=== PATIENT | male | born 1970 | race Caucasian/White ===

== ENCOUNTER → 2016-04-07 | Outpatient (CLI) | payer BC | END | disposition home or self-care (01) | LOC: RADECHMAIN 12:44 | PROVIDERS: ATTEND Family Medicine | DX: R00.1 Bradycardia, unspecified (principal); R00.0 Tachycardia, unspecified | CPT/HCPCS: 93225; 93226 ==

== ENCOUNTER → 2017-02-11 | Outpatient (CLI) | payer BC ==
[2017-02-11 10:35] VITALS: BP 143/92; PULSE 78; RESP 15; TEMP 98.6; BMI 47.0
[2017-02-11 17:38] LABS: HCT 49.3 % (39.0-53.0); HGB 15.9 gm/dL (13.0-17.5); MCH 31.3 pg (25.0-35.0); MCHC 32.3 g/dL (31.0-37.0); MCV 96.7 fL (80.0-100.0); Mean Platelet Volume 8.4; Platelet Count 266 k/uL (150-450); RDW 14.4 % (11.5-15.5); WBC 8.4 k/uL (3.8-10.6)
[2017-02-11 18:08] LABS: ALT 47 U/L (21-72); AST 33 U/L (17-59); Albumin 4.4 g/dL (3.5-5.0); Alkaline Phosphatase 72 U/L (38-126); Anion Gap 10 mmol/L; Blood Urea Nitrogen 13 mg/dL (9-20); Calcium 9.8 mg/dL (8.4-10.2); Carbon Dioxide 25 mmol/L (22-30); Chloride 104 mmol/L (98-107); Cholesterol 203 mg/dL (<200); Glucose 107 mg/dL (74-99); HDL Cholesterol 48 mg/dL (40-60); LDL Cholesterol,Calculated 122 mg/dL (0-99); Potassium 3.5 mmol/L (3.5-5.1); Sodium 139 mmol/L (137-145); Total Bilirubin 0.6 mg/dL (0.2-1.3); Total Protein 7.5 g/dL (6.3-8.2); Triglycerides 164 mg/dL (<150)
[2017-02-12 01:02] LABS: Iron Saturation 13.37 (15.00-50.00)
[2017-02-12 03:36] LABS: Vitamin D 25 Hydroxy 9.4 ng/mL (30.0-100.0)
[2017-02-12 04:06] LABS: Hemoglobin A1C 5.6 % (4.0-6.0)
--- NOTE | 2017-03-24 06:32 | P.HPBAR ---
Bariatric H&P - History & Physicial H&P Date: 02/11/17 History & Physicial: Visit/CC: bariatiric consult (sleeve) Patient initial contact: Initial weight: 143.29 kg Initial weight in pounds: 315.90 Height: 5 ft 8.75 in Initial BMI: 47.0 Last weight: Current weight: 143.29 kg Current weight in pounds: 315.90 Current BMI: 47.0 [place] body weight (based on NIH guidelines): 71.894 kg Excess body weight loss: 0.0% The patient is a 46 year-old M who presents for Bariatric Assessment. DATE OF SERVICE: 02/11/2017 REASON FOR CONSULTATION: Initial bariatric evaluation. HISTORY OF PRESENT ILLNESS: HISTORY OF PRESENT ILLNESS: Joey Chaney is a 47-year-old male who comes in with long-standing morbid obesity. He reports multiple food ALLERGIES. He cannot tolerate chicken or tuna and has trouble with fruits as well as nuts and apples. He is able to tolerate beef. He has had lactose intolerance as a child. He also reports severe gastroesophageal reflux disease most of which related to food intake and has an intolerance to omeprazole. No reports of diarrhea or constipation. He has not seen mechanical engineering intern in the past. He reports obstructive sleep apnea as result of his obesity. No reports of lupus or multiple sclerosis in the family. No reports of stomach or esophageal cancer. He still has his gallbladder. No family personal history of DVTs or pulmonary embolisms. He reports diabetes including hypertension and heart disease and atrial fibrillation with obesity in his father. He reports osteoarthritis of the lower back, left hip including bilateral knees. He also has osteoarthritis of the right shoulder. He also reports troubles with his feet and ankles. He has obstructive sleep apnea. He also reports hypertension. He has a separate history of H. pylori at least twice. At his height of 5 foot 8.75 inches, his ideal body weight is 163 pounds. He comes in weighing 315 pounds. Body mass index is 47.0. He is 152 pounds overweight. He has tried calorie restriction including exercise with minimal improvement of weight loss. PAST MEDICAL HISTORY: 1. Morbid obesity. 2. Body mass index of 47.0 3. Osteoarthritis of the knees. 4. Osteoarthritis of the hips. 5. Osteoarthritis of the lower back. 6. Obstructive sleep apnea. 7. Hypertensive heart disease. 8. Osteoarthritis of the ankles. 9. Gastroesophageal reflux disease. 10. Osteoarthritis of the right shoulder. 11. H pylori gastritis. 12. Lipoma of the abdominal wall. PAST SURGICAL HISTORY: 1. Rhinoplasty. 2. Vasectomy. 3. Tonsillectomy. HOME MEDICATIONS: 1. Hydrochlorothiazide. ALLERGIES: 1. Omeprazole. 2. Multiple food ALLERGIES. SOCIAL HISTORY: No active tobacco use. FAMILY HISTORY: No family history of ulcerative colitis disease or Crohn's disease. Family history of morbid obesity. No lupus in the family. No reports of stomach or esophageal cancer. Family history of diabetes type 2. REVIEW OF ORGAN SYSTEMS: CONSTITUTIONAL: At his height of 5 foot 8.75 inches, his ideal body weight is 163 pounds. He comes in weighing 315 pounds. Body mass index is 47.0. He is 152 pounds overweight. HEENT: Denies any active troubles with vision or hearing. No troubles with swallowing. ENDOCRINE: No diabetes. No hypothyroidism. CARDIOVASCULAR: No reports of palpitations or heart attacks or chest pain. RESPIRATORY: Has daytime somnolence. No asthma. GI: Denies any bright red blood per rectum. No diarrhea or constipation. MUSCULOSKELETAL: Has lower back pain and joint pain. Has osteoarthritis of the knees. History of bilateral lower extremity edema. NEURO: No headaches. No seizure disorders. PSYCH: No depression or suicidal ideation. RHEUMATOLOGIC: No lupus. No rheumatoid arthritis. HEMATOLOGIC: Denies any abnormal bleeding or bruising. No personal history of DVTs. SKIN: No rash. No skin cancer. PHYSICAL EXAM: VITAL SIGNS: Height 5 foot 8.75 inches, weight 315 pounds. BMI 47.0 Vital Signs Temp 98.6 F 02/11/17 10:05 Pulse 78 02/11/17 10:05 Resp 15 02/11/17 10:05 BP 143/92 02/11/17 10:05 Pulse Ox GENERAL: Well-developed in no acute distress. HEENT: No scleral icterus. Extraocular movements grossly intact. Hears conversational speech. No nasal drainage. NECK: Supple without lymphadenopathy. CHEST: Nonlabored respirations with equal bilateral excursions. CARDIOVASCULAR: Regular rate and regular rhythm. Distal 2+ pulses. ABDOMEN: Obese, soft, nontender, nondistended. MUSCULOSKELETAL: No clubbing, cyanosis. Gross strength 5/5 distal lower extremities. 1+ pre-tibial pitting edema. NEURO: No focal or lateralizing signs. Cranial nerves 2 through 12 grossly within normal limits. PSYCH: Appropriate affect. Alert and oriented to person, place and time. SKIN: Good skin turgor. Well perfused. ASSESSMENT: 1. Morbid obesity. 2. Body mass index of 47.0 3. Osteoarthritis of the knees. 4. Osteoarthritis of the hips. 5. Osteoarthritis of the lower back. 6. Obstructive sleep apnea. 7. Hypertensive heart disease. 8. Osteoarthritis of the ankles. 9. Gastroesophageal reflux disease. 10. Osteoarthritis of the right shoulder. 11. H pylori gastritis. 12. Family history of morbid obesity. 13. Family history of diabetes type 2. 14. Family history of heart disease. 15. Family history of gallbladder disease. 16. Lipoma of the abdominal wall. PLAN: 1. Surgical options including a band, gastric bypass, sleeve gastrectomy were described in detail. Alternatives such as gastric balloon including duodenal switch were described. 2. The [place] bariatric surgical collaborative data and outcomes calculator were described with surgical options. 3. Recommend a bariatric metabolic panel to evaluate for micro- including macronutrient deficiencies. 4. For history of daytime somnolence, recommend evaluation and treatment for sleep apnea. 5. Dietary surveillance and counseling was reviewed, I have asked increased protein intake to at least 80 grams daily. 6. Will need cardiac risk assessment. 7. Recommend medical risk assessment. 8. Psych assessment per insurance guidelines. 9. Follow up upon completion of upper endoscopy. 10. Recommend 12-lead EKG with family history of hypertensive heart disease. 11. Recommend upper endoscopy. 12. Recommend evaluation with mechanical engineering intern for desensitization of multiple ALLERGIES. 13. Recommend ultrasound of the gallbladder for family history of gallbladder disease including symptoms. 14. On further discussion, patient reports intermittent abdominal pain. Pain also potentially localized along the left lower quadrant first diverticulitis cannot be excluded. Recommend CT of the abdomen and pelvis. 15. He is also seeking excision of abdominal wall lipoma. Thank you for this consultation. Laboratory Last Values WBC 8.4 k/uL (3.8-10.6) 02/11/17 16:59 RBC 5.10 m/uL (4.30-5.90) 02/11/17 16:59 Hgb 15.9 gm/dL (13.0-17.5) 02/11/17 16:59 Hct 49.3 % (39.0-53.0) 02/11/17 16:59 MCV 96.7 fL (80.0-100.0) 02/11/17 16:59 MCH 31.3 pg (25.0-35.0) 02/11/17 16:59 MCHC 32.3 g/dL (31.0-37.0) 02/11/17 16:59 RDW 14.4 % (11.5-15.5) 02/11/17 16:59 Plt Count 266 k/uL (150-450) 02/11/17 16:59 Sodium 139 mmol/L (137-145) 02/11/17 16:59 Potassium 3.5 mmol/L (3.5-5.1) 02/11/17 16:59 Chloride 104 mmol/L (98-107) 02/11/17 16:59 Carbon Dioxide 25 mmol/L (22-30) 02/11/17 16:59 Anion Gap 10 mmol/L 02/11/17 16:59 BUN 13 mg/dL (9-20) 02/11/17 16:59 Creatinine 0.86 mg/dL (0.66-1.25) 02/11/17 16:59 Est GFR (MDRD) Af Amer >60 (>60 ml/min/1.73 sqM) 02/11/17 16:59 Est GFR (MDRD) Non-Af >60 (>60 ml/min/1.73 sqM) 02/11/17 16:59 Glucose 107 mg/dL (74-99) H 02/11/17 16:[address] Glu mg/dL 114 02/11/17 16:59 Hemoglobin A1c 5.6 % (4.0-6.0) 02/11/17 16:59 Calcium 9.8 mg/dL (8.4-10.2) 02/11/17 16:59 Iron 44 ug/dL (65-175) L 02/11/17 16:59 TIBC 329 ug/dL (228-460) 02/11/17 16:59 Iron Saturation 13.37 (15.00-50.00) L 02/11/17 16:59 Ferritin 119.3 ng/mL (22.0-322.0) 02/11/17 16:59 Total Bilirubin 0.6 mg/dL (0.2-1.3) 02/11/17 16:59 AST 33 U/L (17-59) 02/11/17 16:59 ALT 47 U/L (21-72) 02/11/17 16:59 Alkaline Phosphatase 72 U/L (38-126) 02/11/17 16:59 Total Protein 7.5 g/dL (6.3-8.2) 02/11/17 16:59 Albumin 4.4 g/dL (3.5-5.0) 02/11/17 16:59 Triglycerides 164 mg/dL (<150) H 02/11/17 16:59 Cholesterol 203 mg/dL (<200) H 02/11/17 16:59 LDL Cholesterol, Calc 122 mg/dL (0-99) H 02/11/17 16:59 HDL Cholesterol 48 mg/dL (40-60) 02/11/17 16:59 Vitamin B1 50 ug/L (38-122) 02/11/17 16:59 Vitamin B12 501.0 pg/mL (200.0-944.0) 02/11/17 16:59 Vitamin D 25-Hydroxy 9.4 ng/mL (30.0-100.0) L 02/11/17 16:59 Folate 14.8 ng/mL 02/11/17 16:59 TSH 2.340 mIU/L (0.465-4.680) 02/11/17 16:59 EKG EKG PERFORMED 02/11/17 16:59 Iron is low. Triglycerides are elevated. Cholesterol elevated. Vitamin D low. Recommend iron including vitamin D supplement. Past Medical History Past Medical History: GERD/Reflux, Hypertension, Osteoarthritis (OA), Sleep Apnea/CPAP/BIPAP Additional Past Medical History / Comment(s): Hx of H-pylori dx x2, right shoulder pain, pain in lower left lumbar region with radiculopathy to left leg, bilateral knee pain, History of Any Multi-Drug Resistant Organisms: None Reported Past Surgical History: Hysterectomy, Tonsillectomy Additional Past Surgical History / Comment(s): rhinoplasty x2 for deviated septum and injury to nose, vasectomy, Additional Past Anesthesia/Blood Transfusion Reaction / Comm: Difficulty waking up Past Psychological History: No Psychological Hx Reported Smoking Status: Never smoker Past Alcohol Use History: Rare Past Drug Use History: None Reported - Past Family History Mother Family Medical History: No Reported History Father Family Medical History: Diabetes Mellitus, Hypertension Additional Family Medical History / Comment(s): Type 2 DM, Surgical - Exam Vital Signs Temp Pulse Resp BP 98.6 F 78 15 143/92 02/11/17 10:05 02/11/17 10:05 02/11/17 10:05 02/11/17 10:05 Results - Labs 02/11/17 16:59 02/11/17 16:59 Bariatric Checklist Checklist: Plan: Checklist: EGD: 1. Hiatal hernia: 2. H. Pylori: HgbA1c: Vitamin D: Smoking: Never smoker Primary care physician referral: mell diamond Psychiatry clearance: Cardiology clearance: Sleep study: Diet journal: VTE risk score: VTE risk level: Rehab needs at discharge:
== END | disposition home or self-care (01) ==
LOC: BARWHC3 09:27
PROVIDERS: ATTEND Surgery Plastic and Reconstructive Surgery
DX: Z48.815 Encounter for surgical aftercare following surgery on the digestive system (principal); E66.01 Morbid (severe) obesity due to excess calories; M17.0 Bilateral primary osteoarthritis of knee; M16.0 Bilateral primary osteoarthritis of hip; M47.816 Spondylosis without myelopathy or radiculopathy, lumbar region; G47.33 Obstructive sleep apnea (adult) (pediatric); I11.9 Hypertensive heart disease without heart failure; M19.071 Primary osteoarthritis, right ankle and foot; M19.072 Primary osteoarthritis, left ankle and foot; K21.9 Gastro-esophageal reflux disease without esophagitis; M19.011 Primary osteoarthritis, right shoulder; B96.81 Helicobacter pylori [H. pylori] as the cause of diseases classified elsewhere; D17.5 Benign lipomatous neoplasm of intra-abdominal organs; E44.0 Moderate protein-calorie malnutrition; E55.9 Vitamin D deficiency, unspecified; G47.30 Sleep apnea, unspecified; E88.81 Metabolic syndrome and other insulin resistance; M19.90 Unspecified osteoarthritis, unspecified site; Z68.42 Body mass index [BMI] 45.0-49.9, adult; Z90.89 Acquired absence of other organs; Z79.899 Other long term (current) drug therapy; Z91.010 Allergy to peanuts; Z91.012 Allergy to eggs; Z91.013 Allergy to seafood; Z91.011 Allergy to milk products
CPT/HCPCS: 80053; 80061; 82306; 82607; 82728; 82746; 83036; 83540; 83550; 84425; 84443; 85027; 93005; 99211

== ENCOUNTER → 2017-02-26 | Outpatient (CLI) | payer BC ==
--- NOTE | 2017-02-26 15:56 | US ---
EXAMINATION TYPE: US gallbladder DATE OF EXAM: 02/26/2017 COMPARISON: NONE CLINICAL HISTORY: K52.00 Diverticulitis R10.12 Left Lower Quad. Patient being evaluated prior to estrellita jessee sleeve bypass surgery; Ht 5'10, Wt 304lbs EXAM MEASUREMENTS: Liver Length: 13.4 cm Gallbladder Wall: 0.2 cm CBD: 0.4 cm Right Kidney: 10.8 x 6.9 x 6.0 cm Pancreas: mid and tail obscured by overlying bowel gas Liver: fatty as is hyperechoic to right renal cortex Gallbladder: wnl Evidence for sonographic Finley's sign: Yes CBD: wnl Right Kidney: wnl Visualized pancreas is slightly heterogeneous without worrisome mass or ductal dilatation. Visualized liver is markedly heterogeneously hyperechoic. No intrahepatic ductal dilatation is seen. Evaluation for focal masses is suboptimal due to the heterogeneity. IMPRESSION: Marked fatty infiltration of liver noted.
--- NOTE | 2017-02-26 18:02 | CT ---
EXAMINATION TYPE: CT abdomen pelvis w con DATE OF EXAM: 02/26/2017 COMPARISON: NONE HISTORY: LUQ pain. CT DLP: 3714.9 mGycm Automated exposure control for dose reduction was used. TECHNIQUE: Helical acquisition of images was performed from the lung bases through the pelvis. CONTRAST: Performed with Oral Contrast and with IV Contrast, patient injected with 100ml mL of Omnipaque 300. FINDINGS: Lung bases are clear. There is no pleural effusion. Heart size is fairly normal. Liver spleen pancreas gallbladder appear normal. Bile ducts are not dilated. There is probably a smal l hiatal hernia. There is no adrenal mass. Kidneys show satisfactory contrast opacification. There is no hydronephrosi s. There is no retroperitoneal adenopathy. There is no ascites. Bladder distends smoothly. There is n o sign of a pelvic mass. There are some diverticula of the left colon. There is no ascites. There is no sign of a pelvic mass. There are some phleboliths in the pelvis on the right side. The appendix appears normal. I see no intestinal wall thickening. There is no sign of bowel obstructi on. I see no bony destructive process. IMPRESSION: THERE IS MINIMAL COLONIC DIVERTICULOSIS WITHOUT SIGN OF DIVERTICULITIS. NO SIGN OF ACUTE ABDOMEN AND PELVIS. SMALL HIATAL HERNIA.
== END | disposition home or self-care (01) ==
LOC: RADCTMAIN 14:49
PROVIDERS: ATTEND Surgery Plastic and Reconstructive Surgery
DX: K57.30 Diverticulosis of large intestine without perforation or abscess without bleeding (principal); K44.9 Diaphragmatic hernia without obstruction or gangrene; K76.0 Fatty (change of) liver, not elsewhere classified
CPT/HCPCS: 76705; 74177; Q9967

== ENCOUNTER 2017-03-31 08:01 | Day surgery (SDC) | payer BC ==
[2017-03-26 11:19] VITALS: BMI 42.9
[~2017-03-31 08:01] MED LIST: LACTATED RINGERS 1,000 ML IV SCH; LIDOCAINE 1% 20 ML VIAL (10MG/ML) FOR IV START INTRADERMA PRN
[2017-03-31 08:29] VITALS: RESP 18; TEMP 98.1
--- NOTE | 2017-03-31 08:56 | P.GSHP ---
History of Present Illness H&P Date: 03/31/17 CHIEF COMPLAINT: GERD HISTORY OF PRESENT ILLNESS: The patient is a 47-year-old male who presents reports gastroesophageal reflux disease. Upper endoscopy was offered for further evaluation and management. PAST MEDICAL HISTORY: Please see list. PAST SURGICAL HISTORY: Please see list. MEDICATIONS: Please see list. ALLERGIES: Please see list. SOCIAL HISTORY: No illicit drug use FAMILY HISTORY: No reports of Crohn disease or ulcerative colitis. REVIEW OF ORGAN SYSTEMS: CONSTITUTIONAL: No reports of fevers or chills. GI: Denies any blood in stools or constipation. PHYSICAL EXAM: VITAL SIGNS: Stable GENERAL: Well-developed and pleasant in no acute distress. HEENT: No scleral icterus. Extraocular movements grossly intact. Moist buccal mucosa. NECK: Supple without lymphadenopathy. CHEST: Unlabored respirations. Equal bilateral excursions. CARDIOVASCULAR: Regular rate and rhythm. Distal 2+ pulses. ABDOMEN: Soft, nondistended. MUSCULOSKELETAL: No clubbing, cyanosis, or edema. ASSESSMENT: 1. Gastroesophageal reflux disease PLAN: 1. Recommend proceeding with an upper endoscopy Past Medical History Past Medical History: GERD/Reflux, Hypertension, Osteoarthritis (OA), Sleep Apnea/CPAP/BIPAP Additional Past Medical History / Comment(s): Hx of H-pylori dx x2, NO MACHINE FOR SLEEP APNEA, ABLE TO USE BREATHE RIGHT STRIPS History of Any Multi-Drug Resistant Organisms: None Reported Past Surgical History: Tonsillectomy Additional Past Surgical History / Comment(s): rhinoplasty x2 for deviated septum and injury to nose, vasectomy, Past Anesthesia/Blood Transfusion Reactions: Previous Problems w/ Anesthesia Additional Past Anesthesia/Blood Transfusion Reaction / Comment(s): Difficulty waking up Smoking Status: Never smoker - Past Family History Mother Family Medical History: No Reported History Father Family Medical History: Diabetes Mellitus, Hypertension Additional Family Medical History / Comment(s): Type 2 DM, Medications and Allergies Home Medications Medication Instructions Recorded Confirmed Type Calcium Carbonate [Tums] 1 tab PO DIRECTED PRN 03/26/17 03/26/17 History Verapamil HCl [Verapamil ER] 180 mg PO QAM 03/26/17 03/31/17 History Allergies Allergy/AdvReac Type Severity Reaction Status Date / Time corn Allergy Anaphylaxis Verified 03/31/17 08:29 lactose Allergy Diarrhea Verified 03/31/17 08:29 peas Allergy Anaphylaxis Verified 03/31/17 08:29 pollen extracts Allergy Rash/Hives Verified 03/31/17 08:29 Pork/Porcine Containing Allergy Nausea & Verified 03/31/17 08:29 Products Vomiting & Diarrhea Poultry Allergy Anaphylaxis Verified 03/31/17 08:29 tuna oil Allergy Anaphylaxis Verified 03/31/17 08:29 omeprazole AdvReac Severe "BONE PAIN" Verified 03/31/17 08:29 Surgical - Exam Vital Signs Temp Pulse Resp BP Pulse Ox 98.1 F 87 18 139/92 97 03/31/17 08:25 03/31/17 08:25 03/31/17 08:25 03/31/17 08:25 03/31/17 08:25
[2017-03-31] MEDS ORDERED: PROPOFOL 10 MG/ML 20 ML VIAL IV ONE (09:29)
[2017-03-31] MEDS ORDERED: LIDOCAINE 1% INJ 10MG/ML (20 ML MDV) ONE (09:29)
--- NOTE | 2017-03-31 09:40 | P.PCN ---
Date of Procedure: 03/31/17 Description of Procedure: PREOPERATIVE DIAGNOSIS: Gastroesophageal reflux disease. Morbid obesity. POSTOPERATIVE DIAGNOSIS: Morbid obesity. Gastritis. Gastroesophageal reflux disease. Diaphragmatic hiatal hernia without obstruction. OPERATION: Esophagogastroduodenoscopy with biopsies along antrum. SURGEON: Ximena Caro MD ANESTHESIA: MAC. INDICATIONS: The patient is a 47-year-old male who presents with a history of reflux disease. Benefits and risks of the procedure were described. Informed consent was obtained. DESCRIPTION: The patient was brought into the endoscopy suite and laid in the left lateral decubitus position. An Olympus gastroscope was passed along the posterior oropharynx down to the distal esophagus where the squamocolumnar junction was encountered at 36 cm from the incisors. The stomach was entered and no bile reflux was found. Additional findings are listed below. Biopsies with cold forceps were obtained of the antrum. The first through third portion of the duodenum was examined and unremarkable. Retroflexion of the scope confirmed Hill grade 4 lower esophageal valve. The squamocolumnar junction demostrated chronic LA grade C erosive esophagitis. The stomach was desufflated. The patient tolerated the procedure well. FINDINGS: Squamocolumnar junction 36 cm from the incisors. Diaphragmatic hiatus at 40 cm. Hiatal hernia 4 cm, sliding Hill grade 4 lower esophageal valve. LA grade C erosive esophagitis, starting at 34 cm from the incisors. No active duodenitis. Chronic gastritis. RECOMMENDATIONS: Continue medical therapy. Further recommendations pending results of pathology report. Upper endoscopy as needed. Will benefit from antireflux surgical procedure Plan - Discharge Summary New Discharge Prescriptions: No Action Verapamil HCl [Verapamil ER] 180 mg PO QAM Calcium Carbonate [Tums] 1 tab PO DIRECTED PRN PRN Reason: GERD Discharge Medication List Calcium Carbonate [Tums] 1 tab PO DIRECTED PRN 03/26/17 [History] Verapamil HCl [Verapamil ER] 180 mg PO QAM 03/26/17 [History]
[2017-03-31 10:03] VITALS: BP 155/96; PULSE 84
== END 2017-03-31 10:22 | disposition home or self-care (01) ==
LOC: ORWHC2ENDO 08:01
PROVIDERS: ATTEND Surgery Plastic and Reconstructive Surgery
DX: K20.0 Eosinophilic esophagitis (principal); L92.2 Granuloma faciale [eosinophilic granuloma of skin]; K44.9 Diaphragmatic hernia without obstruction or gangrene; K29.50 Unspecified chronic gastritis without bleeding; K21.9 Gastro-esophageal reflux disease without esophagitis; E66.01 Morbid (severe) obesity due to excess calories; Z68.41 Body mass index [BMI] 40.0-44.9, adult; I10 Essential (primary) hypertension; Z79.899 Other long term (current) drug therapy; Z88.8 Allergy status to other drugs, medicaments and biological substances
CPT/HCPCS: 88305; 43239; J2001; J2704; 88312

== ENCOUNTER → 2017-04-07 | Outpatient (CLI) | payer BC ==
[2017-04-07 16:39] VITALS: BP 146/85; PULSE 81; RESP 16; TEMP 97.7; BMI 46.0
--- NOTE | 2017-06-14 18:22 | P.PN ---
Subjective Progress Note Date: 04/07/17 DATE OF SERVICE: 04/07/2017 CHIEF COMPLAINT: Bariatric evaluation HISTORY OF PRESENT ILLNESS: HISTORY OF PRESENT ILLNESS: Joey Chaney is a 47-year-old male who comes in with long-standing morbid obesity. He initially presented [facility] January 2017. He reports intolerance to fatty greasy foods. He has completed an upper endoscopy demonstrating hiatal hernia for which he is symptomatic. His multiple food ALLERGIES. He is looking into the sleeve gastrectomy. As a result of his obesity, he has obstructive sleep apnea including hypertension as well as gastroesophageal reflux disease. At his height of 5 foot 8.75 inches, his ideal body weight is 163 pounds. He comes in weighing 309 pounds. He has lost 6 pounds in 2 months. Body mass index was 47.0 now down to 46.0. He is 146 pounds overweight. PAST MEDICAL HISTORY: 1. Morbid obesity. 2. Body mass index of 47.0 3. Osteoarthritis of the knees. 4. Osteoarthritis of the hips. 5. Osteoarthritis of the lower back. 6. Obstructive sleep apnea. 7. Hypertensive heart disease. 8. Osteoarthritis of the ankles. 9. Gastroesophageal reflux disease. 10. Osteoarthritis of the right shoulder. 11. H pylori gastritis. 12. Lipoma of the abdominal wall. PAST SURGICAL HISTORY: 1. Rhinoplasty. 2. Vasectomy. 3. Tonsillectomy. 4. Upper endoscopy HOME MEDICATIONS: 1. Verapamil 2. Zantac 3. Tums ALLERGIES: 1. Omeprazole. 2. Multiple food ALLERGIES. SOCIAL HISTORY: No active tobacco use. FAMILY HISTORY: No family history of ulcerative colitis disease or Crohn's disease. Family history of morbid obesity. No lupus in the family. No reports of stomach or esophageal cancer. Family history of diabetes type 2. REVIEW OF ORGAN SYSTEMS: CONSTITUTIONAL: At his height of 5 foot 8.75 inches, his ideal body weight is 163 pounds. He comes in weighing 309 pounds. He has lost 6 pounds in 2 months. Body mass index was 47.0 now down to 46.0. He is 146 pounds overweight. HEENT: Denies any active troubles with vision or hearing. No troubles with swallowing. ENDOCRINE: No diabetes. No hypothyroidism. CARDIOVASCULAR: No reports of palpitations or heart attacks or chest pain. RESPIRATORY: Has daytime somnolence. No asthma. Has obstructive sleep apnea. GI: Denies any bright red blood per rectum. No diarrhea or constipation. Has gastroesophageal reflux disease. MUSCULOSKELETAL: Has lower back pain and joint pain. Has osteoarthritis of the knees. NEURO: No headaches. No seizure disorders. PSYCH: No depression or suicidal ideation. RHEUMATOLOGIC: No lupus. No rheumatoid arthritis. HEMATOLOGIC: Denies any abnormal bleeding or bruising. No personal history of DVTs. SKIN: No rash. No skin cancer. PHYSICAL EXAM: VITAL SIGNS: Height 5 foot 8.75 inches, weight 309 pounds. BMI 46.0 Vital Signs Temp 97.7 F 04/07/17 18:00 Pulse 81 04/07/17 18:00 Resp 16 04/07/17 18:00 BP 146/85 04/07/17 18:00 Pulse Ox GENERAL: Well-developed in no acute distress. HEENT: No scleral icterus. Extraocular movements grossly intact. Hears conversational speech. No nasal drainage. NECK: Supple without lymphadenopathy. CHEST: Nonlabored respirations with equal bilateral excursions. CARDIOVASCULAR: Regular rate and regular rhythm. Distal 2+ pulses. ABDOMEN: Obese, soft, nontender, nondistended. MUSCULOSKELETAL: No clubbing, cyanosis. Gross strength 5/5 distal lower extremities. No pre-tibial pitting edema. NEURO: No focal or lateralizing signs. Cranial nerves 2 through 12 grossly within normal limits. PSYCH: Appropriate affect. Alert and oriented to person, place and time. SKIN: Good skin turgor. Well perfused. LABS: Iron is low. Triglycerides are elevated. Cholesterol elevated. Vitamin D low. EGD FINDINGS: Squamocolumnar junction 36 cm from the incisors. Diaphragmatic hiatus at 40 cm. Hiatal hernia 4 cm, sliding Hill grade 4 lower esophageal valve. LA grade C erosive esophagitis, starting at 34 cm from the incisors. No active duodenitis. Chronic gastritis. PATHOLOGY: Final Pathologic Diagnosis A. STOMACH, BIOPSY: MILD CHRONIC GASTRITIS. B. ESOPHAGUS, BIOPSY: ACUTE AND CHRONIC ESOPHAGITIS WITH RARE EOSINOPHILS, AND INFLAMED GRANULATION TISSUE AND ACUTE INFLAMMATORY CELL EXUDATE CONSISTENT WITH ULCERATION. STUDIES: Ultrasound of the right upper quadrant demonstrates hepatomegaly and fatty liver disease CT of the abdomen and pelvis demonstrates diverticulosis including hiatal hernia and fatty liver disease ASSESSMENT: 1. Morbid obesity. 2. Body mass index of 47.0 to 46.0 3. Osteoarthritis of the knees. 4. Osteoarthritis of the hips. 5. Osteoarthritis of the lower back. 6. Obstructive sleep apnea. 7. Hypertensive heart disease. 8. Osteoarthritis of the ankles. 9. Gastroesophageal reflux disease. 10. Osteoarthritis of the right shoulder. 11. H pylori gastritis. 12. Family history of morbid obesity. 13. Family history of diabetes type 2. 14. Family history of heart disease. 15. Family history of gallbladder disease. 16. Hiatal hernia 17. Diverticulosis 18. Fatty liver disease 19. Iron deficiency 20. Vitamin D deficiency 21. Hypertriglyceridemia PLAN: 1. All of the studies were reviewed for history of chronic abdominal pain consistent with hiatal hernia including fatty liver disease. 2. The severity of gastroesophageal reflux disease, benefits and risks of hiatal hernia repair were described. 3. Recommend manometry for robotic-assisted hiatal hernia repair Did 4. Symptoms are highly suspicious for cholecystitis, chronic. A potential cholecystectomy in the future was described. 5. Inpatient hospitalization overnight for robotic-assisted hiatal hernia repair with mesh. 6. DVT prophylaxis. 7. Antibiotic prophylaxis Objective - Vital Signs Vital signs: Vital Signs Temp 97.7 F 04/07/17 16:36 Pulse 81 04/07/17 16:36 Resp 16 04/07/17 16:36 BP 146/85 04/07/17 16:36 Pulse Ox Intake & Output 04/06/17 04/07/17 04/07/17 18:59 06:59 18:59 Weight 140.415 kg
== END | disposition home or self-care (01) ==
LOC: BARWHC3 15:27
PROVIDERS: ATTEND Surgery Plastic and Reconstructive Surgery
DX: E66.01 Morbid (severe) obesity due to excess calories (principal); M17.0 Bilateral primary osteoarthritis of knee; M16.0 Bilateral primary osteoarthritis of hip; M19.90 Unspecified osteoarthritis, unspecified site; G47.33 Obstructive sleep apnea (adult) (pediatric); I11.9 Hypertensive heart disease without heart failure; I50.9 Heart failure, unspecified; K21.9 Gastro-esophageal reflux disease without esophagitis; M19.011 Primary osteoarthritis, right shoulder; B96.81 Helicobacter pylori [H. pylori] as the cause of diseases classified elsewhere; Z82.49 Family history of ischemic heart disease and other diseases of the circulatory system; Z83.3 Family history of diabetes mellitus; Z83.79 Family history of other diseases of the digestive system; K44.9 Diaphragmatic hernia without obstruction or gangrene; K57.90 Diverticulosis of intestine, part unspecified, without perforation or abscess without bleeding; K76.0 Fatty (change of) liver, not elsewhere classified; D50.9 Iron deficiency anemia, unspecified; E55.9 Vitamin D deficiency, unspecified; E78.1 Pure hyperglyceridemia; Z68.42 Body mass index [BMI] 45.0-49.9, adult; Z88.8 Allergy status to other drugs, medicaments and biological substances; Z91.018 Allergy to other foods; Z79.899 Other long term (current) drug therapy
CPT/HCPCS: 99211

== ENCOUNTER → 2017-06-29 | Outpatient (CLI) | payer BC ==
--- NOTE | 2017-06-29 17:54 | CONS ---
CONSULTATION DATE OF SERVICE: 06/29/2017. REASON FOR CONSULTATION: Obstructive sleep apnea. HISTORY OF PRESENT ILLNESS: This is a 47-year-old obese male patient, diagnosed having obstructive sleep apnea more than 10 years ago. He was briefly placed on BiPAP and subsequently quit the treatment. Over the years he gained a significant amount of weight and currently is up to 316 and his current BMI is 47.3. He is interested in obtaining a gastric sleeve procedure. He was [facility] for reevaluation regarding obstructive sleep apnea. He is currently chronically fatigued and sleepy. His notes that he snores very loud and he quits breathing. His sleep is fragmented. He goes to bed around 9-10 p.m. wakes up 6:00 am in the morning. His non-refreshed. He drinks coffee. 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 Unable to lose weight successfully. He has a hiatal hernia. He has hypertension and occasional acid reflux. No sleep paralysis. No hallucinations. No cataplexy. No substance abuse. No head trauma. He is being investigated also for hypercoagulable state, knowing that his brother from a complication of a DVT and pulmonary embolism following cervical spine surgery. Note that two of his brothers and his father had obstructive sleep apnea in addition. PAST MEDICAL HISTORY: 1. Obstructive sleep apnea. 2. Hiatal hernia. 3. Obesity. 4. Hypertension. 5. Acid reflux. SURGICAL HISTORY: Rhinoplasty, vasectomy and tonsillectomy. DRUG ALLERGIES: Not known. The patient has allergic rhinitis and is allergic to dust. He also has allergies to pollen and tuna. OUTPATIENT MEDICATIONS: Lisinopril and Zantac. SOCIAL HISTORY: Nonsmoker. No history of IV drugs. Drinks 2 to 3 cups of coffee a day. FAMILY HISTORY: Brother x2 and father have obstructive sleep apnea. DVT and pulmonary embolism also runs in the family. REVIEW OF SYSTEMS: A 12-point review of systems was done. Positive for weight gain. Positive for increased lethargy, sleepiness, tiredness and fatigue. No sleep paralysis. No hallucinations. No cataplexy. No dreams or nightmares. No unusual behavior at nighttime during sleep. No history of any motor vehicle accidents because of falling sleepy. No anxiety. No depression. No grinding of the teeth. No sleepwalking or sleeptalking. No palpitations, no heartburn, no chest pain. No angina or shortness of breath. No sweating. No sleep talking. No restlessness in the lower extremities. No sexual dysfunction. PHYSICAL EXAMINATION: BP is 134/72, pulse 100, respirations 16, temperature 98.2, saturation 97% on room air. Weight is around 16, height is 5 feet 8 inches. GENERAL APPEARANCE: Calm and comfortable. HEAD: Atraumatic, normocephalic. NECK: Short, supple. Mallampati Class 1. There is no goiter or neck masses. LUNGS: Clear to auscultation. HEART: Sounds regular rhythm. Normal S1, S2. No S3. No murmurs. ABDOMEN: Soft, nontender. No organomegaly. EXTREMITIES: No edema. No cyanosis or clubbing. SKIN: Negative for any wounds or ulcerations. NEUROLOGIC: Positive, alert, oriented x3. There are no focal neurological deficits. PSYCHIATRIC: Negative for anxiety or depression. IMPRESSION: 1. Symptomatic obstructive sleep apnea. The patient is presenting for reevaluation as the patient has experienced worsening hypersomnia and sleepiness. 2. Morbid obesity. BMI of 47.3. 3. Previous history of obstructive sleep apnea diagnosed more than 10 years ago. Currently on no treatment. 4. Hiatal hernia. 5. Hypertension. 6. Acid reflux. PLAN: 1. Proceed with a screening polysomnogram to reevaluate the presence and severity of obstructive sleep apnea and treat accordingly. 2. The patient's bariatric surgeon is currently undergoing evaluation for bariatric surgery. 3. Optimize sleep hygiene measures. 4. Complete the workup for hypercoagulable state, especially with positive family history. 5. We will continue to follow and treat his sleep apnea based on the results of the sleep study. MMODL / IJN: [id number] /
== END | disposition home or self-care (01) ==
LOC: SLEEP 15:47
PROVIDERS: ATTEND Internal Medicine Critical Care Medicine
DX: G47.33 Obstructive sleep apnea (adult) (pediatric) (principal); E66.01 Morbid (severe) obesity due to excess calories; K44.9 Diaphragmatic hernia without obstruction or gangrene; I10 Essential (primary) hypertension; K21.9 Gastro-esophageal reflux disease without esophagitis; Z79.899 Other long term (current) drug therapy; Z91.048 Other nonmedicinal substance allergy status; Z91.09 Other allergy status, other than to drugs and biological substances; Z99.89 Dependence on other enabling machines and devices
CPT/HCPCS: 99211

== ENCOUNTER → 2017-09-20 | Outpatient (CLI) | payer BC ==
[2017-09-20 15:47] VITALS: BMI 47.5
== END | disposition home or self-care (01) ==
LOC: BARWHC3 08:47
PROVIDERS: ATTEND Surgery Plastic and Reconstructive Surgery
DX: E66.01 Morbid (severe) obesity due to excess calories (principal); Z68.42 Body mass index [BMI] 45.0-49.9, adult
CPT/HCPCS: 97804

== ENCOUNTER → 2017-10-20 | Outpatient (CLI) | payer BC ==
--- NOTE | 2017-10-20 17:45 | PN ---
PROGRESS NOTE This is a 47-year-old male patient diagnosed having severe symptomatic obstructive sleep apnea with an AHI of 87, currently coming in for a compliancy check regarding his new CRISTELA treatment. The patient underwent a CPAP titration. He was titrated to a CPAP pressure of 12 cm of water and titration was very successful. On today's evaluation, the patient is a totally different person. He feels great. No hypersomnia or sleepiness during the day. Sleep quality is improved and he is benefiting from the treatment. I checked his compliance data over the past 60 days. He has been compliant, using the CPAP every night without any interruption. His CPAP use for more than 4 hours is 92%. His AHI while on treatment is down to 4.6. Leak factor is 4.2 L/minute. He is averaging around 5 hours and 13 minutes of CPAP use per night. No major hypersomnia or sleepiness during the day. The patient feels great for the time being. No other complaints otherwise for now. He is utilizing an AirFit F20 full-face mask. REVIEW OF SYSTEMS: Twelve-point review of systems was done. Positive findings are all mentioned above in the history of present illness. PHYSICAL EXAMINATION: BP is 141/79, pulse 76, respirations 16, temperature 97.8, saturation 95% on room air. Weight is 321. GENERAL APPEARANCE: Calm, comfortable. Head is atraumatic, normocephalic. NECK: Supple. Short. Crowding of the posterior pharynx. There is no goiter or neck masses. LUNGS: Diminished breath sounds bilaterally; otherwise clear. HEART: Heart sounds are regular rate and rhythm. Normal S1, S2. No S3, S4. No murmurs. ABDOMEN: Soft, nontender. No organomegaly. EXTREMITIES: No edema. No cyanosis or clubbing. IMPRESSION: 1. Severe obstructive sleep apnea with an AHI of 87, currently undergoing successful CPAP therapy at a pressure of 12. 2. Morbid obesity. Still being followed up by the [facility] for bariatric surgery. 3. Hiatal hernia. 4. Chronic hypersomnia, recovered. 5. Hypertension. 6. Acid reflux. PLAN: 1. Encourage weight loss. 2. Sleep in a sidewise body position. 3. Implement good sleep hygiene principles. 4. Continue CPAP therapy at a pressure of 12. 5. Continue the same mask interface. 6. Treatment is successful. Follow up with Bariatric Surgery regarding weight loss. 7. See me back in a year's time, earlier if needed. MMODL / IJN: [id number] /
== END | disposition home or self-care (01) ==
LOC: SLEEP 15:55
PROVIDERS: ATTEND Internal Medicine Critical Care Medicine
DX: G47.33 Obstructive sleep apnea (adult) (pediatric) (principal); E66.01 Morbid (severe) obesity due to excess calories; K44.9 Diaphragmatic hernia without obstruction or gangrene; I10 Essential (primary) hypertension; K21.9 Gastro-esophageal reflux disease without esophagitis; Z99.89 Dependence on other enabling machines and devices; Z98.84 Bariatric surgery status

== ENCOUNTER → 2017-12-01 | Outpatient (CLI) | payer BC ==
[2017-12-01 15:04] VITALS: BP 124/73; PULSE 55; RESP 16; TEMP 98.2; BMI 43.1
--- NOTE | 2017-12-01 15:04 | P.PN ---
Subjective Progress Note Date: 12/01/17 HPI: He is following his diet. He has a symptomatic hiatal hernia. ABDOMEN: Soft nontender. PLAN: 1. Went over robotic hiatal hernia.
== END | disposition home or self-care (01) ==
LOC: BARWHC3 14:31
PROVIDERS: ATTEND Surgery Plastic and Reconstructive Surgery
DX: K44.9 Diaphragmatic hernia without obstruction or gangrene (principal)
CPT/HCPCS: 99211

== ENCOUNTER → 2017-12-13 | Outpatient (CLI) | payer BC ==
[2017-12-13 14:02] LABS: Basophils % (A) 1 %; Eosinophils # (A) 0.2 k/uL (0-0.7); Eosinophils % (A) 3 %; HCT 47.5 % (39.0-53.0); HGB 15.2 gm/dL (13.0-17.5); Lymphocytes % (A) 35 %; MCH 30.9 pg (25.0-35.0); MCHC 31.9 g/dL (31.0-37.0); MCV 97.1 fL (80.0-100.0); Mean Platelet Volume 8.8; Monocytes # (A) 0.3 k/uL (0-1.0); Monocytes % (A) 6 %; Neutrophils % (A) 53 %; Platelet Count 192 k/uL (150-450); RDW 13.3 % (11.5-15.5); WBC 5.8 k/uL (3.8-10.6)
[2017-12-13 14:10] LABS: ALT 37 U/L (21-72); AST 35 U/L (17-59); Albumin 4.5 g/dL (3.5-5.0); Alkaline Phosphatase 69 U/L (38-126); Anion Gap 11 mmol/L; Blood Urea Nitrogen 14 mg/dL (9-20); Calcium 9.8 mg/dL (8.4-10.2); Carbon Dioxide 22 mmol/L (22-30); Chloride 108 mmol/L (98-107); Glucose 81 mg/dL (74-99); Potassium 3.9 mmol/L (3.5-5.1); Sodium 141 mmol/L (137-145); Total Bilirubin 0.9 mg/dL (0.2-1.3); Total Protein 7.4 g/dL (6.3-8.2)
== END | disposition home or self-care (01) ==
LOC: LABPAT 12:39
PROVIDERS: ATTEND Surgery Plastic and Reconstructive Surgery
DX: Z01.812 Encounter for preprocedural laboratory examination (principal); K44.9 Diaphragmatic hernia without obstruction or gangrene
CPT/HCPCS: 36415; 80053; 85025; 93005

== ENCOUNTER 2017-12-20 07:40 | Inpatient (IN) | payer BC ==
--- NOTE | 2017-12-20 06:44 | P.GSHP ---
History of Present Illness H&P Date: 12/20/17 CHIEF COMPLAINT: Gastroesophageal reflux HISTORY OF PRESENT ILLNESS: Joey Chaney is a 47-year-old male who comes in with long-standing morbid obesity. He has completed an upper endoscopy demonstrating hiatal hernia for which he is symptomatic. He comes in for repair of his hiatal hernia. PAST MEDICAL HISTORY: 1. Morbid obesity. 2. Body mass index of 46.1, initial 3. Osteoarthritis of the knees. 4. Osteoarthritis of the hips. 5. Osteoarthritis of the lower back. 6. Obstructive sleep apnea. 7. Hypertensive heart disease. 8. Osteoarthritis of the ankles. 9. Gastroesophageal reflux disease. 10. Osteoarthritis of the right shoulder. 11. H pylori gastritis. 12. Lipoma of the abdominal wall. PAST SURGICAL HISTORY: 1. Rhinoplasty. 2. Vasectomy. 3. Tonsillectomy. 4. Upper endoscopy HOME MEDICATIONS: 1. Verapamil 2. Zantac 3. Tums ALLERGIES: 1. Omeprazole. 2. Multiple food ALLERGIES. SOCIAL HISTORY: No active tobacco use. FAMILY HISTORY: No family history of ulcerative colitis disease or Crohn's disease. Family history of morbid obesity. No lupus in the family. No reports of stomach or esophageal cancer. Family history of diabetes type 2. REVIEW OF ORGAN SYSTEMS: CONSTITUTIONAL: At his height of 5 foot 8.75 inches, his ideal body weight is 163 pounds. He was 309 pounds, 8 months ago. He has lost 27 pounds in 8 months. Body mass index was 46.1 now down to 42.0. He is 119 pounds overweight. HEENT: Denies any active troubles with vision or hearing. No troubles with swallowing. ENDOCRINE: No diabetes. No hypothyroidism. CARDIOVASCULAR: No reports of palpitations or heart attacks or chest pain. RESPIRATORY: Has daytime somnolence. No asthma. Has obstructive sleep apnea. GI: Denies any bright red blood per rectum. No diarrhea or constipation. Has gastroesophageal reflux disease. MUSCULOSKELETAL: Has lower back pain and joint pain. Has osteoarthritis of the knees. NEURO: No headaches. No seizure disorders. PSYCH: No depression or suicidal ideation. RHEUMATOLOGIC: No lupus. No rheumatoid arthritis. HEMATOLOGIC: Denies any abnormal bleeding or bruising. No personal history of DVTs. SKIN: No rash. No skin cancer. PHYSICAL EXAM: VITAL SIGNS: Height 5 foot 8.75 inches, weight 282 pounds. BMI 42 GENERAL: Well-developed in no acute distress. HEENT: No scleral icterus. Extraocular movements grossly intact. Hears conversational speech. No nasal drainage. NECK: Supple without lymphadenopathy. CHEST: Nonlabored respirations with equal bilateral excursions. CARDIOVASCULAR: Regular rate and regular rhythm. Distal 2+ pulses. ABDOMEN: Obese, soft, nontender, nondistended. MUSCULOSKELETAL: No clubbing, cyanosis. Gross strength 5/5 distal lower extremities. No pre-tibial pitting edema. NEURO: No focal or lateralizing signs. Cranial nerves 2 through 12 grossly within normal limits. PSYCH: Appropriate affect. Alert and oriented to person, place and time. SKIN: Good skin turgor. Well perfused. LABS: Iron is low. Triglycerides are elevated. Cholesterol elevated. Vitamin D low. EGD FINDINGS: Squamocolumnar junction 36 cm from the incisors. Diaphragmatic hiatus at 40 cm. Hiatal hernia 4 cm, sliding Hill grade 4 lower esophageal valve. LA grade C erosive esophagitis, starting at 34 cm from the incisors. No active duodenitis. Chronic gastritis. PATHOLOGY: Final Pathologic Diagnosis A. STOMACH, BIOPSY: MILD CHRONIC GASTRITIS. B. ESOPHAGUS, BIOPSY: ACUTE AND CHRONIC ESOPHAGITIS WITH RARE EOSINOPHILS, AND INFLAMED GRANULATION TISSUE AND ACUTE INFLAMMATORY CELL EXUDATE CONSISTENT WITH ULCERATION. STUDIES: Ultrasound of the right upper quadrant demonstrates hepatomegaly and fatty liver disease CT of the abdomen and pelvis demonstrates diverticulosis including hiatal hernia and fatty liver disease ASSESSMENT: 1. Morbid obesity. 2. Body mass index of 46.1 initial 3. Osteoarthritis of the knees. 4. Osteoarthritis of the hips. 5. Osteoarthritis of the lower back. 6. Obstructive sleep apnea. 7. Hypertensive heart disease. 8. Osteoarthritis of the ankles. 9. Gastroesophageal reflux disease. 10. Osteoarthritis of the right shoulder. 11. H pylori gastritis. 12. Family history of morbid obesity. 13. Family history of diabetes type 2. 14. Family history of heart disease. 15. Family history of gallbladder disease. 16. Hiatal hernia 17. Diverticulosis 18. Fatty liver disease 19. Iron deficiency 20. Vitamin D deficiency 21. Hypertriglyceridemia PLAN: 1. All of the studies were reviewed for history of chronic abdominal pain consistent with hiatal hernia including fatty liver disease. 2. The severity of gastroesophageal reflux disease, benefits and risks of hiatal hernia repair were described. 3. Inpatient hospitalization overnight for robotic-assisted hiatal hernia repair with mesh. 4. DVT prophylaxis. 5. Antibiotic prophylaxis Past Medical History Past Medical History: GERD/Reflux, Hypertension, Osteoarthritis (OA), Sleep Apnea/CPAP/BIPAP Additional Past Medical History / Comment(s): Hx of H-pylori dx x2, NO MACHINE FOR SLEEP APNEA, ABLE TO USE BREATHE RIGHT STRIPS History of Any Multi-Drug Resistant Organisms: None Reported Past Surgical History: Tonsillectomy Additional Past Surgical History / Comment(s): rhinoplasty x2 for deviated septum and injury to nose, vasectomy, Additional Past Anesthesia/Blood Transfusion Reaction / Comment(s): Difficulty waking up Smoking Status: Never smoker - Past Family History Mother Family Medical History: No Reported History Father Family Medical History: Diabetes Mellitus, Hypertension Additional Family Medical History / Comment(s): Type 2 DM, Brother(s) Family Medical History: Pulmonary Embolus Additional Family Medical History / Comment(s): caused Medications and Allergies Home Medications Medication Instructions Recorded Confirmed Type Ferrous Sulfate [Feosol] 325 mg PO BID 12/08/17 12/08/17 History Multivitamin [Men's Multi-Vitamin] 1 each PO DAILY 12/08/17 12/08/17 History Ranitidine HCl [Zantac] 75 mg PO DAILY 12/08/17 12/08/17 History Allergies Allergy/AdvReac Type Severity Reaction Status Date / Time corn Allergy Anaphylaxis Verified 12/08/17 15:02 lactose Allergy Diarrhea Verified 12/08/17 15:02 peas Allergy Anaphylaxis Verified 12/08/17 15:02 pollen extracts Allergy Rash/Hives Verified 12/08/17 15:02 Pork/Porcine Containing Allergy Nausea & Verified 12/08/17 15:02 Products Vomiting & Diarrhea Poultry Allergy Anaphylaxis Verified 12/08/17 15:02 tuna oil Allergy Anaphylaxis Verified 12/08/17 15:02 omeprazole AdvReac Severe "BONE PAIN" Verified 12/08/17 15:02
[~2017-12-20 07:40] MED LIST changes: +ACETAMINOPHEN IV (For NPO) 1,000 MG in EMPTY BAG 1 BAG IVPB ONE; +CHLORHEXIDINE GLUCONATE 15 ML CUP MUCOUS MEM ONE; +DEXAMETHASONE SOD PHOSPHATE 10 MG/ML 1 ML VIAL IV ONE; +ENOXAPARIN 40 MG/0.4 ML SYRINGE SQ STA; -LACTATED RINGERS 1,000 ML IV SCH; -LIDOCAINE 1% 20 ML VIAL (10MG/ML) FOR IV START INTRADERMA PRN; +MIDAZOLAM 2 MG/2 ML VIAL IV PRN; +ONDANSETRON 4 MG/2 ML VIAL IVP ONE; +SCOPOLAMINE 1.5MG/72HR PATCH TRANSDERM ONE
[2017-12-20] MEDS: LACTATED RINGERS 1,000 ML IV SCH (08:51)
[2017-12-20] MEDS ORDERED: ACETAMINOPHEN IV (For NPO) 1,000 MG/100 ML VIAL IVPB ONE (08:54)
[2017-12-20] MEDS ORDERED: ROCURONIUM BROMIDE 10 MG/ML 10 ML VIAL IV ONE (09:41)
[2017-12-20] MEDS ORDERED: LIDOCAINE 1% INJ 10MG/ML (20 ML MDV) ONE (09:41)
[2017-12-20] MEDS ORDERED: GLYCOPYRROLATE 0.2 MG/ML 2 ML VIAL ONE (09:41)
[2017-12-20] MEDS ORDERED: NEOSTIGMINE 1 MG/ML 10 ML VIAL ONE (09:41)
[2017-12-20] MEDS ORDERED: fentaNYL (PF) 50 MCG/ML 2 ML AMP ONE (09:41)
[2017-12-20] MEDS ORDERED: HYDROmorphone (PF) 1 MG/ML ONE (09:41)
[2017-12-20] MEDS ORDERED: PROPOFOL 10 MG/ML 20 ML VIAL IV ONE (09:41)
[2017-12-20] MEDS ORDERED: ePHEDrine SULFATE/0.9% NACL/PF 50 MG/5 ML SYRINGE IV ONE (09:41)
[2017-12-20] MEDS ORDERED: MIDAZOLAM 2 MG/2 ML VIAL ONE (09:41)
[2017-12-20] MEDS ORDERED: BUPIVACAIN-EPI 0.25%-1:200,000 30 ML VIAL SQ ONE (10:10)
[2017-12-20] MEDS ORDERED: LACTATED RINGERS 1,000 ML IV ONE (10:50)
[2017-12-20] MEDS ORDERED: NALOXONE 0.4 MG/ML 1 ML VIAL IV PRN (11:29)
[2017-12-20] MEDS: HYDROmorphone 0.5 MG/0.5 ML SYRINGE IVP PRN ×2 (11:46→12:24)
--- NOTE | 2017-12-20 11:51 | P.OP ---
Date of Procedure: 12/20/17 Description of Procedure: DESCRIPTION OF PROCEDURE(S): SURGEON: EDWARD JOHNSON MD PREOPERATIVE DIAGNOSES: 1. Gastroesophageal reflux disease. 2. Paraesophageal hiatal hernia, midline. 3. Morbid obesity due to excess calories, BMI 40.8 4. Multiple food ALLERGIES 5. Right upper quadrant abdominal pain 6. Fatty food intolerance 7. Fatty liver disease POSTOPERATIVE DIAGNOSES: 1. Gastroesophageal reflux disease. 2. Paraesophageal hiatal hernia, midline, incarcerated, 4 cm 3. Morbid obesity due to excess calories, BMI 40.8 4. Multiple food ALLERGIES 5. Right upper quadrant abdominal pain 6. Fatty food intolerance 7. Fatty liver disease OPERATION: 1. Robotic-assisted da Alireza Xi laparoscopic reduction and repair of incarcerated paraesophageal hiatal hernia, 4 x 4 cm, with [place] Biopatch A 8 x 8 cm. 2. Intraoperative esophagogastroduodenoscopy ANESTHESIA: General with local anesthetic. ESTIMATED BLOOD LOSS: 5 mL SPECIMENS REMOVED: None. COMPLICATIONS: None. FINDINGS: 1. Incarcerated upper pole of the stomach 2. 4 cm paraesophageal incarcerated diaphragmatic hiatal hernia 3. [place] Biopatch A onlay mesh placed. INDICATIONS: The patient is a 47-year-old male who presents with regurgitation, gastroesophageal reflux disease poorly controlled despite medications, and a symptomatic diaphragmatic hiatal hernia. Preoperative workup including upper endoscopy demonstrated a Hill grade 4 lower esophageal valve. He completed an esophageal manometry. Given the severity of his symptoms, he had elected for surgical intervention. Benefits and risks including bleeding, infection, recurrence, dysphagia, injury to the lung, need for further surgery was described at length. Informed consent was obtained. DESCRIPTION: The patient was brought into the operating room and placed in supine position. Preoperatively he had received Lovenox subcutaneously for DVT prophylaxis. After general induction, the abdomen was prepped and draped in standard sterile fashion. The patient had previously voided prior to coming to the operating room. Ioban draping was placed along the abdomen. A timeout protocol was confirmed with the surgical team, for which the patient's name, procedure to be performed including DVT prophylaxis with bilateral SCDs, and preoperative antibiotics were also confirmed. A robotic da Alireza Xi system was prepped and primed. At 15 cm from the xiphoid to just below the umbilicus, proposed port sites were marked with indelible marker along the left axillary line, left mid-clavicular line with each ports were marked 10 cm from each other. A 5 mm 0 degrees laparoscopic trocar entry was performed along the left upper quadrant. The abdomen was insufflated to 15 mmHg pressure he tolerated well. Diagnostic laparoscopy demonstrated no injury to bowel, viscera, or mesentery. The liver surface was remarkable for fatty liver disease. No injury had occurred to the small bowel or viscera. Next, one 8 mm robotic port was placed along the right upper abdomen. An 8-mm port was were placed along the left lateral abdominal wall. The camera 8-mm port was maintained along the epigastrium via the hernia defect. Another 12 mm port was placed along the left upper abdominal wall after exchanging the 5 mm port. Please note that the ports were placed at least 20 cm away from the target anatomy. Care was taken to check that each robotic arm were safely away from collision with the bed or the patient. At the epigastrium, a median sized Priya liver retractor was placed under direct visualization with the Iron Bog Worker placed under the right shoulder of the patient. All robotic arms were used. The patient was repositioned in reverse Trendelenburg position at 14-degrees after lowering the bed. The robot was docked above the left side of the patient. Using a grasper for arm 3, a grasper for arm 1, including vessel sealer for arm 2, the robotic system was docked and primed as described. Instruments were interchanged by the unit assistant. I had sat at the console. The gastrohepatic ligament was cleaved using a vessel sealer. Next, the phrenoesophageal ligament was mobilized and the distal esophagus was mobilized circumferentially with care of to the bilateral vagi nerves. The left and right crura was identified. An incarcerated midline hiatal hernia and sac was found incarcerated into the mediastinum. Circumferentially, the hernia sac was excised and brought into the peritoneal cavity. Care was taken to avoid any gastrotomy to the incarcerated upper pole of the stomach. The measured defect was consistent with 4 cm axial length and 4 cm in width. After dissection, the distal esophagus of 2 cm was brought into the abdominal cavity. Once the hiatus and crura was dissected, 2-0 VLOC suture was placed to reapproximate the diaphragmatic hiatus anteriorly. To buttress the repair, a [place] Biopatch A was prepared along the back table and cut in half of a arroyo-hole fashion as to reinforce the repair as an underlay. The mesh was placed along the crural repair and tagged using horizontal mattress sutures using 2-0 VLOC. I went to the head of the bed to perform intraoperative esophagogastroduodenoscopy. I went to the head of the bed to perform intraoperative esophagogastroduodenoscopy. An Olympus gastroscope was passed through posterior oropharynx. Erosive esophagitis LA grade C was confirmed. The stomach was entered. Retroflexion of the scope confirmed a Hill grade 2 lower esophageal valve. The stomach had been desufflated. No evidence of leaks were found either of the mucosal defects of the esophagus or stomach. This concluded the endoscopic portion of the case. The robot was undocked from the patient. I re-scrubbed into the case. All instruments and pneumoperitoneum were evacuated from the abdominal cavity. Incisions were reapproximated using 4-0 Monocryl in an interrupted subcuticular fashion. Liquid glue was applied to the skin. Local anesthetic was infiltrated in all wounds for postop analgesia. Multiple intra-abdominal films were obtained. At the end of the procedure, needle, sponge, and instrument count was verified correct by the surgical appliances salesperson. The patient had tolerated the procedure well and was taken to the postanesthesia unit in stable condition. Intraoperative films were reviewed with the patient's family who was pleased with the level of care. Console time 40 minutes
[2017-12-20] MEDS: HYDROmorphone 1 MG/ML 1 ML SYRINGE IVP PRN ×2 (13:39→21:15)
[2017-12-20] MEDS: SIMETHICONE 40 MG/0.6 ML DROPS 2,000 MG/30 ML BOTTLE PO SCH ×3 (14:02→23:50)
[2017-12-20] MEDS: HYOSCYAMINE ORAL DROPS 1.875 MG/15 ML BOTTLE PO SCH ×3 (14:02→23:50)
[2017-12-20] MEDS: ONDANSETRON 4 MG/2 ML VIAL IVP SCH ×2 (15:14→23:49)
[2017-12-20] MEDS: 0.9% NACL WITH KCL 20 MEQ/L 1,000 ML IV SCH ×2 (15:23→23:37)
[2017-12-20] MEDS: AMPICILLIN-SULBACTAM 3 GM in SODIUM CHLORIDE 0.9% 100 ML IVPB SCH ×2 (15:26→21:15)
--- NOTE | 2017-12-20 17:01 | FL ---
SINGLE CONTRAST UPPER GI EXAMINATION: CLINICAL HISTORY: 47-year-old male status post hiatal hernia repair for reflux. TECHNIQUE: Single contrast exam performed with 50 ml Isovue 370 contrast. Total fluoroscopy time: 1.04 minutes Total images: 13. FINDINGS: The patient swallowed oral contrast without difficulty or delay. Esophageal peristalsis and motility are within normal limits. There is satisfactory passage of contrast from the esophagus into the sto mach status post Maddy fundoplication. Some prominent retained fundal air is noted. There is no evid ence of contrast extravasation to suggest leak. No postsurgical free air. Five-minute post procedure radiograph shows satisfactory transit of contrast from the stomach into duodenum. IMPRESSION: No evidence of leak or significant obstruction status post Maddy fundoplication.
[2017-12-20 18:29] VITALS: BMI 40.8
[2017-12-21 01:58] VITALS: RESP 15; TEMP 97.9
[2017-12-21] MEDS: 0.9% NACL WITH KCL 20 MEQ/L 1,000 ML IV SCH (04:44)
[2017-12-21] MEDS: SIMETHICONE 40 MG/0.6 ML DROPS 2,000 MG/30 ML BOTTLE PO SCH ×2 (06:39→13:02)
[2017-12-21] MEDS: HYOSCYAMINE ORAL DROPS 1.875 MG/15 ML BOTTLE PO SCH ×2 (06:40→13:02)
[2017-12-21] MEDS: LACTATED RINGERS 1,000 ML IV SCH (07:28)
[2017-12-21 08:18] VITALS: BP 114/75; PULSE 50
[2017-12-21] MEDS ORDERED: PANTOPRAZOLE 40 MG/10 ML VIAL IV SCH (09:00)
[2017-12-21] MEDS ORDERED: ENOXAPARIN 40 MG/0.4 ML SYRINGE SQ SCH (09:00)
[2017-12-21 09:51] LABS: Anion Gap 7 mmol/L; Blood Urea Nitrogen 11 mg/dL (9-20); Calcium 9.8 mg/dL (8.4-10.2); Carbon Dioxide 26 mmol/L (22-30); Chloride 107 mmol/L (98-107); Magnesium 2.2 mg/dL (1.6-2.3); Phosphorus 3.6 mg/dL (2.5-4.5); Potassium 4.8 mmol/L (3.5-5.1); Sodium 140 mmol/L (137-145)
[2017-12-21] MEDS: ONDANSETRON 4 MG/2 ML VIAL IVP SCH (12:39)
--- NOTE | 2017-12-21 12:41 | P.DS ---
Providers Date of admission: 12/20/17 07:40 Expected date of discharge: 12/21/17 Attending physician: Ximena Caro Primary care physician: [facility] Course: 47-year-old male who has a long-standing history of morbid obesity. Underwent a recent upper endoscopic which showed hiatal hernia in which the patient has been symptomatic. Patient came in for repair of his hiatal hernia on December 20. No postop events noted on the day of discharge patient was up ambulatory on the surgical dressing sites dry abdomen soft nondistended on room air was felt to be appropriate to be discharged labs were noted and reviewed Impression discharge diagnosis Robotic-assisted da Alireza Xi laparoscopic reduction and repair of incarcerated paraesophageal hiatal hernia, 4 x 4 cm, with [place] Biopatch A 8 x 8 cm. . Intraoperative esophagogastroduodenoscopy done on December 20. Gastroesophageal reflux disease. 2. Paraesophageal hiatal hernia, midline, incarcerated, 4 cm 3. Morbid obesity due to excess calories, BMI 40.8 4. Multiple food ALLERGIES 5. Right upper quadrant abdominal pain 6. Fatty food intolerance 7. Fatty liver disease The above impression and plan of care have been discussed and directed by signing physician. Sandra Omer nurse practitioner acting as scribe for signing physician. Plan - Discharge Summary Discharge Rx Participant: Yes New Discharge Prescriptions: New Simethicone 40 mg/0.6 ml Drops [Mylicon Drops] 40 mg PO Q6HR 10 Days #24 ml Acetaminophen Tab [Tylenol Tab] 650 mg PO Q6H PRN #30 tablet PRN Reason: Mild Breakthrough Pain Continue Ranitidine HCl [Zantac] 75 mg PO DAILY Ferrous Sulfate [Iron (65 MG Elemental)] 325 mg PO BID Multivitamin [Men's Multi-Vitamin] 1 tab PO DAILY Discharge Medication List Ferrous Sulfate [Iron (65 MG Elemental)] 325 mg PO BID 12/08/17 [History] Multivitamin [Men's Multi-Vitamin] 1 tab PO DAILY 12/08/17 [History] Ranitidine HCl [Zantac] 75 mg PO DAILY 12/08/17 [History] Acetaminophen Tab [Tylenol Tab] 650 mg PO Q6H PRN #30 tablet 12/21/17 [Rx] Simethicone 40 mg/0.6 ml Drops [Mylicon Drops] 40 mg PO Q6HR 10 Days #24 ml 10/ 30/18 [Rx] Follow up Appointment(s)/Referral(s): Ximena Caro MD [STAFF PHYSICIAN] - 12/22/17 2:00 pm (bariatric center) Patient Instructions/Handouts: Laparoscopic Hiatal Hernia Repair (DC) Activity/Diet/Wound Care/Special Instructions: Follow-up in the bariatric clinic tomorrow with Dr. Romo Bariatric clear diet No tub bath for six weeks. Shower daily. No lifting over 10 pounds for the next 2 weeks. May use ice packs to surgical site. . do not remove the plastic surgical dressings Discharge Disposition: HOME SELF-CARE
== END 2017-12-21 13:41 | disposition home or self-care (01) | DRG 327 ==
LOC: 2ORMAIN 07:40 → 4SSUR 11:41
PROVIDERS: ADMIT Surgery Plastic and Reconstructive Surgery; ATTEND Surgery Plastic and Reconstructive Surgery
PROC: 8E0W0CZ Robotic Assisted Procedure of Trunk Region, Open Approach (ICD-10-PCS; principal; 2017-12-20 09:25)
PROC: 0DJ08ZZ Inspection of Upper Intestinal Tract, Via Natural or Artificial Opening Endoscopic (ICD-10-PCS; principal; 2017-12-20 09:25)
PROC: 0BUT0JZ Supplement Diaphragm with Synthetic Substitute, Open Approach (ICD-10-PCS; principal; 2017-12-20 09:25)
DX: K44.9 Diaphragmatic hernia without obstruction or gangrene (principal); K22.10 Ulcer of esophagus without bleeding; Z68.41 Body mass index [BMI] 40.0-44.9, adult; G47.33 Obstructive sleep apnea (adult) (pediatric); B96.81 Helicobacter pylori [H. pylori] as the cause of diseases classified elsewhere; E55.9 Vitamin D deficiency, unspecified; E61.1 Iron deficiency; E66.01 Morbid (severe) obesity due to excess calories; E78.1 Pure hyperglyceridemia; I11.9 Hypertensive heart disease without heart failure; K21.9 Gastro-esophageal reflux disease without esophagitis; K29.70 Gastritis, unspecified, without bleeding; K57.90 Diverticulosis of intestine, part unspecified, without perforation or abscess without bleeding; K76.0 Fatty (change of) liver, not elsewhere classified; M16.0 Bilateral primary osteoarthritis of hip; M17.0 Bilateral primary osteoarthritis of knee; M19.011 Primary osteoarthritis, right shoulder; M47.9 Spondylosis, unspecified; Z82.49 Family history of ischemic heart disease and other diseases of the circulatory system; Z83.3 Family history of diabetes mellitus; Z79.899 Other long term (current) drug therapy; Z88.8 Allergy status to other drugs, medicaments and biological substances; Z91.018 Allergy to other foods
CPT/HCPCS: 74240; 80051; 82310; 82565; 83735; 84100; 84520; 94760; 94762

== ENCOUNTER 2017-12-22 07:19 | Observation (INO) | payer BC ==
[2017-12-22] MEDS ORDERED: SODIUM CHLORIDE 0.9% 500 ML 500 ML IV STA (08:06)
[2017-12-22] MEDS ORDERED: ACETAMINOPHEN TAB 500 MG TAB PO STA (08:06)
[2017-12-22] MEDS ORDERED: SODIUM CHLORIDE 0.9% 1,000 ML IV STA ×3 (08:06→13:08)
[2017-12-22] MEDS ORDERED: MORPHINE SULFATE 4 MG/ML SYRINGE IV STA (08:06)
[2017-12-22 08:48] LABS: Basophils % (A) 0 %; Eosinophils # (A) 0.2 k/uL (0-0.7); Eosinophils % (A) 3 %; HCT 45.8 % (39.0-53.0); HGB 15.2 gm/dL (13.0-17.5); Lymphocytes # (A) 1.9 k/uL (1.0-4.8); Lymphocytes % (A) 27 %; MCH 31.7 pg (25.0-35.0); MCHC 33.2 g/dL (31.0-37.0); MCV 95.7 fL (80.0-100.0); Mean Platelet Volume 9.7; Monocytes # (A) 0.3 k/uL (0-1.0); Monocytes % (A) 4 %; Neutrophils # (A) 4.7 k/uL (1.3-7.7); Neutrophils % (A) 65 %; Platelet Count 181 k/uL (150-450); RBC 4.79 m/uL (4.30-5.90); RDW 13.3 % (11.5-15.5); WBC 7.3 k/uL (3.8-10.6)
[2017-12-22 09:03] LABS: Partial Thromboplastin Time 23.7 sec (22.0-30.0); Prothrombin Time 9.9 sec (9.0-12.0)
[2017-12-22 09:06] LABS: ALT 83 U/L (21-72); AST 76 U/L (17-59); Albumin 4.3 g/dL (3.5-5.0); Alkaline Phosphatase 69 U/L (38-126); Anion Gap 9 mmol/L; Blood Urea Nitrogen 11 mg/dL (9-20); Calcium 9.6 mg/dL (8.4-10.2); Carbon Dioxide 24 mmol/L (22-30); Chloride 107 mmol/L (98-107); Glucose 80 mg/dL (74-99); Magnesium 2.1 mg/dL (1.6-2.3); Phosphorus 2.6 mg/dL (2.5-4.5); Sodium 140 mmol/L (137-145); Total Protein 7.3 g/dL (6.3-8.2)
--- NOTE | 2017-12-22 09:08 | ED ---
Extremity Problem HPI - General Chief complaint: Extremity Problem,Nontraumatic Stated complaint: POST OP PAIN IN BOTH ARMS Time Seen by Provider: 12/22/17 07:26 Source: patient, RN notes reviewed, old records reviewed Mode of arrival: ambulatory Limitations: no limitations - History of Present Illness Initial comments: This is a 47-year-old male the ER for evaluation. Patient has complaints of bilateral upper extremity pain and swelling. Severe pain warmth and tenderness and swelling of upper extremities bilateral forearms. Patient did recently have gastric surgery was feeling better after the 1 lying in today to a (does not feel well as well as this morning woke up with severe arm pain. Denies other complaints no chest pain no headache or shortness breath no abdominal pain. No nausea vomiting no fevers MD Complaint: extremity pain (Bilateral upper extremity) -: hour(s) Location: left, right, upper extremity History of Same: No -: Yes myalgia Radiation: none Severity scale (1-10): 10 Quality: burning, aching, crushing Consistency: constant Improves with: nothing Worsens with: nothing Associated Symptoms: denies other symptoms - Related Data Home Medications Medication Instructions Recorded Confirmed Ferrous Sulfate [Iron (65 MG 325 mg PO BID 12/08/17 12/22/17 Elemental)] Multivitamin [Men's Multi-Vitamin] 1 tab PO DAILY 12/08/17 12/22/17 Ranitidine HCl [Zantac] 75 mg PO DAILY 12/08/17 12/22/17 Previous Rx's Medication Instructions Recorded Acetaminophen Tab [Tylenol Tab] 650 mg PO Q6H PRN #30 tablet 12/21/17 Simethicone 40 mg/0.6 ml Drops 40 mg PO Q6HR 10 Days #24 ml 12/21/17 [Mylicon Drops] Allergies Allergy/AdvReac Type Severity Reaction Status Date / Time corn Allergy Anaphylaxis Verified 12/22/17 08:00 lactose Allergy Diarrhea Verified 12/22/17 08:00 peas Allergy Anaphylaxis Verified 12/22/17 08:00 pollen extracts Allergy Rash/Hives Verified 12/22/17 08:00 Pork/Porcine Containing Allergy Nausea & Verified 12/22/17 08:00 Products Vomiting & Diarrhea Poultry Allergy Anaphylaxis Verified 12/22/17 08:00 tuna oil Allergy Anaphylaxis Verified 12/22/17 08:00 omeprazole AdvReac Severe "BONE PAIN" Verified 12/22/17 08:00 Review of Systems ROS Statement: Those systems with pertinent positive or pertinent negative responses have been documented in the HPI. ROS Other: All systems not noted in ROS Statement are negative. Past Medical History Past Medical History: GERD/Reflux, Hypertension, Osteoarthritis (OA), Sleep Apnea/CPAP/BIPAP Additional Past Medical History / Comment(s): Hx of H-pylori dx x2, CPAP machiene, hiatel hernia History of Any Multi-Drug Resistant Organisms: None Reported Past Surgical History: Tonsillectomy Additional Past Surgical History / Comment(s): rhinoplasty x2 for deviated septum and injury to nose, vasectomy, hiatel hernia surgery Additional Past Anesthesia/Blood Transfusion Reaction / Comment(s): Difficulty waking up Past Psychological History: No Psychological Hx Reported Smoking Status: Never smoker Past Alcohol Use History: Rare Past Drug Use History: None Reported - Past Family History Mother Family Medical History: No Reported History Father Family Medical History: Diabetes Mellitus, Hypertension Additional Family Medical History / Comment(s): Type 2 DM, Brother(s) Family Medical History: Pulmonary Embolus Additional Family Medical History / Comment(s): caused General Exam Limitations: no limitations General appearance: alert, in no apparent distress Head exam: Present: atraumatic, normocephalic, normal inspection Eye exam: Present: normal appearance, PERRL, EOMI. Absent: scleral icterus, conjunctival injection, periorbital swelling ENT exam: Present: normal exam, mucous membranes moist Neck exam: Present: normal inspection. Absent: tenderness, meningismus, lymphadenopathy Respiratory exam: Present: normal lung sounds bilaterally. Absent: respiratory distress, wheezes, rales, rhonchi, stridor Cardiovascular Exam: Present: regular rate, normal rhythm, normal heart sounds. Absent: systolic murmur, diastolic murmur, rubs, gallop, clicks GI/Abdominal exam: Present: soft, normal bowel sounds. Absent: distended, tenderness, guarding, rebound, rigid Extremities exam: Present: normal inspection, full ROM, normal capillary refill. Absent: tenderness, pedal edema, joint swelling, calf tenderness Back exam: Present: normal inspection Neurological exam: Present: alert, oriented X3, CN II-XII intact Psychiatric exam: Present: normal affect, normal mood Skin exam: Present: warm, dry, intact, normal color. Absent: rash Course Vital Signs 12/22/17 12/22/17 12/22/17 07:23 07:58 11:40 Temperature 98.2 F Pulse Rate 85 61 Respiratory 20 18 Rate Blood Pressure 125/82 139/75 O2 Sat by Pulse 99 99 Oximetry 12/22/17 13:25 Temperature 98.6 F Pulse Rate 59 L Respiratory 16 Rate Blood Pressure 131/74 O2 Sat by Pulse 98 Oximetry - Reevaluation(s) Reevaluation #1: 12/22/17 13:35 Medical record is reviewed 12/22/17 13:[address] Romo who will see patient in emergency room Medical Decision Making - Medical Decision Making 47 male the ER for evaluation patient does say for evaluation regards to bilateral upper Shorty pain secondary to postoperative course. Will admit for pain control - Lab Data Result diagrams: 12/22/17 08:26 12/22/17 08:26 Lab Results 12/22/17 12/22/17 12/22/17 Range/Units 08:26 08:26 08:26 WBC 7.3 (3.8-10.6) k/uL RBC 4.79 (4.30-5.90) m/uL Hgb 15.2 (13.0-17.5) gm/dL Hct 45.8 (39.0-53.0) % MCV 95.7 (80.0-100.0) fL MCH 31.7 (25.0-35.0) pg MCHC 33.2 (31.0-37.0) g/dL RDW 13.3 (11.5-15.5) % Plt Count 181 (150-450) k/uL Neutrophils % 65 % Lymphocytes % 27 % Monocytes % 4 % Eosinophils % 3 % Basophils % 0 % Neutrophils # 4.7 (1.3-7.7) k/uL Lymphocytes # 1.9 (1.0-4.8) k/uL Monocytes # 0.3 (0-1.0) k/uL Eosinophils # 0.2 (0-0.7) k/uL Basophils # 0.0 (0-0.2) k/uL PT (9.0-12.0) sec INR (<1.2) APTT (22.0-30.0) sec D-Dimer (<0.60) mg/L FEU Sodium 140 (137-145) mmol/L Potassium 4.0 (3.5-5.1) mmol/L Chloride 107 (98-107) mmol/L Carbon Dioxide 24 (22-30) mmol/L Anion Gap 9 mmol/L BUN 11 (9-20) mg/dL Creatinine 0.74 (0.66-1.25) mg/dL Est GFR (CKD-EPI)AfAm >90 (>60 ml/min/1.73 sqM) Est GFR (CKD-EPI)NonAf >90 (>60 ml/min/1.73 sqM) Glucose 80 (74-99) mg/dL Plasma Lactic Acid Khai (0.7-2.0) mmol/L Calcium 9.6 (8.4-10.2) mg/dL Phosphorus 2.6 (2.5-4.5) mg/dL Magnesium 2.1 (1.6-2.3) mg/dL Total Bilirubin 1.0 (0.2-1.3) mg/dL AST 76 H (17-59) U/L ALT 83 H (21-72) U/L Alkaline Phosphatase 69 (38-126) U/L Total Creatine Kinase 102 (55-170) U/L CK-MB (CK-2) 0.7 (0.0-2.4) ng/mL CK-MB (CK-2) Rel Index 0.7 Troponin I <0.012 (0.000-0.034) ng/mL Total Protein 7.3 (6.3-8.2) g/dL Albumin 4.3 (3.5-5.0) g/dL 12/22/17 12/22/17 Range/Units 08:26 08:26 WBC (3.8-10.6) k/uL RBC (4.30-5.90) m/uL Hgb (13.0-17.5) gm/dL Hct (39.0-53.0) % MCV (80.0-100.0) fL MCH (25.0-35.0) pg MCHC (31.0-37.0) g/dL RDW (11.5-15.5) % Plt Count (150-450) k/uL Neutrophils % % Lymphocytes % % Monocytes % % Eosinophils % % Basophils % % Neutrophils # (1.3-7.7) k/uL Lymphocytes # (1.0-4.8) k/uL Monocytes # (0-1.0) k/uL Eosinophils # (0-0.7) k/uL Basophils # (0-0.2) k/uL PT 9.9 (9.0-12.0) sec INR 1.0 (<1.2) APTT 23.7 (22.0-30.0) sec D-Dimer 0.82 H (<0.60) mg/L FEU Sodium (137-145) mmol/L Potassium (3.5-5.1) mmol/L Chloride (98-107) mmol/L Carbon Dioxide (22-30) mmol/L Anion Gap mmol/L BUN (9-20) mg/dL Creatinine (0.66-1.25) mg/dL Est GFR (CKD-EPI)AfAm (>60 ml/min/1.73 sqM) Est GFR (CKD-EPI)NonAf (>60 ml/min/1.73 sqM) Glucose (74-99) mg/dL Plasma Lactic Acid Khai 1.1 (0.7-2.0) mmol/L Calcium (8.4-10.2) mg/dL Phosphorus (2.5-4.5) mg/dL Magnesium (1.6-2.3) mg/dL Total Bilirubin (0.2-1.3) mg/dL AST (17-59) U/L ALT (21-72) U/L Alkaline Phosphatase (38-126) U/L Total Creatine Kinase (55-170) U/L CK-MB (CK-2) (0.0-2.4) ng/mL CK-MB (CK-2) Rel Index Troponin I (0.000-0.034) ng/mL Total Protein (6.3-8.2) g/dL Albumin (3.5-5.0) g/dL - EKG Data -: EKG Interpreted by Me (EKG shows normal sinus rhythm rate of 89, MI 152, QRS 78, QTc 447) EKG shows normal: sinus rhythm Rate: normal - Radiology Data Radiology results: report reviewed (Bilateral upper Shorty ultrasound negative for DVT), image reviewed Disposition Clinical Impression: Bilateral arm pain Disposition: ADMITTED IP TO THIS [facility] Condition: Good Is patient prescribed a controlled substance at d/c from ED?: No
[2017-12-22 09:09] LABS: Creatine Kinase 102 U/L (55-170)
[2017-12-22 09:23] LABS: Creatine Kinase MB 0.7 ng/mL (0.0-2.4); Troponin I <0.012 ng/mL (0.000-0.034)
[2017-12-22 09:50] LABS: D-Dimer 0.82 mg/L FEU (<0.60)
--- NOTE | 2017-12-22 09:58 | US ---
EXAMINATION TYPE: US venous doppler duplex UE DATE OF EXAM: 12/22/2017 COMPARISON: NONE CLINICAL HISTORY: Pain. SIDE PERFORMED: Bilateral Patient of large body habitus, technically difficult exam. Right Arm: Negative for DVT Left Arm: Negative for DVT Grayscale, color doppler, spectral doppler imaging performed of the deep veins of the upper extremiti es. There is normal flow, compressability and vascular waveforms. IMPRESSION: No evidence for DVT at this time.
[2017-12-22] MEDS ORDERED: MORPHINE SULFATE 4 MG/ML SYRINGE IVP STA (10:48)
[2017-12-22] MEDS ORDERED: HYDROmorphone 1 MG/ML 1 ML SYRINGE IVP PRN (13:11)
[2017-12-22] MEDS ORDERED: ONDANSETRON 4 MG/2 ML VIAL IVP PRN (13:11)
--- NOTE | 2017-12-22 13:25 | P.PN ---
Subjective Progress Note Date: 12/22/17 HPI: Patient presents with extremity pain, bilateral. Since observation, pain is improved. Anticipated discharge which anti-inflammatories Objective - Vital Signs Vital signs: Vital Signs Temp 98.2 F 12/22/17 07:23 Pulse 61 12/22/17 11:40 Resp 18 12/22/17 11:40 BP 139/75 12/22/17 11:40 Pulse Ox 99 12/22/17 11:40 Intake & Output 12/21/17 12/22/17 12/22/17 18:59 06:59 18:59 Weight 125.191 kg - Labs CBC & Chem 7: 12/22/17 08:26 12/22/17 08:26 Labs: Abnormal Lab Results - Last 24 Hours (Table) 12/22/17 12/22/17 Range/Units 08:26 08:26 D-Dimer 0.82 H (<0.60) mg/L FEU AST 76 H (17-59) U/L ALT 83 H (21-72) U/L
[2017-12-22] MEDS: KETOROLAC 30 MG/ML 1 ML VIAL IVP SCH ×2 (15:16→18:05)
[2017-12-22 15:40] VITALS: BP 133/77; PULSE 63; RESP 24; TEMP 98.3
[2017-12-22] MEDS ORDERED: HYDROcodone/APAP 7.5-325MG 1 EACH TAB PO SCH (18:30)
--- NOTE | 2017-12-22 21:31 | P.GSHP ---
History of Present Illness H&P Date: 12/22/17 REASON FOR HOSPITALIZATION: Bilateral forearm pain HISTORY OF PRESENT ILLNESS: The patient is a 47-year-old gentleman status post hiatal hernia repair 2 days ago. He was discharged home yesterday without sequelae. He reports waking up this morning with intense burning pain along the bilateral forearms and inability to move his arms from his elbow to his hands. Reports that his bilateral hands are cold. He has a family history of DVTs where his brother of pulmonary embolism. He presented to the emergency room secondary to his pain and concern for probable DVT. He reports his pain is throbbing into the bone and moderate to intense 10 out of 10. He denies any trouble with swallowing. He denies any moderate abdominal pain. Denies any discomfort from his recent surgery. PAST MEDICAL HISTORY: See list PAST SURGICAL HISTORY: See list HOME MEDICATIONS: See list ALLERGIES: See list SOCIAL HISTORY: No active tobacco use. FAMILY HISTORY: See list REVIEW OF ORGAN SYSTEMS: CONSTITUTIONAL: Highest weight of 322 pounds. Moderate loss of over 30+ pounds. No fevers or chills. HEENT: Denies any active troubles with vision or hearing. No troubles with swallowing. ENDOCRINE: No diabetes. No hypothyroidism. CARDIOVASCULAR: No reports of palpitations or heart attacks or chest pain. RESPIRATORY: Has daytime somnolence. No asthma. GI: Denies any bright red blood per rectum. No diarrhea or constipation. MUSCULOSKELETAL: Has lower back pain and joint pain. History of upper extremity edema. NEURO: No headaches. No seizure disorders. PSYCH: No depression or suicidal ideation. RHEUMATOLOGIC: No lupus. No rheumatoid arthritis. HEMATOLOGIC: Denies any abnormal bleeding or bruising. No personal history of DVTs. SKIN: No rash. No skin cancer. PHYSICAL EXAM: GENERAL: Well-developed in no acute distress. HEENT: No scleral icterus. Extraocular movements grossly intact. Hears conversational speech. No nasal drainage. NECK: Supple without lymphadenopathy. CHEST: Nonlabored respirations with equal bilateral excursions. CARDIOVASCULAR: Regular rate and regular rhythm. Distal 2+ pulses. ABDOMEN: Obese, soft, nontender, nondistended. MUSCULOSKELETAL: No clubbing, cyanosis. Moving bilateral upper arms intact. Temperature difference of cold bilateral hands however warm bilateral arms. Warm compress on hands. Bilateral arms elevated. NEURO: No focal or lateralizing signs. Cranial nerves 2 through 12 grossly within normal limits. PSYCH: Appropriate affect. Alert and oriented to person, place and time. SKIN: Good skin turgor. Well perfused. STUDIES: Ultrasound bilateral extremities demonstrating complete blood flow without DVT LABS: CPK troponins within normal limits. Electrolytes within normal limits. WBC within normal limits. ASSESSMENT: 1. Bilateral upper extremity pain of unclear etiology. 2. Personal history of multiple drug or food ALLERGIES. 3. Status post hiatal hernia repair 4. History of gastroesophageal reflux disease 5. Morbid obesity due to excess calories, BMI 40.8 6. Reflex sympathetic dystrophy pain variation of bilateral arms PLAN: 1. His pain is severe and as a result recommend observation. 2. IV fluid hydration with elevation of bilateral arms 3. Continue warm compress bilateral hand 4. Consultation to neurology for weakness new onset bilateral arms 5. Toradol for anti-inflammatory 6. Pain control with Dilaudid 7. Bariatric clear liquid diet 8. All studies negative for DVTs Past Medical History Past Medical History: GERD/Reflux, Hypertension, Osteoarthritis (OA), Sleep Apnea/CPAP/BIPAP Additional Past Medical History / Comment(s): Hiatal hernia with recent surgery , HTN but not since wt loss, arthritis bilateral knees, hips, ankles, low back and R shoulder, CRISTELA with Cpap, Hpylori x2, iron deficienct, vitamin D deficiency , sinus problems in the past, mutliple food allergies. History of Any Multi-Drug Resistant Organisms: None Reported Past Surgical History: Tonsillectomy Additional Past Surgical History / Comment(s): 12/20/17 Maddy Fudoplication, EGD, septoplasty/sinuplasty, deviated septum surgery, vasectomy, circumcism Additional Past Anesthesia/Blood Transfusion Reaction / Comment(s): Difficulty waking up Smoking Status: Never smoker - Past Family History Mother Family Medical History: No Reported History Father Family Medical History: Diabetes Mellitus, Hypertension Additional Family Medical History / Comment(s): Type 2 DM, Brother(s) Family Medical History: Pulmonary Embolus Additional Family Medical History / Comment(s): PE caused Medications and Allergies Home Medications Medication Instructions Recorded Confirmed Type Ferrous Sulfate [Iron (65 MG 325 mg PO BID 12/08/17 12/22/17 History Elemental)] Multivitamin [Men's Multi-Vitamin] 1 tab PO DAILY 12/08/17 12/22/17 History Ranitidine HCl [Zantac] 75 mg PO DAILY 12/08/17 12/22/17 History Acetaminophen Tab [Tylenol Tab] 650 mg PO Q6H PRN #30 tablet 12/21/17 12/22/17 Rx Simethicone 40 mg/0.6 ml Drops 40 mg PO Q6HR 10 Days #24 ml 12/21/17 12/22/17 Rx [Mylicon Drops] HYDROcodone/APAP 5-325MG [[place] 1 tab PO Q4HR PRN 3 Days #18 tab 12/22/17 Rx 5-325] Ibuprofen [Motrin] 600 mg PO Q8HR PRN #30 tab 12/22/17 Rx Allergies Allergy/AdvReac Type Severity Reaction Status Date / Time corn Allergy Anaphylaxis Verified 12/22/17 08:00 lactose Allergy Diarrhea Verified 12/22/17 08:00 peas Allergy Anaphylaxis Verified 12/22/17 08:00 pollen extracts Allergy Rash/Hives Verified 12/22/17 08:00 Pork/Porcine Containing Allergy Nausea & Verified 12/22/17 08:00 Products Vomiting & Diarrhea Poultry Allergy Anaphylaxis Verified 12/22/17 08:00 tuna oil Allergy Anaphylaxis Verified 12/22/17 08:00 omeprazole AdvReac Severe "BONE PAIN" Verified 12/22/17 08:00 Surgical - Exam Vital Signs Temp Pulse Resp Pulse Ox 98.2 F 85 20 99 12/22/17 07:23 12/22/17 07:23 12/22/17 07:23 12/22/17 07:23 Results - Labs 12/22/17 08:26 12/22/17 08:26 Abnormal Lab Results - Last 24 Hours (Table) 12/22/17 12/22/17 Range/Units 08:26 08:26 D-Dimer 0.82 H (<0.60) mg/L FEU AST 76 H (17-59) U/L ALT 83 H (21-72) U/L Diabetes panel 12/22/17 Range/Units 08:26 Sodium 140 (137-145) mmol/L Potassium 4.0 (3.5-5.1) mmol/L Chloride 107 (98-107) mmol/L Carbon Dioxide 24 (22-30) mmol/L BUN 11 (9-20) mg/dL Creatinine 0.74 (0.66-1.25) mg/dL Glucose 80 (74-99) mg/dL Calcium 9.6 (8.4-10.2) mg/dL AST 76 H (17-59) U/L ALT 83 H (21-72) U/L Alkaline Phosphatase 69 (38-126) U/L Total Protein 7.3 (6.3-8.2) g/dL Albumin 4.3 (3.5-5.0) g/dL Calcium panel 12/22/17 Range/Units 08:26 Calcium 9.6 (8.4-10.2) mg/dL Phosphorus 2.6 (2.5-4.5) mg/dL Albumin 4.3 (3.5-5.0) g/dL Pituitary panel 12/22/17 Range/Units 08:26 Sodium 140 (137-145) mmol/L Potassium 4.0 (3.5-5.1) mmol/L Chloride 107 (98-107) mmol/L Carbon Dioxide 24 (22-30) mmol/L BUN 11 (9-20) mg/dL Creatinine 0.74 (0.66-1.25) mg/dL Glucose 80 (74-99) mg/dL Calcium 9.6 (8.4-10.2) mg/dL Adrenal panel 12/22/17 Range/Units 08:26 Sodium 140 (137-145) mmol/L Potassium 4.0 (3.5-5.1) mmol/L Chloride 107 (98-107) mmol/L Carbon Dioxide 24 (22-30) mmol/L BUN 11 (9-20) mg/dL Creatinine 0.74 (0.66-1.25) mg/dL Glucose 80 (74-99) mg/dL Calcium 9.6 (8.4-10.2) mg/dL Total Bilirubin 1.0 (0.2-1.3) mg/dL AST 76 H (17-59) U/L ALT 83 H (21-72) U/L Alkaline Phosphatase 69 (38-126) U/L Total Protein 7.3 (6.3-8.2) g/dL Albumin 4.3 (3.5-5.0) g/dL - Imaging Comments: Bilateral Extremities reviewed Assessment and Plan (1) Reflex sympathetic dystrophy of both upper extremities Status: Acute Code(s): G90.513 - COMPLEX REGIONAL PAIN SYNDROME I OF UPPER LIMB, BILATERAL SNOMED Code(s): 053509736735182 (2) Morbid obesity due to excess calories Status: Acute Code(s): E66.01 - MORBID (SEVERE) OBESITY DUE TO EXCESS CALORIES SNOMED Code(s): 242085505 (3) Gastroesophageal reflux disease Status: Acute Code(s): K21.9 - GASTRO-ESOPHAGEAL REFLUX DISEASE WITHOUT ESOPHAGITIS SNOMED Code(s): 566354182 (4) Multiple environmental allergies Status: Acute Code(s): Z91.09 - OTH ALLERGY STATUS, OTH THAN TO DRUGS AND BIOLG SUBSTANCES SNOMED Code(s): 734776113 (5) Multiple drug allergies Status: Acute Code(s): Z88.9 - ALLERGY STATUS TO UNSP DRUG/MEDS/BIOL SUBST STATUS SNOMED Code(s): 500406741 (6) Multiple food allergies Status: Acute Code(s): Z91.018 - ALLERGY TO OTHER FOODS SNOMED Code(s): 513141002
--- NOTE | 2017-12-22 21:45 | P.DS ---
Providers Date of admission: 12/22/17 13:06 Expected date of discharge: 12/22/17 Attending physician: Ximena Caro Consults: 12/22/17 13:10 Consult Physician Urgent Consulting Provider: Tanay Watters Consult Reason/Comments: Bilateral arm weakness Do you want consulting provider notified?: Yes Primary care physician: Mekhi Tam - Discharge Diagnosis(es) (1) Multiple drug allergies Status: Acute (2) Multiple environmental allergies Status: Acute (3) Multiple food allergies Status: Acute (4) Reflex sympathetic dystrophy of both upper extremities Status: Acute Hospital Course: The patient is a 47-year-old gentleman who was brought in for observation secondary to severe bilateral upper arm pain and forearm pain with unclear etiology. He was treated with IV fluid hydration including IV Toradol and pain medication. Was tolerating diet. After adequate hydration, his bilateral upper arm pain had improved and resolved. All labs and studies were otherwise unremarkable for DVTs. Pertinent Studies: US bilateral upper extremity negative for DVTs Patient Condition at Discharge: Good Plan - Discharge Summary Discharge Rx Participant: No New Discharge Prescriptions: New HYDROcodone/APAP 5-325MG [[place] 5-325] 1 tab PO Q4HR PRN 3 Days #18 tab PRN Reason: Pain Ibuprofen [Motrin] 600 mg PO Q8HR PRN #30 tab PRN Reason: Pain No Action Ranitidine HCl [Zantac] 75 mg PO DAILY Ferrous Sulfate [Iron (65 MG Elemental)] 325 mg PO BID Multivitamin [Men's Multi-Vitamin] 1 tab PO DAILY Simethicone 40 mg/0.6 ml Drops [Mylicon Drops] 40 mg PO Q6HR 10 Days #24 ml Acetaminophen Tab [Tylenol Tab] 650 mg PO Q6H PRN #30 tablet PRN Reason: Mild Breakthrough Pain Discharge Medication List Ferrous Sulfate [Iron (65 MG Elemental)] 325 mg PO BID 12/08/17 [History] Multivitamin [Men's Multi-Vitamin] 1 tab PO DAILY 12/08/17 [History] Ranitidine HCl [Zantac] 75 mg PO DAILY 12/08/17 [History] Acetaminophen Tab [Tylenol Tab] 650 mg PO Q6H PRN #30 tablet 12/21/17 [Rx] Simethicone 40 mg/0.6 ml Drops [Mylicon Drops] 40 mg PO Q6HR 10 Days #24 ml [Rx] HYDROcodone/APAP 5-325MG [[place] 5-325] 1 tab PO Q4HR PRN 3 Days #18 tab [Rx] Ibuprofen [Motrin] 600 mg PO Q8HR PRN #30 tab 12/22/17 [Rx] Follow up Appointment(s)/Referral(s): Negro Tam MD [Primary Care Provider] - 1-2 days [facility] [NON-STAFF] - 12/27/17 Patient Instructions/Handouts: Gastroesophageal Reflux Disease (DC) Discharge Disposition: HOME SELF-CARE
== END 2017-12-22 19:47 | disposition home or self-care (01) ==
LOC: EC 07:19 → 4SSUR 13:06
PROVIDERS: ADMIT Surgery Plastic and Reconstructive Surgery; ATTEND Surgery Plastic and Reconstructive Surgery
DX: G90.513 Complex regional pain syndrome I of upper limb, bilateral (principal); E66.01 Morbid (severe) obesity due to excess calories; Z68.41 Body mass index [BMI] 40.0-44.9, adult; K21.0 Gastro-esophageal reflux disease with esophagitis; M17.0 Bilateral primary osteoarthritis of knee; M16.0 Bilateral primary osteoarthritis of hip; M19.072 Primary osteoarthritis, left ankle and foot; M19.071 Primary osteoarthritis, right ankle and foot; M47.9 Spondylosis, unspecified; M19.011 Primary osteoarthritis, right shoulder; E61.1 Iron deficiency; G47.33 Obstructive sleep apnea (adult) (pediatric); Z99.89 Dependence on other enabling machines and devices; Z88.9 Allergy status to unspecified drugs, medicaments and biological substances; Z79.899 Other long term (current) drug therapy; Z98.890 Other specified postprocedural states; Z86.19 Personal history of other infectious and parasitic diseases; Z83.3 Family history of diabetes mellitus; Z82.49 Family history of ischemic heart disease and other diseases of the circulatory system; Z83.2 Family history of diseases of the blood and blood-forming organs and certain disorders involving the immune mechanism; Z91.011 Allergy to milk products; Z88.8 Allergy status to other drugs, medicaments and biological substances; Z91.018 Allergy to other foods
CPT/HCPCS: 96376 ×2; 96375; 96361; 96374; 99285; 36415; 93005; 85379; 80053; 82550; 82553; 83605; 83735; 84100; 84484; 85025; 85610; 85730; 86140; 87040; 93970; G0378; J2270; J1885

== ENCOUNTER → 2017-12-29 | Outpatient (CLI) | payer BC ==
[2017-12-29 14:45] VITALS: BP 135/77; PULSE 84; RESP 16; TEMP 98.1; BMI 41.3
--- NOTE | 2017-12-29 15:13 | P.PN ---
Subjective Progress Note Date: 12/29/17 HPI: He denies any GERD following his hiatal hernia surgery. He had a rash from adhesive of surgical draping. He had arm pain from Protonix. He had to use benadryl. No infection at the left upper quadrant incision. He reports trouble from his gallbladder. ABDOMEN: Mild tenderness along the left upper quadrant to be expected. No seroma. ASSESSMENT: 1. Morbid obesity 2. S/p hiatal hernia. 3. Cholecystitis. PLAN: 1. He is eager to return to work. 2. Restriction of limited lifting of 4 pounds until January 17 3. Recommend cholecystectomy. Objective - Vital Signs Vital signs: Vital Signs Temp 98.1 F 12/29/17 14:41 Pulse 84 12/29/17 14:41 Resp 16 12/29/17 14:41 BP 135/77 12/29/17 14:41 Pulse Ox Intake & Output 12/28/17 12/29/17 12/29/17 18:59 06:59 18:59 Weight 126.099 kg
--- NOTE | 2017-12-29 15:15 | P.PN ---
Progress Note - Text Progress Note Date: 12/29/17 To whom it may concern: Joey Ward is under my surgical care. He may return to working with weight lifting restriction of 4 pounds until January 17. Regards, Ximena Caro MD, FACS, [facility]
--- NOTE | 2017-12-29 15:19 | P.PN ---
Progress Note - Text Progress Note Date: 12/29/17 To whom it may concern: Joey Ward is under my surgical care. He may return to working with weight lifting restriction of 4 pounds on Wednesday, January 03. He is on lifting restricitons until January 17. Regards, Ximena Caro MD, FACS, [facility]
== END | disposition home or self-care (01) ==
LOC: BARWHC3 14:27
PROVIDERS: ATTEND Surgery Plastic and Reconstructive Surgery
DX: Z48.815 Encounter for surgical aftercare following surgery on the digestive system (principal); E66.01 Morbid (severe) obesity due to excess calories; K81.9 Cholecystitis, unspecified; Z68.41 Body mass index [BMI] 40.0-44.9, adult; Z98.890 Other specified postprocedural states
CPT/HCPCS: 99211

== ENCOUNTER → 2018-02-02 | Outpatient (CLI) | payer BC ==
[2018-02-02 13:20] LABS: Basophils % (A) 0 %; Eosinophils # (A) 0.3 k/uL (0-0.7); Eosinophils % (A) 4 %; HCT 44.9 % (39.0-53.0); HGB 15.1 gm/dL (13.0-17.5); Lymphocytes % (A) 31 %; MCH 31.3 pg (25.0-35.0); MCHC 33.6 g/dL (31.0-37.0); MCV 93.1 fL (80.0-100.0); Mean Platelet Volume 7.8; Monocytes # (A) 0.4 k/uL (0-1.0); Monocytes % (A) 6 %; Neutrophils # (A) 3.7 k/uL (1.3-7.7); Neutrophils % (A) 57 %; Platelet Count 240 k/uL (150-450); RBC 4.82 m/uL (4.30-5.90); RDW 12.7 % (11.5-15.5); WBC 6.5 k/uL (3.8-10.6)
[2018-02-02 13:25] LABS: ALT 32 U/L (21-72); AST 27 U/L (17-59); Albumin 4.3 g/dL (3.5-5.0); Alkaline Phosphatase 74 U/L (38-126); Anion Gap 9 mmol/L; Blood Urea Nitrogen 16 mg/dL (9-20); Calcium 9.8 mg/dL (8.4-10.2); Carbon Dioxide 24 mmol/L (22-30); Chloride 106 mmol/L (98-107); Glucose 93 mg/dL (74-99); Sodium 139 mmol/L (137-145); Total Bilirubin 0.5 mg/dL (0.2-1.3); Total Protein 7.2 g/dL (6.3-8.2)
== END | disposition home or self-care (01) ==
LOC: LABPAT 12:31
PROVIDERS: ATTEND Surgery Plastic and Reconstructive Surgery
DX: Z01.812 Encounter for preprocedural laboratory examination (principal)
CPT/HCPCS: 36415; 80053; 85025

== ENCOUNTER 2018-02-07 06:04 | Day surgery (SDC) | payer BC ==
[2018-02-03 16:12] VITALS: BMI 40.3
--- NOTE | 2018-02-06 17:15 | P.GSHP ---
History of Present Illness H&P Date: 02/07/18 CHIEF COMPLAINT: Cholecystitis HISTORY OF PRESENT ILLNESS: The patient is a 47-year-old male who presents with history of epigastric including right upper quadrant abdominal pain. He underwent diagnostic studies for the gallbladder. Separately his clinical picture was consistent with cholecystitis. Now he presents for surgical intervention. PAST MEDICAL HISTORY: Please see list PAST SURGICAL HISTORY: Please see list MEDICATIONS: Please see list ALLERGIES: Denies. SOCIAL HISTORY: No illicit drug use or recent tobacco use FAMILY HISTORY: Pertinent for gallbladder disease REVIEW OF ORGAN SYSTEMS: CONSTITUTIONAL: No reports of fevers or chills. HEENT: Denies any troubles with the vision or hearing. ENDOCRINE: No reports of hypothyroidism. No diabetes. RESPIRATORY: No recent pneumonias. CARDIOVASCULAR: Denies chest pain or palpitations GI: No blood in stools or constipation. MUSCULOSKELETAL: Has occasional joint pain including back pain. NEURO: No seizure disorders or headaches. No recent stroke. PSYCH: No depression or suicidal ideation. HEMATOLOGIC: No personal or family history of DVTs or pulmonary emboli. PHYSICAL EXAM: VITAL SIGNS: Afebrile vital signs stable GENERAL: Well-developed pleasant male in no acute distress. HEENT: No scleral icterus. Extraocular movements grossly intact. Moist buccal mucosa. NECK: Supple without lymphadenopathy. CHEST: Unlabored respirations. Equal bilateral excursions. CARDIOVASCULAR: Regular rate regular rhythm rhythm. Distal 2+ pulses. ABDOMEN: Soft, nondistended. Tender along the epigastrium and right upper quadrant. MUSCULOSKELETAL: No clubbing, cyanosis, or edema. NEURO : No focal or lateralizing signs. Cranial nerves II-12 within normal limits. PSYCH: Alert and oriented to person, place and time. SKIN: Well perfused. Good skin turgor. ASSESSMENT: 1. Epigastric and right upper quadrant abdominal pain 2. Chronic cholecystitis PLAN: 1. Will need a robotic cholecystectomy possible open. Benefits and risks were described. 2. Heparin for DVT prophylaxis 5000 units. 3. Antibiotic prophylaxis. Past Medical History Past Medical History: GERD/Reflux, Hypertension, Musculoskeletal Disorder, Osteoarthritis (OA), Sleep Apnea/CPAP/BIPAP Additional Past Medical History / Comment(s): Hx of H-pylori dx x2, uses CPAP prn, chronic back pain, no longer needs BP medication since weight loss History of Any Multi-Drug Resistant Organisms: None Reported Past Surgical History: Tonsillectomy Additional Past Surgical History / Comment(s): rhinoplasty x2 for deviated septum and injury to nose, vasectomy, Maddy fundoplasty 2017 Past Anesthesia/Blood Transfusion Reactions: Previous Problems w/ Anesthesia Additional Past Anesthesia/Blood Transfusion Reaction / Comment(s): Difficulty waking up @times Smoking Status: Never smoker - Past Family History Mother Family Medical History: No Reported History Father Family Medical History: Diabetes Mellitus, Hypertension Additional Family Medical History / Comment(s): Type 2 DM, Brother(s) Family Medical History: Pulmonary Embolus Additional Family Medical History / Comment(s): developed after surgery, had stroke also & Medications and Allergies Home Medications Medication Instructions Recorded Confirmed Type No Known Home Medications 02/03/18 02/03/18 History Allergies Allergy/AdvReac Type Severity Reaction Status Date / Time corn Allergy Anaphylaxis Verified 02/03/18 16:09 lactose Allergy Diarrhea Verified 02/03/18 16:09 peas Allergy Anaphylaxis Verified 02/03/18 16:09 pollen extracts Allergy Rash/Hives Verified 02/03/18 16:09 Pork/Porcine Containing Allergy Nausea & Verified 02/03/18 16:09 Products Vomiting & Diarrhea Poultry Allergy Anaphylaxis Verified 02/03/18 16:09 tuna oil Allergy Anaphylaxis Verified 02/03/18 16:09 omeprazole AdvReac Severe "BONE PAIN" Verified 02/03/18 16:09 pantoprazole [From Protonix] AdvReac Severe forearms Verified 02/03/18 16:09 swollen & red,warm adhesive AdvReac Rash/Hives Verified 02/03/18 16:10
[~2018-02-07 06:04] MED LIST changes: -ACETAMINOPHEN IV (For NPO) 1,000 MG in EMPTY BAG 1 BAG IVPB ONE; -CHLORHEXIDINE GLUCONATE 15 ML CUP MUCOUS MEM ONE; +INDOCYANINE GREEN 25 MG VIAL IV STA; +LACTATED RINGERS 1,000 ML IV SCH; +ceFAZolin 3 GM in SODIUM CHLORIDE 0.9% 100 ML IVPB ONE
[2018-02-07] MEDS ORDERED: LIDOCAINE 1% 20 ML VIAL (10MG/ML) FOR IV START INTRADERMA ONE (06:56)
[2018-02-07] MEDS ORDERED: ACETAMINOPHEN IV (For NPO) 1,000 MG in EMPTY BAG 1 BAG IVPB ONE (07:00)
[2018-02-07] MEDS ORDERED: ePHEDrine SULFATE/0.9% NACL/PF 50 MG/5 ML SYRINGE IV ONE (07:28)
[2018-02-07] MEDS ORDERED: NEOSTIGMINE 1 MG/ML 10 ML VIAL ONE (07:28)
[2018-02-07] MEDS ORDERED: ROCURONIUM BROMIDE 10 MG/ML 10 ML VIAL IV ONE (07:28)
[2018-02-07] MEDS ORDERED: LIDOCAINE 1% INJ 10MG/ML (20 ML MDV) ONE (07:28)
[2018-02-07] MEDS ORDERED: fentaNYL (PF) 50 MCG/ML 2 ML AMP ONE (07:28)
[2018-02-07] MEDS ORDERED: PROPOFOL 10 MG/ML 20 ML VIAL IV ONE (07:28)
[2018-02-07] MEDS ORDERED: SUCCINYLCHOLINE CHLORIDE 100 MG/5 ML SYR IV ONE (07:28)
[2018-02-07] MEDS ORDERED: GLYCOPYRROLATE 0.2 MG/ML 2 ML VIAL ONE (07:28)
[2018-02-07] MEDS ORDERED: INDOCYANINE GREEN 25 MG VIAL IV ONE (07:30)
[2018-02-07] MEDS ORDERED: SODIUM CHLORIDE 0.9% 50 ML with ceFAZolin 3,000 MG IV ONE ×2 (07:50)
[2018-02-07] MEDS ORDERED: BUPIVACAIN-EPI 0.25%-1:200,000 30 ML VIAL SQ ONE (08:00)
[2018-02-07] MEDS ORDERED: LACTATED RINGERS 1,000 ML IV ONE (08:36)
[2018-02-07 09:07] VITALS: TEMP 96.8
--- NOTE | 2018-02-07 09:11 | P.OP ---
Date of Procedure: 02/07/18 Description of Procedure: SURGEON: EDWARD JOHNSON MD PREOPERATIVE DIAGNOSES: 1. Chronic cholecystitis 2. Gastroesophageal reflux disease. 3. Morbid obesity due to excess calories, BMI 40.8 4. Multiple food ALLERGIES 5. Right upper quadrant abdominal pain 6. Fatty food intolerance 7. Fatty liver disease POSTOPERATIVE DIAGNOSES: 1. Chronic cholecystitis 2. Gastroesophageal reflux disease. 3. Morbid obesity due to excess calories, BMI 40.8 4. Multiple food ALLERGIES 5. Right upper quadrant abdominal pain 6. Fatty food intolerance OPERATION: Robotic-assisted da Alireza Xi laparoscopic cholecystectomy, multiport with FIREFLY ESTIMATED BLOOD LOSS: 5 mL. SPECIMENS REMOVED: Gallbladder. COMPLICATIONS: None. OPERATIVE FINDINGS: 1. Chronic cholecystitis 2. Intrahepatic gallbladder adding complexity to case INDICATIONS: The patient is a 47-year-old male who presents with cholelcystitis. Surgical intervention with a laparoscopic cholecystectomy was described at length including injury to the biliary tree, bleeding, infection, need for further surgery. Informed consent was obtained. Robotic assisted laparoscopic approach was described. Benefits and risks of the procedure including but not limited to bleeding, infection, injury to the biliary tree was described. Informed consent was obtained. DESCRIPTION OF PROCEDURE: Patient was brought to the operating room, placed in supine position. After general induction, the abdomen had been prepped and draped in standard sterile fashion. The robotic da Alireza XI system was primed. After a timeout protocol was performed, the patient had been prepped and draped in standard sterile fashion. The patient was injected with indocyanine green. A 5 mm 0 degrees laparoscopic trocar entry was performed along the left upper quadrant. The abdomen insufflated to 15 mmHg pressure which was tolerated well. Diagnostic laparoscopy demonstrated no injury to bowel viscera or mesentery. The liver surface was unremarkable. Next, two 8 mm robotic ports were placed along the right upper abdomen. The camera 8-mm port was maintained along the epigastrium. Another 8 mm port was placed along the left upper abdominal wall after exchanging the 5 mm port. Please note that the ports were placed at least 10 to 15 cm away from the target anatomy of the gallbladder. The robot was docked along the left lateral abdomen. The patient was repositioned in reverse Trendelenburg position. Using a grasper for arm 3, a grasper for arm 4, including hook cautery for arm 1 , the robotic system was docked and primed as described. Instruments were interchanged by the volleyball assistant coach including hook cautery, Bovie cautery and clip appliers. I had sat at the console. Adhesions were identified along the gallbladder infundibulum addressed using Bovie cautery. The gallbladder fundus was retracted over the dome of the liver. Initial attention was brought to the infundibulum which was gently retracted in the inferior lateral approach. Using a grasper, the cystic duct including the cystic artery was carefully skeletonized. FIREFLY was used to identify the cystic artery and cystic structures. Large PLASTIC clips were used throughout the entire case. Using a clip engine boss 1 clip was placed proximally, and 1 clip was placed distally along the cystic duct and then cauterized with the cautery. Again care was taken to avoid any injury to the biliary tree as the common bile duct was clearly visualized during this portion of dissection. Next, the cystic artery was addressed using vessel sealer. Dome down technique starting from gallbladder fundus towards infundibulum was performed for intrahepatic gallbladder. Iatrogenic decompression did occur and controlled at the gallbladder fundus with minimal contamination. Electro-Bovie cautery was used to remove the gallbladder from the hepatic fossa. Hemostasis was checked and found to be adequate. The robot was undocked. I re-scrubbed into the case. Using a 10 mm Endo Catch bag via the left upper quadrant incision, the specimen was removed from the abdominal cavity. All pneumoperitoneum instruments were evacuated from the abdominal cavity. The incisions were reapproximated using 4-0 Monocryl in an interrupted subcuticular fashion. Fascial defects were less than 8 mm in size. Please note along the trocar sites, local anesthetic was placed as a field block prior to insertion of all instruments. Liquid glue was applied to the skin. At the end of the procedure needle, sponge, and instrument count had been verified correct by the surgical orderly. The patient was transferred to postanesthesia care unit in stable condition. Intraoperative films were shared with the patient's family who were very pleased with the level of care. Console time 34 minutes Plan - Discharge Summary New Discharge Prescriptions: New HYDROcodone/APAP 5-325MG [[place] 5-325] 1 tab PO Q4HR PRN 3 Days #18 tab PRN Reason: Pain Discharge Medication List HYDROcodone/APAP 5-325MG [[place] 5-325] 1 tab PO Q4HR PRN 3 Days #18 tab [Rx] Follow up Appointment(s)/Referral(s): [facility] [[facility]-STA[facility]] - 02/23/18 Patient Instructions/Handouts: Low Fat Diet (DC), Laparoscopic Cholecystectomy (DC) Activity/Diet/Wound Care/Special Instructions: No lifting over 4 pounds in 2 weeks. May shower. No bath tub soaks. Low-fat diet for 1 week. Discharge Disposition: HOME SELF-CARE
[2018-02-07] MEDS: HYDROmorphone 1 MG/ML 1 ML SYRINGE IVP PRN ×2 (09:25→09:28)
[2018-02-07] MEDS ORDERED: HYDROcodone/APAP 5-325MG 1 EACH TAB PO ONE (10:07)
[2018-02-07 11:21] VITALS: BP 104/67; PULSE 56; RESP 16
== END 2018-02-07 11:40 | disposition home or self-care (01) ==
LOC: OR 06:04 → EDSTATUS 07:30 → OR 11:40
PROVIDERS: ATTEND Surgery Plastic and Reconstructive Surgery
DX: K81.1 Chronic cholecystitis (principal); Q44.1 Other congenital malformations of gallbladder; K21.9 Gastro-esophageal reflux disease without esophagitis; E66.01 Morbid (severe) obesity due to excess calories; Z68.41 Body mass index [BMI] 40.0-44.9, adult; K90.49 Malabsorption due to intolerance, not elsewhere classified; K76.0 Fatty (change of) liver, not elsewhere classified; I10 Essential (primary) hypertension; M19.90 Unspecified osteoarthritis, unspecified site; M54.9 Dorsalgia, unspecified; G89.29 Other chronic pain; G47.33 Obstructive sleep apnea (adult) (pediatric); Z99.89 Dependence on other enabling machines and devices; Z88.8 Allergy status to other drugs, medicaments and biological substances; Z91.011 Allergy to milk products; Z91.018 Allergy to other foods
CPT/HCPCS: 88304; 47562; J2250; J1100; J2710; J2405; J2001; J1650; J3010; J1170; J0690; J0131; J0330; J2704; 86850; 86900; 86901

== ENCOUNTER → 2018-02-09 | Outpatient (CLI) | payer BC ==
--- NOTE | 2018-02-09 14:58 | P.PN ---
Subjective Progress Note Date: 02/09/18 HPI: He is doing well since surgery. No more GERD. He is doing well since his gallbladder surgery. He is looking into a sleeve gastrectomy. Follow-up in 3 to 6 months. ABDOMEN: Incisions. PLAN: 1. Follow up later.
[2018-02-09 15:12] VITALS: BP 133/86; PULSE 86; RESP 16; TEMP 98.3; BMI 40.7
== END | disposition home or self-care (01) ==
LOC: BARWHC3 14:51
PROVIDERS: ATTEND Surgery Plastic and Reconstructive Surgery
DX: Z48.815 Encounter for surgical aftercare following surgery on the digestive system (principal); Z98.890 Other specified postprocedural states
CPT/HCPCS: 99211

== ENCOUNTER → 2018-05-25 | Outpatient (CLI) | payer BC ==
--- NOTE | 2018-05-25 17:33 | P.PN ---
Subjective Progress Note Date: 05/25/18 DATE OF SERVICE: 05/25/2018 CHIEF COMPLAINT: Morbid obesity HISTORY OF PRESENT ILLNESS: Joey Chaney is a 48-year-old male with long- standing morbid obesity. He is feeling very well. He no longer has gastroesophageal reflux disease. He has no more fatty food intolerance. He comes in with increased weight gain. He is looking into a sleeve gastrectomy. At his height of 5 foot 8.75 inches, his ideal body weight is 163 pounds. He had weighed 319 pounds. Today, he comes in weighing 285 pounds from 273 pounds, 4 months ago. He has gained 12 pounds in 4 months. Body mass index was 47.6 down to 42.5. He is 122 pounds overweight. PAST MEDICAL HISTORY: 1. Morbid obesity. 2. Body mass index of 47.6, initial 3. Osteoarthritis of the knees. 4. Osteoarthritis of the hips. 5. Osteoarthritis of the lower back. 6. Obstructive sleep apnea. 7. Hypertensive heart disease. 8. Osteoarthritis of the ankles. 9. Gastroesophageal reflux disease. 10. Osteoarthritis of the right shoulder. 11. H pylori gastritis. 12. Lipoma of the abdominal wall. PAST SURGICAL HISTORY: 1. Rhinoplasty. 2. Vasectomy. 3. Tonsillectomy. 4. Upper endoscopy 5. Hiatal hernia repair 6. Cholecystectomy HOME MEDICATIONS: 1. Verapamil 2. Zantac 3. Tums ALLERGIES: 1. Omeprazole. 2. Multiple food ALLERGIES. SOCIAL HISTORY: No active tobacco use. FAMILY HISTORY: No family history of ulcerative colitis disease or Crohn's disease. Family history of morbid obesity. No lupus in the family. No reports of stomach or esophageal cancer. Family history of diabetes type 2. REVIEW OF ORGAN SYSTEMS: CONSTITUTIONAL: At his height of 5 foot 8.75 inches, his ideal body weight is 163 pounds. He comes in weighing 309 pounds. He has lost 6 pounds in 2 months. Body mass index was 47.0 now down to 46.0. He is 146 pounds overweight. HEENT: Denies any active troubles with vision or hearing. No troubles with swallowing. ENDOCRINE: No diabetes. No hypothyroidism. CARDIOVASCULAR: No reports of palpitations or heart attacks or chest pain. RESPIRATORY: Has daytime somnolence. No asthma. Has obstructive sleep apnea. GI: Denies any bright red blood per rectum. No diarrhea or constipation. Has gastroesophageal reflux disease. MUSCULOSKELETAL: Has lower back pain and joint pain. Has osteoarthritis of the knees. NEURO: No headaches. No seizure disorders. PSYCH: No depression or suicidal ideation. RHEUMATOLOGIC: No lupus. No rheumatoid arthritis. HEMATOLOGIC: Denies any abnormal bleeding or bruising. No personal history of DVTs. SKIN: No rash. No skin cancer. PHYSICAL EXAM: VITAL SIGNS: Height 5 foot 8.75 inches, weight 285 pounds. BMI 42.5 Vital Signs Temp 98.6 F 05/26/18 17:23 Pulse 73 05/26/18 17:23 Resp BP 127/94 05/26/18 17:23 Pulse Ox GENERAL: Well-developed in no acute distress. HEENT: No scleral icterus. Extraocular movements grossly intact. Hears conversational speech. No nasal drainage. NECK: Supple without lymphadenopathy. CHEST: Nonlabored respirations with equal bilateral excursions. CARDIOVASCULAR: Regular rate and regular rhythm. Distal 2+ pulses. ABDOMEN: Soft, nontender. MUSCULOSKELETAL: No clubbing, cyanosis. NEURO: No focal or lateralizing signs. Cranial nerves 2 through 12 grossly wi thin normal limits. PSYCH: Appropriate affect. Alert and oriented to person, place and time. SKIN: Good skin turgor. Well perfused. ASSESSMENT: 1. Morbid obesity. 2. Body mass index of 47.0 to 42.5 3. Osteoarthritis of the knees. 4. Osteoarthritis of the hips. 5. Osteoarthritis of the lower back. 6. Obstructive sleep apnea. 7. Hypertensive heart disease. 8. Osteoarthritis of the ankles. 9. Gastroesophageal reflux disease. PLAN: 1. Bariatric options between a sleeve, band and a Filomena-en-Y gastric bypass were reviewed in detail. The patient elected for a sleeve gastrectomy. Robotic assisted approach described. 2. The [place] [facility] Data was also reviewed with benefits and risks as described. 3. An 8 page second-generation bariatric consent form was reviewed in detail including potential of bleeding, infection, leaks, adequate weight loss, nutritional deficiencies which the patient demonstrated understanding of the risks. 4. A 2 week high-protein low caloric 800 kcal diet described to address hepatomegaly. 5. Preoperative labs including complete metabolic panel and CBC with type and screen recommended. 6. DVT prophylaxis per [place] [facility]. 7. Antibiotic prophylaxis. 8. Inpatient hospitalization anticipated for more than 2 nights. 9. All questions and concerns were addressed with the patient. 10. Will need Toradol for elbow pain with hydration.
[2018-06-02 15:22] VITALS: BP 127/94; PULSE 73; TEMP 98.6; BMI 42.5
== END | disposition home or self-care (01) ==
LOC: BARWHC3 15:53
PROVIDERS: ATTEND Surgery Plastic and Reconstructive Surgery
DX: E66.01 Morbid (severe) obesity due to excess calories (principal); M17.0 Bilateral primary osteoarthritis of knee; M16.0 Bilateral primary osteoarthritis of hip; M47.9 Spondylosis, unspecified; G47.33 Obstructive sleep apnea (adult) (pediatric); I11.9 Hypertensive heart disease without heart failure; K21.9 Gastro-esophageal reflux disease without esophagitis; M19.072 Primary osteoarthritis, left ankle and foot; M19.071 Primary osteoarthritis, right ankle and foot; M19.011 Primary osteoarthritis, right shoulder; K29.70 Gastritis, unspecified, without bleeding; Z68.42 Body mass index [BMI] 45.0-49.9, adult; Z90.49 Acquired absence of other specified parts of digestive tract; Z90.89 Acquired absence of other organs; Z98.890 Other specified postprocedural states; Z98.52 Vasectomy status; Z79.899 Other long term (current) drug therapy; Z91.018 Allergy to other foods; Z88.8 Allergy status to other drugs, medicaments and biological substances; Z83.49 Family history of other endocrine, nutritional and metabolic diseases; Z86.018 Personal history of other benign neoplasm; Z87.19 Personal history of other diseases of the digestive system; Z91.048 Other nonmedicinal substance allergy status
CPT/HCPCS: 99211

== ENCOUNTER 2018-05-29 11:35 | Emergency (ER) | payer BC ==
[2018-05-29 11:39] VITALS: RESP 18; TEMP 98.3
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
--- NOTE | 2018-05-29 12:13 | CT ---
EXAMINATION TYPE: CT brain wo con DATE OF EXAM: 05/29/2018 COMPARISON: NONE HISTORY: Head laceration, struck head on steel top of head to the Rt CT DLP: 1082.4 mGycm Automated exposure control for dose reduction was used. FINDINGS: Central structures are midline. There is no evidence of hydrocephalus. No acute focal lesion, mass ef fect or midline shift is seen. I do not see evidence of intracranial blood. There is an air-fluid level in the right maxillary sinus and there is mucoperiosteal thickening invol ving the posterior left-sided AC joints and sphenoid sinuses. The mastoid air cells are clear. The [place] calvarium is intact. IMPRESSION: 1. NO ACUTE INTRACRANIAL ABNORMALITY. 2. ACUTE ON CHRONIC RIGHT MAXILLARY SINUS MUCOSAL DISEASE.
[2018-05-29] MEDS ORDERED: MORPHINE SULFATE 4 MG/ML SYRINGE IM STA (12:16)
[2018-05-29] MEDS ORDERED: IBUPROFEN 800 MG TAB PO STA (12:24)
[2018-05-29 12:33] VITALS: BP 137/89; PULSE 82
== END 2018-05-29 12:36 | disposition home or self-care (01) ==
LOC: EC 11:35
DX: S06.0X1A Concussion with loss of consciousness of 30 minutes or less, initial encounter (principal); S01.01XA Laceration without foreign body of scalp, initial encounter; G47.33 Obstructive sleep apnea (adult) (pediatric); Z91.011 Allergy to milk products; Z91.018 Allergy to other foods; Z91.010 Allergy to peanuts; Z91.048 Other nonmedicinal substance allergy status; Z88.8 Allergy status to other drugs, medicaments and biological substances; Z91.013 Allergy to seafood; W22.8XXA Striking against or struck by other objects, initial encounter
CPT/HCPCS: 70450; 99284

== ENCOUNTER → 2018-06-08 | Outpatient (CLI) | payer BC ==
[2018-06-08 13:54] LABS: HCT 47.1 % (39.0-53.0); HGB 15.3 gm/dL (13.0-17.5); MCH 30.7 pg (25.0-35.0); MCHC 32.5 g/dL (31.0-37.0); MCV 94.4 fL (80.0-100.0); Mean Platelet Volume 7.2; Platelet Count 215 k/uL (150-450); RBC 4.98 m/uL (4.30-5.90); RDW 13.3 % (11.5-15.5); WBC 5.5 k/uL (3.8-10.6)
[2018-06-08 13:56] LABS: INR 0.9 (<1.2); Partial Thromboplastin Time 24.6 sec (22.0-30.0); Prothrombin Time 9.8 sec (9.0-12.0)
[2018-06-08 19:05] LABS: Iron Saturation 25.34 (15.00-50.00)
[2018-06-08 19:08] LABS: Albumin 4.4 g/dL (3.80-4.90); Anion Gap 8.7 mmol/L (4.00-12.00); Calcium 9.2 mg/dL (8.7-10.3); Carbon Dioxide 24.3 mmol/L (21.6-31.8); Globulin 2.2 g/dL (1.6-3.3); LDL Cholesterol,Calculated 80.6 mg/dL (0.0-131.0); Magnesium 2.1 mg/dL (1.5-2.4); Phosphorus 3.9 mg/dL (2.4-5.1); Potassium 3.9 mmol/L (3.5-5.5); Total Bilirubin 0.5 mg/dL (0.3-1.2); Total Protein 6.6 g/dL (6.2-8.2); VLDL Calculation 23.4 mg/dL (5.00-40.00)
[2018-06-08 19:12] LABS: Vitamin D 25 Hydroxy 23.9 ng/mL (30.0-100.0)
[2018-06-08 19:14] LABS: Folate, Serum 9.4 ng/mL
[2018-06-08 19:20] LABS: Parathyroid Hormone Intact 65.3 pg/mL (14.0-72.0)
[2018-06-08 22:34] LABS: Hemoglobin A1C 5.4 % (4.0-6.0)
[2018-06-09 11:02] LABS: Zinc, Serum 79 ug/dL (60-130)
[2018-06-10 06:42] LABS: Vitamin A 48 ug/dL (38-106)
[2018-06-10 06:51] LABS: Vit B1(Thiamine) 69 ug/L (38-122)
== END | disposition home or self-care (01) ==
LOC: LABWHC1 12:35
PROVIDERS: ATTEND Surgery Plastic and Reconstructive Surgery
DX: E66.01 Morbid (severe) obesity due to excess calories (principal); E21.1 Secondary hyperparathyroidism, not elsewhere classified; D50.9 Iron deficiency anemia, unspecified; K90.9 Intestinal malabsorption, unspecified; E55.9 Vitamin D deficiency, unspecified; K74.1 Hepatic sclerosis; N19 Unspecified kidney failure; K50.90 Crohn's disease, unspecified, without complications
CPT/HCPCS: 36415; 80053; 80061; 82306; 82525; 82607; 82728; 82746; 83036; 83540; 83550; 83735; 83970; 84100; 84134; 84255; 84425; 84443; 84590; 84630; 85027; 85610; 85730

== ENCOUNTER → 2018-07-27 | Outpatient (CLI) | payer BC ==
--- NOTE | 2018-07-31 18:41 | P.PN ---
Subjective Progress Note Date: 07/27/18 DATE OF SERVICE: 07/27/2018 CHIEF COMPLAINT: Morbid obesity HISTORY OF PRESENT ILLNESS: Joey Chaney is a 48-year-old male with long- standing morbid obesity. As a result of his obesity, he has developed obstructive sleep apnea, hypertensive heart disease, osteoarthritis of the knees and hips. He reports no further gastroesophageal reflux disease since his hiatal hernia repair and cholecystectomy. He has history of bone aches following surgical procedures. He has completed medical supervised weight loss. At his height of 5 foot 8.75 inches, his ideal body weight is 163 pounds. He had weighed 319 pounds. Today, he comes in weighing 279 pounds from 285 pounds, 2 months ago. He has lost 6 pounds in 2 months. Body mass index was 47.6 down to 41.6. He is 116 pounds overweight. PAST MEDICAL HISTORY: 1. Morbid obesity due to excess calories. 2. Body mass index of 47.6, initial 3. Osteoarthritis of the knees. 4. Osteoarthritis of the hips. 5. Osteoarthritis of the lower back. 6. Obstructive sleep apnea. 7. Hypertensive heart disease. 8. Osteoarthritis of the ankles. 9. Gastroesophageal reflux disease. 10. Osteoarthritis of the right shoulder. 11. H pylori gastritis. 12. Lipoma of the abdominal wall. PAST SURGICAL HISTORY: 1. Rhinoplasty. 2. Vasectomy. 3. Tonsillectomy. 4. Upper endoscopy 5. Hiatal hernia repair 6. Cholecystectomy HOME MEDICATIONS: 1. Verapamil ALLERGIES: 1. Omeprazole. 2. Multiple food ALLERGIES. SOCIAL HISTORY: No active tobacco use. FAMILY HISTORY: No family history of ulcerative colitis disease or Crohn's disease. Family history of morbid obesity. No lupus in the family. No reports of stomach or esophageal cancer. Family history of diabetes type 2. REVIEW OF ORGAN SYSTEMS: CONSTITUTIONAL: At his height of 5 foot 8.75 inches, his ideal body weight is 163 pounds. He had weighed 319 pounds. Body mass index was 47.0. HEENT: Denies any active troubles with vision or hearing. No troubles with swallowing. ENDOCRINE: No diabetes. No hypothyroidism. CARDIOVASCULAR: No reports of palpitations or heart attacks or chest pain. RESPIRATORY: Has daytime somnolence. No asthma. Has obstructive sleep apnea. GI: Denies any bright red blood per rectum. No diarrhea or constipation. Has gastroesophageal reflux disease now resolved. MUSCULOSKELETAL: Has lower back pain and joint pain. Has osteoarthritis of the knees. NEURO: No headaches. No seizure disorders. PSYCH: No depression or suicidal ideation. RHEUMATOLOGIC: No lupus. No rheumatoid arthritis. HEMATOLOGIC: Denies any abnormal bleeding or bruising. No personal history of DVTs. SKIN: No rash. No skin cancer. PHYSICAL EXAM: VITAL SIGNS: Height 5 foot 8.75 inches, weight 279 pounds. BMI 41.6 Vital Signs Temp 98.1 F 07/27/18 15:51 Pulse 86 07/27/18 15:51 Resp 16 07/27/18 15:51 BP 125/81 07/27/18 15:51 Pulse Ox GENERAL: Well-developed in no acute distress. HEENT: No scleral icterus. Extraocular movements grossly intact. Hears conversational speech. No nasal drainage. NECK: Supple without lymphadenopathy. CHEST: Nonlabored respirations with equal bilateral excursions. CARDIOVASCULAR: Regular rate and regular rhythm. Distal 2+ pulses. ABDOMEN: Soft, nontender. MUSCULOSKELETAL: No clubbing, cyanosis. NEURO: No focal or lateralizing signs. Cranial nerves 2 through 12 grossly within normal limits. PSYCH: Appropriate affect. Alert and oriented to person, place and time. SKIN: Good skin turgor. Well perfused. ASSESSMENT: 1. Morbid obesity. 2. Body mass index of 47.0 to 41.6 3. Osteoarthritis of the knees. 4. Osteoarthritis of the hips. 5. Osteoarthritis of the lower back. 6. Obstructive sleep apnea. 7. Hypertensive heart disease. 8. Osteoarthritis of the ankles. 9. Gastroesophageal reflux disease. 10. Post-operative bone pain. PLAN: 1. Bariatric options between a sleeve, band and a Filomena-en-Y gastric bypass were reviewed in detail. The patient elected for a sleeve gastrectomy. Robotic assisted approach described. Consent for sleeve gastrectomy described. 2. The [place] [facility] Data was also reviewed with benefits and risks as described. 3. An 8 page second-generation bariatric consent form was reviewed in detail including potential of bleeding, infection, leaks, adequate weight loss, nutritional deficiencies which the patient demonstrated understanding of the risks. 4. A 2 week high-protein low caloric 800 kcal diet described to address hepatomegaly. 5. Preoperative labs including complete metabolic panel and CBC with type and screen recommended. 6. DVT prophylaxis per [place] [facility] collaborative. 7. Antibiotic prophylaxis. 8. Inpatient hospitalization anticipated for 2 nights. 9. All questions and concerns were addressed with the patient. 10. Give zantac and ibuprofen and fluids to treat post-operative bone pain. 11. He is intermediate risk for complications with his hypertensive heart disease and obstructive sleep apnea. Objective - Vital Signs Vital signs: Vital Signs Temp 98.1 F 07/27/18 15:51 Pulse 86 07/27/18 15:51 Resp 16 07/27/18 15:51 BP 125/81 07/27/18 15:51 Pulse Ox
== END | disposition home or self-care (01) ==
CPT/HCPCS: 99211

== ENCOUNTER 2018-08-01 10:01 | Inpatient (IN) | payer BC ==
--- NOTE | 2018-07-27 16:41 | P.PN ---
Subjective Progress Note Date: 07/27/18 HPI: Consent for sleeve. He has history bone aches. Give zantac and ibuprofen and fluids and stay in hospital for 2 days.
--- NOTE | 2018-07-31 18:37 | P.GSHP ---
History of Present Illness H&P Date: 08/01/18 DATE OF SERVICE: 08/01/2018 CHIEF COMPLAINT: Morbid obesity HISTORY OF PRESENT ILLNESS: Joey Chaney is a 48-year-old male with long- standing morbid obesity. He is looking into a sleeve gastrectomy. He comes in with osteoarthritis of multipe weight bearing joints, hypertensive heart disease and obstructive sleep apnea as a result of his obesity. At his height of 5 foot 8.75 inches, his ideal body weight is 163 pounds. He had weighed 319 pounds. Today, he comes in weighing 277 pounds. Body mass index was 47.6 down to 42.5. He is 114 pounds overweight. PAST MEDICAL HISTORY: 1. Morbid obesity. 2. Body mass index of 47.6, initial 3. Osteoarthritis of the knees. 4. Osteoarthritis of the hips. 5. Osteoarthritis of the lower back. 6. Obstructive sleep apnea. 7. Hypertensive heart disease. 8. Osteoarthritis of the ankles. 9. Gastroesophageal reflux disease. 10. Osteoarthritis of the right shoulder. 11. H pylori gastritis. 12. Lipoma of the abdominal wall. PAST SURGICAL HISTORY: 1. Rhinoplasty. 2. Vasectomy. 3. Tonsillectomy. 4. Upper endoscopy 5. Hiatal hernia repair 6. Cholecystectomy HOME MEDICATIONS: 1. Verapamil 2. Zantac 3. Tums ALLERGIES: 1. Omeprazole. 2. Multiple food ALLERGIES. SOCIAL HISTORY: No active tobacco use. FAMILY HISTORY: No family history of ulcerative colitis disease or Crohn's disease. Family history of morbid obesity. No lupus in the family. No reports of stomach or esophageal cancer. Family history of diabetes type 2. Has family history of PE and DVTs. REVIEW OF ORGAN SYSTEMS: CONSTITUTIONAL: At his height of 5 foot 8.75 inches, his ideal body weight is 163 pounds. He comes was 319 pounds. Body mass index was 47.6. HEENT: Denies any active troubles with vision or hearing. No troubles with swallowing. ENDOCRINE: No diabetes. No hypothyroidism. CARDIOVASCULAR: No reports of palpitations or heart attacks or chest pain. RESPIRATORY: Has daytime somnolence. No asthma. Has obstructive sleep apnea. GI: Denies any bright red blood per rectum. No diarrhea or constipation. Has gastroesophageal reflux disease now resolved. MUSCULOSKELETAL: Has lower back pain and joint pain. Has osteoarthritis of the knees. NEURO: No headaches. No seizure disorders. PSYCH: No depression or suicidal ideation. RHEUMATOLOGIC: No lupus. No rheumatoid arthritis. HEMATOLOGIC: Denies any abnormal bleeding or bruising. No personal history of DVTs. Has family history of PE and DVTs. SKIN: No rash. No skin cancer. PHYSICAL EXAM: VITAL SIGNS: Height 5 foot 8.75 inches, weight 277 pounds. BMI 41.1 Vital Signs Temp 98.6 F 05/26/18 17:23 Pulse 73 05/26/18 17:23 Resp BP 127/94 05/26/18 17:23 Pulse Ox GENERAL: Well-developed in no acute distress. HEENT: No scleral icterus. Extraocular movements grossly intact. Hears conversational speech. No nasal drainage. NECK: Supple without lymphadenopathy. CHEST: Nonlabored respirations with equal bilateral excursions. CARDIOVASCULAR: Regular rate and regular rhythm. Distal 2+ pulses. ABDOMEN: Soft, nontender. MUSCULOSKELETAL: No clubbing, cyanosis. NEURO: No focal or lateralizing signs. Cranial nerves 2 through 12 grossly within normal limits. PSYCH: Appropriate affect. Alert and oriented to person, place and time. SKIN: Good skin turgor. Well perfused. ASSESSMENT: 1. Morbid obesity. 2. Body mass index of 47.6 to 41.1 3. Osteoarthritis of the knees. 4. Osteoarthritis of the hips. 5. Osteoarthritis of the lower back. 6. Obstructive sleep apnea. 7. Hypertensive heart disease. 8. Osteoarthritis of the ankles. 9. Gastroesophageal reflux disease. 10. Post-operative chronic bone pain PLAN: 1. Bariatric options between a sleeve, band and a Filomena-en-Y gastric bypass were reviewed in detail. The patient elected for a sleeve gastrectomy. Robotic assisted approach described. 2. The [place] [facility] Data was also reviewed with benefits and risks as described. 3. An 8 page second-generation bariatric consent form was reviewed in detail including potential of bleeding, infection, leaks, adequate weight loss, nutritional deficiencies which the patient demonstrated understanding of the risks. 4. A 2 week high-protein low caloric 800 kcal diet described to address hepatomegaly. 5. Preoperative labs including complete metabolic panel and CBC with type and screen recommended. 6. DVT prophylaxis per [place] [facility] collaborative. 7. Antibiotic prophylaxis. 8. Inpatient hospitalization anticipated for more than 2 nights. 9. All questions and concerns were addressed with the patient. 10. Will need Toradol for elbow pain with hydration. Past Medical History Past Medical History: GERD/Reflux, Hypertension, Osteoarthritis (OA), Sleep Apnea/CPAP/BIPAP Additional Past Medical History / Comment(s): Hiatal hernia with recent surgery, HTN but not since wt loss, arthritis bilateral knees, hips, ankles, low back and R shoulder, CRISTELA with Cpap-ok at this time not using, Hpylori x2, iron deficienct, vitamin D deficiency, sinus problems in the past, mutliple food allergies. History of Any Multi-Drug Resistant Organisms: None Reported Past Surgical History: Cholecystectomy, Hernia Repair, Tonsillectomy Additional Past Surgical History / Comment(s): 12/20/17 Maddy Fudoplication, EGD, septoplasty/sinuplasty, deviated septum surgery, vasectomy, circumcision, 12/20/17= Hiatal hernia repair , 02/07/18= cholecystectomy Past Anesthesia/Blood Transfusion Reactions: Previous Problems w/ Anesthesia Additional Past Anesthesia/Blood Transfusion Reaction / Comment(s): slow when waking up Smoking Status: Never smoker - Past Family History Mother Family Medical History: No Reported History Father Family Medical History: Diabetes Mellitus, Hypertension Additional Family Medical History / Comment(s): Type 2 DM, Brother(s) Family Medical History: Pulmonary Embolus Additional Family Medical History / Comment(s): PE caused Medications and Allergies Home Medications Medication Instructions Recorded Confirmed Type No Known Home Medications 05/26/18 07/28/18 History Allergies Allergy/AdvReac Type Severity Reaction Status Date / Time corn Allergy Anaphylaxis Verified 07/28/18 10:30 lactose Allergy Diarrhea Verified 07/28/18 10:30 peas Allergy Anaphylaxis Verified 07/28/18 10:30 pollen extracts Allergy Rash/Hives Verified 07/28/18 10:30 Poultry Allergy Anaphylaxis Verified 07/28/18 10:30 tuna oil Allergy Anaphylaxis Verified 07/28/18 10:30 omeprazole AdvReac Severe "BONE PAIN" Verified 07/28/18 10:30 pantoprazole [From Protonix] AdvReac Severe forearms Verified 07/28/18 10:30 swollen & red,warm adhesive AdvReac Rash/Hives Verified 07/28/18 10:30
[~2018-08-01 10:01] MED LIST changes: +CHLORHEXIDINE GLUCONATE 15 ML CUP MUCOUS MEM ONE; -DEXAMETHASONE SOD PHOSPHATE 10 MG/ML 1 ML VIAL IV ONE; +FAMOTIDINE 20 MG/2 ML VIAL IV ONE; -INDOCYANINE GREEN 25 MG VIAL IV STA; -LACTATED RINGERS 1,000 ML IV SCH; -MIDAZOLAM 2 MG/2 ML VIAL IV PRN; -ONDANSETRON 4 MG/2 ML VIAL IVP ONE; -SCOPOLAMINE 1.5MG/72HR PATCH TRANSDERM ONE
[2018-08-01] MEDS ORDERED: LIDOCAINE 1% 20 ML VIAL (10MG/ML) FOR IV START INTRADERMA ONE (10:28)
[2018-08-01] MEDS ORDERED: LACTATED RINGERS 1,000 ML IV ONE ×2 (10:36→13:40)
[2018-08-01] MEDS ORDERED: ONDANSETRON 4 MG/2 ML VIAL IVP ONE (11:34)
[2018-08-01] MEDS ORDERED: DEXAMETHASONE SOD PHOSPHATE 10 MG/ML 1 ML VIAL IV ONE (11:35)
[2018-08-01] MEDS ORDERED: GLYCOPYRROLATE 0.2 MG/ML 2 ML VIAL ONE (11:47)
[2018-08-01] MEDS ORDERED: MIDAZOLAM 2 MG/2 ML VIAL ONE (11:47)
[2018-08-01] MEDS ORDERED: ROCURONIUM BROMIDE 10 MG/ML 10 ML VIAL IV ONE (11:47)
[2018-08-01] MEDS ORDERED: PHENYLEPHRINE-0.9% NACL SYG 1 MG/10 ML SYRINGE ONE (11:47)
[2018-08-01] MEDS ORDERED: HYDROmorphone (PF) 1 MG/ML ONE (11:47)
[2018-08-01] MEDS ORDERED: LIDOCAINE 1% INJ 10MG/ML (20 ML MDV) ONE (11:47)
[2018-08-01] MEDS ORDERED: fentaNYL (PF) 50 MCG/ML 2 ML AMP ONE (11:47)
[2018-08-01] MEDS ORDERED: ePHEDrine SULFATE/0.9% NACL/PF 50 MG/5 ML SYRINGE IV ONE (11:47)
[2018-08-01] MEDS ORDERED: NEOSTIGMINE 1 MG/ML 10 ML VIAL ONE (11:47)
[2018-08-01] MEDS ORDERED: PROPOFOL 10 MG/ML 20 ML VIAL IV ONE (11:47)
[2018-08-01] MEDS ORDERED: SUCCINYLCHOLINE CHLORIDE 100 MG/5 ML SYR IV ONE (11:47)
[2018-08-01] MEDS ORDERED: BUPIVACAIN-EPI 0.25%-1:200,000 30 ML VIAL SQ ONE ×2 (12:21→12:25)
[2018-08-01] MEDS ORDERED: HYDROmorphone 1 MG/ML 1 ML SYRINGE IVP PRN (13:52)
[2018-08-01] MEDS ORDERED: HYDROcodone/APAP 15 ML SOLUTION PO PRN (13:52)
[2018-08-01] MEDS ORDERED: NALOXONE 0.4 MG/ML 1 ML VIAL IV PRN (13:52)
--- NOTE | 2018-08-01 13:52 | P.OP ---
Date of Procedure: 08/01/18 Description of Procedure: SURGEON: EDWARD JOHNSON MD PREOPERATIVE DIAGNOSES: 1. Morbid obesity. 2. Body mass index of 47.6 to 41.1 3. Osteoarthritis of the knees. 4. Osteoarthritis of the hips. 5. Osteoarthritis of the lower back. 6. Obstructive sleep apnea. 7. Hypertensive heart disease. 8. Osteoarthritis of the ankles. 9. Gastroesophageal reflux disease. 10. Post-operative chronic bone pain POSTOPERATIVE DIAGNOSES: 1. Morbid obesity. 2. Body mass index of 47.6 to 41.1 3. Osteoarthritis of the knees. 4. Osteoarthritis of the hips. 5. Osteoarthritis of the lower back. 6. Obstructive sleep apnea. 7. Hypertensive heart disease. 8. Osteoarthritis of the ankles. 9. Gastroesophageal reflux disease. 10. Post-operative chronic bone pain OPERATION: 1. Robotic assisted daVinci Xi laparoscopic sleeve gastrectomy with 40-Emirati bougie, multiport. 2. Intraoperative esophagogastroduodenoscopy. ANESTHESIA: Gen. local anesthetic ESTIMATED BLOOD LOSS: 5 mL SPECIMENS REMOVED: Sleeve gastrectomy COMPLICATIONS: None. INDICATIONS: Joey Chaney is a 48-year-old male with long-standing morbid obesity. He is looking into a sleeve gastrectomy. He comes in with osteoarthritis of multipe weight bearing joints, hypertensive heart disease and obstructive sleep apnea as a result of his obesity. At his height of 5 foot 8.75 inches, his ideal body weight is 163 pounds. He had weighed 319 pounds. Today, he comes in weighing 277 pounds. Body mass index was 47.6 down to 42.5. He is 114 pounds overweight. All surgical options for morbid obesity had been described using the [place] [facility]ariat[facility] collaborative comorbidity resolution including complication risk score. A second-generation bariatric consent form was described in detail including the possibility of protein malnutrition, leaks, gastric stricture, venous thrombosis, gastroesophageal reflux disease, need for further surgery for which he demonstrated understanding. Benefits and risks of the procedure were described at length. Informed consent was obtained. DESCRIPTION: The patient was brought into the operating room theater. Preoperatively he had received Lovenox subcutaneously for DVT prophylaxis. Additionally he had Peridex oral solution as an oral decontaminant. After general induction, the abdomen was prepped and draped in standard sterile fashion. An Ioban draping was placed along the abdomen. Garcia catheter was placed. A robotic da Alireza Xi system was prepped and primed. At 15 cm from the xiphoid, proposed port sites were marked with indelible marker along the anterior axillary line bilaterally, mid axillary line bilaterally with each ports were marked 10 to 15 cm from each other. The preschool teacher's assistant port was marked along the left lateral abdominal wall. The robotic stapler port was marked for the right midclavicular line. A 5 mm 0 degrees laparoscopic trocar entry was performed along the left upper quadrant. The abdomen was insufflated to 15 mmHg pressure he tolerated well. Diagnostic laparoscopy demonstrated no injury to bowel, viscera, or mesentery. The liver surface was unremarkable without evidence of hepatomegaly or fatty liver disease. No injury had occurred to the small bowel or viscera. Along the hiatus no recurrent hiatal hernia was found. A 8 mm port was placed along the right upper abdominal wall after exchanging the 5 mm port. A separate 8 mm port was placed along the left lateral abdominal wall. Please note that the ports were placed at least 20 cm away from the target anatomy. Care was taken to check each robotic arms were safely away from collision with the bed or the patient. At the epigastrium, a medium sized Priya liver retractor was placed under direct visualization with the Iron Guzzler Builder placed under the right shoulder of the patient. Next, 12-mm robot stapler port was placed along the right upper quadrant. The camera 8-mm port was maintained along the epigastrium. The patient was repositioned in reverse Trendelenburg position at 16-degrees after lowering the bed. The robot was docked along the left side of the patient. Using a grasper for arm 4, a veseel sealer for arm 3, including grasper for arm 1, the robotic system was docked and primed as described. Instruments were interchanged by the preschool teacher's assistant for stapler loads. The camera was placed at 30-degrees down. I had sat at the console. The pylorus was identified and 6 cm proximally along the greater curvature of the stomach, the short gastrics were mobilized upwards to the angle of His using a vessel sealer. Hemostasis was excellent during this portion of the procedure. Next, the upper pole of the stomach was adherent to the left radha, which was gently dissected free using atraumatic grasper. The nursing senior cognos developer placed a 40-Emirati blunted tip bougie into the stomach. Robotic stapler black loads 60 mm x 2 followed by green 60 mm x 3 were used to create the sleeve. Initial firing was across the antrum of the stomach towards the angle of His. The staple line was completely hemostatic and linear without corkscrewing. Hemostasis was excellent. The space from the angularis incisura of the sleeve was approximately 4 cm. I then went to the head of the bed to perform the intraoperative esophagogastroduodenoscopy leak test. The upper pole of the stomach was bathed using normal saline solution. The scope was withdrawn with careful inspection along the staple line for which no leaks were found along the entire length. Additionally, the sleeve was completely hemostatic without any encroachment along the angularis incisura. Its topology was a soft "J". No stricture was encountered upon placement of the scope. The GI tract was desufflated. The patient tolerated this portion of the procedure well. The scope was completely withdrawn. The robot was undocked. I then rescrubbed into case, whereby the irrigation fluid was aspirated from the abdominal cavity. Tisseel fibrin sealant was placed along the entire staple length. Once dried the Priya liver retractor was removed. Attention was now brought to removal of the specimen. The distal end of the sleeve gastrectomy specimen was brought out through the 12 mm port at the left upper quadrant. The specimen was gently removed en total, corresponding to 20.5 cm x 5.5 cm sleeve gastrectomy specimen. No contamination had occurred during this process. All instruments and pneumoperitoneum including irrigation fluid was removed from the abdominal cavity. The 12 mm port site was irrigated with warm normal saline solution and diluted hydron peroxide. The 12-mm port site was reapproximated using 0 Vicryl and Dino-Manuela of the left upper quadrant. The final incisions were closed using subcuticular interrupted suture of 4-0 Monocryl. Dermabond was applied to the skin once the skin had been cleansed. OptiFoam dressing was placed along the stomach extraction site. At the end of the procedure, needle, sponge, and instrument count was verified correct by the low voltage technician. The patient was taken to the postanesthesia care unit in stable condition. He had tolerated the procedure well. Intraoperative films and findings were reviewed with the patient's family. FINDINGS: 1. Negative intraoperative esophagogastrojejunoscopy leak test. 2. No large hiatus hernia. 3. Total of 5 staplers used including 2 - 60 mm black and 3 - 60 mm green obot derian used to create the gastric sleeve. 4. Sleeve gastrectomy 20.5 x 5.5 cm
[2018-08-01 14:35] VITALS: RESP 16
[2018-08-01] MEDS: ONDANSETRON 4 MG/2 ML VIAL IVP SCH ×2 (16:40→23:16)
[2018-08-01] MEDS: KETOROLAC 30 MG/ML 1 ML VIAL IVP SCH ×2 (16:49→23:15)
[2018-08-01] MEDS: SIMETHICONE 40 MG/0.6 ML DROPS 2,000 MG/30 ML BOTTLE PO SCH ×2 (16:50→23:15)
[2018-08-01] MEDS: ALBUTEROL NEBULIZED 2.5 MG/3 ML INHALATION SCH ×2 (17:03→20:57)
[2018-08-01] MEDS ORDERED: ceFAZolin 3 GM in SODIUM CHLORIDE 0.9% 100 ML IVPB SCH (20:00)
[2018-08-02] MEDS ORDERED: ENOXAPARIN 40 MG/0.4 ML SYRINGE SQ SCH (03:00)
[2018-08-02] MEDS: SIMETHICONE 40 MG/0.6 ML DROPS 2,000 MG/30 ML BOTTLE PO SCH ×2 (06:34→11:52)
[2018-08-02] MEDS: KETOROLAC 30 MG/ML 1 ML VIAL IVP SCH ×2 (06:35→11:52)
[2018-08-02] MEDS: ONDANSETRON 4 MG/2 ML VIAL IVP SCH (06:35)
[2018-08-02] MEDS: ALBUTEROL NEBULIZED 2.5 MG/3 ML INHALATION SCH ×2 (07:20→12:11)
[2018-08-02] MEDS ORDERED: 1: MVI, ADULT NO.4 WITH VIT K 10 ML, THIAMINE 100 MG, FOLIC ACID 1 MG, POTASSIUM CHLORID IV SCH ×6 (08:00)
[2018-08-02 08:26] VITALS: BP 127/81; PULSE 56; TEMP 97.7
--- NOTE | 2018-08-02 08:35 | P.PN ---
Subjective Progress Note Date: 08/02/18 CHIEF COMPLAINT: Status post sleeve gastrectomy HISTORY OF PRESENT ILLNESS: The patient is a 48-year-old male postop day 1 status post sleeve gastrectomy for morbid obesity, 08/01/2018. He is tolerating diet. Pain is well-controlled. He sitting up in a chair. No reports of postanesthesia bone pain. ROS: No reports of nausea and vomiting. No bowel movements. No fevers or chills. No new chest pain. No productive sputum PHYSICAL EXAM: VITAL SIGNS: Reviewed CONSTITUTIONAL: Well developed and in no acute distress. EYES: Conjuctivae without sclera icterus. Extraocular movements grossly intact. HEAD, EARS, NOSE, THROAT: Moist buccal mucosa. Head is atraumatic, normocephalic. Hears conversational speech. No nasal drainage. NECK: Supple. No thyroidomegaly. RESPIRATORY: Non-labored respirations and equal bilateral excursions. CARDIOVASCULAR: Palpable 2+ radial pulses. Regular rate. Regular rhythm. ABDOMEN: Incisions clean dry and intact. Soft. No peritonitis. Minimal tenderness left upper quadrant. MUSCULOSKELETAL: No gross deformity of the lower extremities noted. No clubbing. No cyanosis. SKIN: Good skin turgor. Well perfused. NEUROLOGIC: Cranial nerves I through XII grossly intact. No focal or lateralizing signs. PSYCH: Appropriate affect. Alert and oriented to person, place and time. CLINCAL LABS: Pending ASSESSMENT: 1. Morbid obesity due to excess calories, BMI 41.1 2. History of multiple food and drug ALLERGIES 3. History of post anesthesia bone pain PLAN: 1. May be discharged home today after completion of upper GI 2. Postoperative pain management includes Ibuprofen and hydration to decrease risk of postanesthesia bone pain 3. Will need abdominal binder for abdominal wall support 4. Medications adjusted to Zantac for GI prophylaxis Objective - Vital Signs Vital signs: Vital Signs Temp 97.7 F 08/02/18 07:45 Pulse 56 L 08/02/18 07:45 Resp 16 08/02/18 07:45 BP 127/81 08/02/18 07:45 Pulse Ox 98 08/02/18 07:45 Intake & Output 08/01/18 08/02/18 08/02/18 18:59 06:59 18:59 Intake Total 1550 Output Total 305 Balance 1245 Intake: IV 1550 Output: Urine 300 Estimated Blood Loss 5 Other: Voiding Method Urinal Toilet Urinal # Voids 2
--- NOTE | 2018-08-02 09:53 | FL ---
EXAMINATION TYPE: FL UGI DATE OF EXAM: 08/02/2018 CLINICAL HISTORY: Gastric sleeve postoperative exam TECHNIQUE: Limited esophagram is performed utilizing 25 mL of Isovue-370. A total of 1 minute and 4 seconds of fluoroscopic time was utilized during procedure. 16 fluoroscopic images were saved. COMPARISON: None. FINDINGS: The patient swallowed contrast without difficulty or delay. Esophageal peristalsis and mo tility are within normal limits. There is moderate delay flow of contrast along the diaphragmatic hi atus into proximal stomach and subsequent flow into gastric sleeve. There is no evidence of contrast extravasation to suggest leak. IMPRESSION: No evidence of leak obstruction status post recent gastric sleeve surgery. Moderate obstr uction at the gastroesophageal junction, likely from postoperative edema.
[2018-08-02 10:40] LABS: Basophils % (A) 0 %; Eosinophils # (A) 0.1 k/uL (0-0.7); Eosinophils % (A) 1 %; HCT 48.1 % (39.0-53.0); HGB 15.7 gm/dL (13.0-17.5); Lymphocytes # (A) 1.5 k/uL (1.0-4.8); Lymphocytes % (A) 13 %; MCH 30.9 pg (25.0-35.0); MCHC 32.7 g/dL (31.0-37.0); MCV 94.2 fL (80.0-100.0); Mean Platelet Volume 8.8; Monocytes # (A) 0.6 k/uL (0-1.0); Monocytes % (A) 5 %; Neutrophils # (A) 9.4 k/uL (1.3-7.7); Neutrophils % (A) 80 %; Platelet Count 229 k/uL (150-450); RDW 14.8 % (11.5-15.5); WBC 11.6 k/uL (3.8-10.6)
[2018-08-02 11:18] VITALS: BMI 41.0
[2018-08-02] MEDS ORDERED: GLYCOPYRROLATE 0.2 MG/ML 2 ML VIAL ONE (11:47)
[2018-08-02] MEDS ORDERED: fentaNYL (PF) 50 MCG/ML 2 ML AMP ONE (11:47)
[2018-08-02] MEDS ORDERED: ePHEDrine SULFATE/0.9% NACL/PF 50 MG/5 ML SYRINGE IV ONE (11:47)
[2018-08-02] MEDS ORDERED: PROPOFOL 10 MG/ML 20 ML VIAL IV ONE (11:47)
[2018-08-02] MEDS ORDERED: MIDAZOLAM 2 MG/2 ML VIAL ONE (11:47)
[2018-08-02] MEDS ORDERED: LIDOCAINE 1% INJ 10MG/ML (20 ML MDV) ONE (11:47)
[2018-08-02] MEDS ORDERED: NEOSTIGMINE 1 MG/ML 10 ML VIAL ONE (11:47)
[2018-08-02] MEDS ORDERED: HYDROmorphone (PF) 1 MG/ML ONE (11:47)
[2018-08-02] MEDS ORDERED: SUCCINYLCHOLINE CHLORIDE 100 MG/5 ML SYR IV ONE (11:47)
[2018-08-02] MEDS ORDERED: ROCURONIUM BROMIDE 10 MG/ML 10 ML VIAL IV ONE (11:47)
[2018-08-02] MEDS ORDERED: PHENYLEPHRINE-0.9% NACL SYG 1 MG/10 ML SYRINGE ONE (11:47)
[2018-08-02 12:01] LABS: African American GFR (CKD) >90 (>60 ml/min/1.73 sqM); Anion Gap 11 mmol/L; Blood Urea Nitrogen 13 mg/dL (9-20); Calcium 9.7 mg/dL (8.4-10.2); Carbon Dioxide 23 mmol/L (22-30); Chloride 105 mmol/L (98-107); Magnesium 2.2 mg/dL (1.6-2.3); Phosphorus 3.5 mg/dL (2.5-4.5); Potassium 4.3 mmol/L (3.5-5.1); Sodium 139 mmol/L (137-145)
--- NOTE | 2018-08-02 23:20 | P.DS ---
Providers Date of admission: 08/01/18 10:01 Expected date of discharge: 08/02/18 Attending physician: Ximena Caro Primary care physician: Mekhi Tam Plan - Discharge Summary Discharge Rx Participant: Yes New Discharge Prescriptions: New Bisacodyl [Dulcolax] 5 mg PO DAILY PRN #10 tablet. PRN Reason: Constipation Simethicone 40 mg/0.6 ml Drops [Mylicon Drops] 40 mg PO PCHS PRN #30 ml PRN Reason: Gas Ondansetron Odt [Zofran Odt] 4 mg PO Q8HR PRN #9 tab PRN Reason: Nausea Ibuprofen [Motrin] 600 mg PO Q8HR PRN #15 tab PRN Reason: Pain Ranitidine HCl [Zantac] 150 mg PO BID #60 tab HYDROcodone/APAP [[employer] Elixir 7.5-325Mg/15Ml] 15 ml PO Q6H PRN #180 solution PRN Reason: Pain Discharge Medication List Bisacodyl [Dulcolax] 5 mg PO DAILY PRN #10 tablet. 08/01/18 [Rx] HYDROcodone/APAP [[employer] Elixir 7.5-325Mg/15Ml] 15 ml PO Q6H PRN #180 solution 08/01/18 [Rx] Ibuprofen [Motrin] 600 mg PO Q8HR PRN #15 tab 08/01/18 [Rx] Ondansetron Odt [Zofran Odt] 4 mg PO Q8HR PRN #9 tab 08/01/18 [Rx] Ranitidine HCl [Zantac] 150 mg PO BID #60 tab 08/01/18 [Rx] Simethicone 40 mg/0.6 ml Drops [Mylicon Drops] 40 mg PO PCHS PRN #30 ml 08/01/18 [Rx] Follow up Appointment(s)/Referral(s): [facility],. [NON-STAFF] - 08/05/18 10:00 am Patient Instructions/Handouts: Nutrition after Bariatric Surgery (DC), Laparoscopic Sleeve Gastrectomy (DC) Activity/Diet/Wound Care/Special Instructions: NO lifting over 4 pounds in 4 weeks, August 29. May shower. No bathtub soaks until August 15. Dressings to be removed by your doctor in the office. Drink 64 oz of fluid daily. Start protein shakes on . Notify bariatric center for temp over 101.0, increased pain, drainage from incisions. No straws or carbonated beverages. Liquid diet only. Sugar content should be less than 6 g to avoid dumping syndrome. Take MOM for constipation. CRUSH, OPEN, OR CUT TABLETS LARGER THAN A SIZE OF A TIC TAC Discharge Disposition: HOME SELF-CARE
== END 2018-08-02 13:03 | disposition home or self-care (01) | DRG 621 ==
LOC: 2ORMAIN 10:01 → 4SSUR 16:17
PROVIDERS: ADMIT Surgery Plastic and Reconstructive Surgery; ATTEND Surgery Plastic and Reconstructive Surgery
PROC: 8E0W4CZ Robotic Assisted Procedure of Trunk Region, Percutaneous Endoscopic Approach (ICD-10-PCS; 2018-08-01)
PROC: 0DJ08ZZ Inspection of Upper Intestinal Tract, Via Natural or Artificial Opening Endoscopic (ICD-10-PCS; 2018-08-01)
PROC: 0DB64Z3 Excision of Stomach, Percutaneous Endoscopic Approach, Vertical (ICD-10-PCS; principal; 2018-08-01 11:30)
DX: E66.01 Morbid (severe) obesity due to excess calories (principal); G47.33 Obstructive sleep apnea (adult) (pediatric); I11.9 Hypertensive heart disease without heart failure; K21.9 Gastro-esophageal reflux disease without esophagitis; M16.0 Bilateral primary osteoarthritis of hip; M17.0 Bilateral primary osteoarthritis of knee; M19.011 Primary osteoarthritis, right shoulder; M47.9 Spondylosis, unspecified; M19.072 Primary osteoarthritis, left ankle and foot; M19.071 Primary osteoarthritis, right ankle and foot; Z68.41 Body mass index [BMI] 40.0-44.9, adult; Z82.49 Family history of ischemic heart disease and other diseases of the circulatory system; Z83.3 Family history of diabetes mellitus; M89.8X9 Other specified disorders of bone, unspecified site
CPT/HCPCS: 74240; 80051; 82310; 82565; 83735; 84100; 84520; 85025; 86850; 86900; 86901; 88307; 94760

== ENCOUNTER → 2018-08-05 | Outpatient (CLI) | payer BC ==
[2018-08-05 10:38] VITALS: BP 128/80; PULSE 90; TEMP 98.1; BMI 40.4
--- NOTE | 2018-08-05 10:57 | P.PN ---
Subjective Progress Note Date: 08/05/18 DATE OF SERVICE: 08/05/2018 CHIEF COMPLAINT: Status post sleeve gastrectomy HISTORY OF PRESENT ILLNESS: Joey Chaney is a 48-year-old male status post sleeve gastrectomy, 08/01/2018. He is POD 4. He is doing well. No reports of gastroesophageal reflux disease following his sleeve gastrectomy. He had transient pain pre-existing bone pain of the forearm that resolved with ibuprofen and ice. He is tolerating liquids. At his height of 5 foot 8.75 inches, his ideal body weight is 163 pounds. He had weighed 319 pounds. Today, he comes in weighing 269 pounds from 279 pounds, 9 days ago. He has lost 10 pounds in 9 days. Body mass index was 47.6 now down to 40.2. He is 106 pounds overweight. Lifetime weight loss of 50 pounds. Percent excess weight loss of 32% lifetime. PHYSICAL EXAM: VITAL SIGNS: Height 5 foot 8.75 inches, weight 269 pounds. BMI 40.2 Vital Signs Temp 98.1 F 08/05/18 10:33 Pulse 90 08/05/18 10:33 Resp BP 128/80 08/05/18 10:33 Pulse Ox GENERAL: Well-developed in no acute distress. HEENT: No scleral icterus. Extraocular movements grossly intact. Hears conversational speech. No nasal drainage. NECK: Supple without lymphadenopathy. CHEST: Nonlabored respirations with equal bilateral excursions. CARDIOVASCULAR: Regular rate and regular rhythm. Distal 2+ pulses. ABDOMEN: Soft, nontender. No infection. Incisions are clean, dry, and intact. Dressing removed. MUSCULOSKELETAL: No clubbing, cyanosis. NEURO: No focal or lateralizing signs. Cranial nerves 2 through 12 grossly within normal limits. PSYCH: Appropriate affect. Alert and oriented to person, place and time. SKIN: Good skin turgor. Well perfused. ASSESSMENT: 1. Morbid obesity. 2. Body mass index of 47.0 to 41.6 3. Osteoarthritis of the knees. 4. Osteoarthritis of the hips. 5. Osteoarthritis of the lower back. 6. Obstructive sleep apnea. 7. Hypertensive heart disease. 8. Osteoarthritis of the ankles. 9. Gastroesophageal reflux disease. 10. Post-operative bone pain. 11. Status post sleeve gastrectomy PLAN: 1. Will follow up next week. 2. Start stage II diet with protein shakes. 3. Walking encouraged Objective - Vital Signs Vital signs: Vital Signs Temp 98.1 F 08/05/18 10:33 Pulse 90 08/05/18 10:33 Resp BP 128/80 08/05/18 10:33 Pulse Ox Intake & Output 08/04/18 08/05/18 08/05/18 18:59 06:59 18:59 Weight 122.47 kg
== END | disposition home or self-care (01) ==
LOC: BARWHC3 09:55
PROVIDERS: ATTEND Surgery Plastic and Reconstructive Surgery
DX: Z48.815 Encounter for surgical aftercare following surgery on the digestive system (principal); E66.01 Morbid (severe) obesity due to excess calories; M17.0 Bilateral primary osteoarthritis of knee; M16.0 Bilateral primary osteoarthritis of hip; M19.90 Unspecified osteoarthritis, unspecified site; G47.33 Obstructive sleep apnea (adult) (pediatric); I11.9 Hypertensive heart disease without heart failure; K21.9 Gastro-esophageal reflux disease without esophagitis; G89.18 Other acute postprocedural pain; Z98.84 Bariatric surgery status; Z68.41 Body mass index [BMI] 40.0-44.9, adult
CPT/HCPCS: 99211

== ENCOUNTER → 2018-08-10 | Outpatient (CLI) | payer BC ==
[2018-08-10 12:26] VITALS: BP 120/78; PULSE 87; TEMP 97.5; BMI 39.6
--- NOTE | 2018-08-10 12:48 | P.PN ---
Subjective Progress Note Date: 08/10/18 No vomiting. He reports fatigue. No GERD. No fevers or chills. He is 2 weeks out. He is averaging over 75 grams. Objective - Vital Signs Vital signs: Vital Signs Temp 97.5 F L 08/10/18 12:15 Pulse 87 08/10/18 12:15 Resp BP 120/78 08/10/18 12:15 Pulse Ox Intake & Output 08/09/18 08/10/18 08/10/18 18:59 06:59 18:59 Weight 121.109 kg
== END | disposition home or self-care (01) ==
LOC: BARWHC3 12:06
PROVIDERS: ATTEND Surgery Plastic and Reconstructive Surgery
DX: E66.01 Morbid (severe) obesity due to excess calories (principal); Z68.39 Body mass index [BMI] 39.0-39.9, adult
CPT/HCPCS: 97803; 99211

== ENCOUNTER → 2018-08-31 | Outpatient (CLI) | payer BC ==
[2018-08-31 13:21] VITALS: BP 109/65; PULSE 63; RESP 16; TEMP 98.3; BMI 38.2
--- NOTE | 2018-08-31 14:09 | P.PN ---
Subjective Progress Note Date: 08/31/18 HPI: He is doing very well. He has right inguinal hernia. He reports a hydrocele of the right groin. ABDOMEN: No hernia. PLAN: 1. Labs today 2. Hernia repair of right groin deferred. 3. Follow up in Sept Objective - Vital Signs Vital signs: Vital Signs Temp 98.3 F 08/31/18 13:19 Pulse 63 08/31/18 13:19 Resp 16 08/31/18 13:19 BP 109/65 08/31/18 13:19 Pulse Ox Intake & Output 08/30/18 08/31/18 08/31/18 18:59 06:59 18:59 Weight 116.573 kg
== END ==
LOC: BARWHC3 13:02
PROVIDERS: ATTEND Surgery Plastic and Reconstructive Surgery
DX: N43.3 Hydrocele, unspecified (principal)
CPT/HCPCS: 99211

== ENCOUNTER → 2018-10-28 | Outpatient (CLI) | payer BC ==
[2018-10-28 07:58] LABS: INR 0.9 (<1.2); Partial Thromboplastin Time 27.3 sec (22.0-30.0); Prothrombin Time 10.2 sec (9.0-12.0)
[2018-10-28 10:35] LABS: HCT 42.8 % (39.0-53.0); HGB 14.3 gm/dL (13.0-17.5); MCHC 33.4 g/dL (31.0-37.0); MCV 95.7 fL (80.0-100.0); Mean Platelet Volume 10.4; Platelet Count 166 k/uL (150-450); RBC 4.47 m/uL (4.30-5.90); RDW 14.4 % (11.5-15.5)
[2018-10-28 11:52] LABS: Chol/HDL Ratio 3.53; LDL Cholesterol,Calculated 95.8 mg/dL (0.0-131.0); VLDL Calculation 13.2 mg/dL (5.00-40.00)
[2018-10-28 11:53] LABS: African American GFR (CKD) 120.7 (60.0-200.0); Albumin 4.3 g/dL (3.80-4.90); Albumin/Globulin Ratio 2.15 (1.60-3.17); Anion Gap 7.3 mmol/L (4.00-12.00); BUN/Creat Ratio 16.25 Ratio (12.00-20.00); Calcium 9.7 mg/dL (8.7-10.3); Carbon Dioxide 27.7 mmol/L (21.6-31.8); Iron Saturation 29.9 (15.00-50.00); Magnesium 2.1 mg/dL (1.5-2.4); Total Protein 6.3 g/dL (6.2-8.2)
[2018-10-28 12:03] LABS: Vitamin D 25 Hydroxy 28.5 ng/mL (30.0-100.0)
[2018-10-28 12:40] LABS: Folate, Serum 14.6 ng/mL
[2018-10-28 14:26] LABS: Hemoglobin A1C 4.9 % (4.0-6.0)
[2018-10-31 15:06] LABS: Zinc, Serum 78 ug/dL (60-130)
[2018-11-01 06:33] LABS: Vitamin A 36 ug/dL (38-106)
== END | disposition home or self-care (01) ==
LOC: LABWHC1 07:26
PROVIDERS: ATTEND Surgery Plastic and Reconstructive Surgery
DX: E66.01 Morbid (severe) obesity due to excess calories (principal); E21.1 Secondary hyperparathyroidism, not elsewhere classified; E89.1 Postprocedural hypoinsulinemia; D50.9 Iron deficiency anemia, unspecified; E44.0 Moderate protein-calorie malnutrition; E55.9 Vitamin D deficiency, unspecified; K74.1 Hepatic sclerosis; N19 Unspecified kidney failure; K50.90 Crohn's disease, unspecified, without complications
CPT/HCPCS: 36415; 80053; 80061; 82306; 82525; 82607; 82728; 82746; 83036; 83540; 83550; 83735; 83970; 84100; 84134; 84255; 84425; 84443; 84590; 84630; 85027; 85610; 85730

== ENCOUNTER → 2018-11-09 | Outpatient (CLI) | payer BC ==
[2018-11-09 13:33] VITALS: BP 141/80; PULSE 61; RESP 16; TEMP 98; BMI 34.8
--- NOTE | 2018-11-09 14:01 | P.PN ---
Subjective Progress Note Date: 11/09/18 DATE OF SERVICE: 11/09/2018 CHIEF COMPLAINT: Status post sleeve gastrectomy HISTORY OF PRESENT ILLNESS: Joey Chaney is a 48-year-old male status post sleeve gastrectomy, 08/01/2018. He is 3 months out. No reports of gastroesophageal reflux disease. He is able to eat beef which he could not tole rate prior to his bariatric procedure. His food allergies has improved. At his height of 5 foot 8.75 inches, his ideal body weight is 163 pounds. He had weighed 319 pounds. Today, he comes in weighing 234 pounds from 256 pounds, 3 months out. He has lost 23 pounds in 2 months since his last visit. Body mass index was 47.6 now down to 34.8. Lifetime weight loss of 85 pounds. Percent excess weight loss of 55 % lifetime. PHYSICAL EXAM: VITAL SIGNS: Height 5 foot 8.75 inches, weight 234 pounds. BMI 34.8 Vital Signs Temp 98 F 11/09/18 13:30 Pulse 61 11/09/18 13:30 Resp 16 11/09/18 13:30 BP 141/80 11/09/18 13:30 Pulse Ox GENERAL: Well-developed in no acute distress. HEENT: No scleral icterus. Extraocular movements grossly intact. Hears conversational speech. No nasal drainage. NECK: Supple without lymphadenopathy. CHEST: Nonlabored respirations with equal bilateral excursions. CARDIOVASCULAR: Regular rate and regular rhythm. Distal 2+ pulses. ABDOMEN: No infection. Soft, non-tender. No incisional hernia. MUSCULOSKELETAL: No clubbing, cyanosis. NEURO: No focal or lateralizing signs. Cranial nerves 2 through 12 grossly within normal limits. PSYCH: Appropriate affect. Alert and oriented to person, place and time. SKIN: Good skin turgor. Well perfused. ASSESSMENT: 1. Morbid obesity. 2. Body mass index of 47.0 to 34.8 3. Osteoarthritis of the knees. 4. Osteoarthritis of the hips. 5. Osteoarthritis of the lower back. 6. Obstructive sleep apnea. 7. Hypertensive heart disease. 8. Osteoarthritis of the ankles. 9. Gastroesophageal reflux disease. 10. Post-operative bone pain. 11. Status post sleeve gastrectomy PLAN: 1. Recommend bariatric labs 2. Overall, he is doing well. 3. Follow up in 3 months, January 2019 Objective - Vital Signs Vital signs: Vital Signs Temp 98 F 11/09/18 13:30 Pulse 61 11/09/18 13:30 Resp 16 11/09/18 13:30 BP 141/80 11/09/18 13:30 Pulse Ox Intake & Output 11/08/18 11/09/18 11/09/18 18:59 06:59 18:59 Weight 106.141 kg
== END ==
LOC: BARWHC3 12:58
PROVIDERS: ATTEND Surgery Plastic and Reconstructive Surgery
DX: Z48.815 Encounter for surgical aftercare following surgery on the digestive system (principal); E66.01 Morbid (severe) obesity due to excess calories; M17.0 Bilateral primary osteoarthritis of knee; M16.0 Bilateral primary osteoarthritis of hip; G47.33 Obstructive sleep apnea (adult) (pediatric); I11.9 Hypertensive heart disease without heart failure; M19.079 Primary osteoarthritis, unspecified ankle and foot; K21.9 Gastro-esophageal reflux disease without esophagitis; G89.18 Other acute postprocedural pain; Z98.84 Bariatric surgery status; Z68.34 Body mass index [BMI] 34.0-34.9, adult
CPT/HCPCS: 99211

== ENCOUNTER → 2019-02-06 | Outpatient (CLI) | payer BC ==
[2019-02-06 09:21] LABS: HCT 42.3 % (39.0-53.0); HGB 14.3 gm/dL (13.0-17.5); MCH 32.4 pg (25.0-35.0); MCHC 33.8 g/dL (31.0-37.0); MCV 95.7 fL (80.0-100.0); Mean Platelet Volume 9.4; Platelet Count 178 k/uL (150-450); RBC 4.42 m/uL (4.30-5.90); RDW 12.5 % (11.5-15.5); WBC 4.5 k/uL (3.8-10.6)
[2019-02-06 09:26] LABS: INR 0.9 (<1.2); Partial Thromboplastin Time 26.3 sec (22.0-30.0)
[2019-02-06 17:21] LABS: % Iron Saturation 36.36 (15.00-50.00); African American GFR (CKD) 120.7 (60.0-200.0); Albumin 4.3 g/dL (3.80-4.90); Albumin/Globulin Ratio 2.39 (1.60-3.17); Anion Gap 6.2 mmol/L (4.00-12.00); Calcium 9.5 mg/dL (8.7-10.3); Carbon Dioxide 29.8 mmol/L (21.6-31.8); Chol/HDL Ratio 2.79; Globulin 1.8 g/dL (1.6-3.3); LDL Cholesterol,Calculated 82.8 mg/dL (0.0-131.0); Magnesium 2.2 mg/dL (1.5-2.4); Non-African American GFR(CKD) 104.2 (60.0-200.0); Phosphorus 3.4 mg/dL (2.4-5.1); Total Bilirubin 0.7 mg/dL (0.3-1.2); Total Protein 6.1 g/dL (6.2-8.2); VLDL Calculation 12.2 mg/dL (5.00-40.00)
[2019-02-06 17:36] LABS: Ferritin 192.6 ng/mL (22.0-322.0)
[2019-02-06 17:37] LABS: Folate, Serum 8.1 ng/mL
[2019-02-06 20:28] LABS: Hemoglobin A1C 4.9 % (4.0-6.0)
[2019-02-07 11:20] LABS: Zinc, Serum 56 ug/dL (60-130)
[2019-02-08 06:53] LABS: Vitamin A 46 ug/dL (38-106)
== END | disposition home or self-care (01) ==
LOC: LABWHC1 08:44
PROVIDERS: ATTEND Surgery Plastic and Reconstructive Surgery
DX: E66.01 Morbid (severe) obesity due to excess calories (principal); E21.1 Secondary hyperparathyroidism, not elsewhere classified; E89.1 Postprocedural hypoinsulinemia; D50.9 Iron deficiency anemia, unspecified; K90.9 Intestinal malabsorption, unspecified; E55.9 Vitamin D deficiency, unspecified; K76.9 Liver disease, unspecified; N19 Unspecified kidney failure; K50.90 Crohn's disease, unspecified, without complications
CPT/HCPCS: 36415; 80053; 80061; 82306; 82525; 82607; 82728; 82746; 83036; 83540; 83550; 83735; 83970; 84100; 84134; 84255; 84425; 84443; 84590; 84630; 85027; 85610; 85730

== ENCOUNTER → 2019-02-08 | Outpatient (CLI) | payer BC ==
[2019-02-08 14:18] VITALS: BP 116/69; PULSE 69; RESP 16; TEMP 98.1; BMI 32.1
--- NOTE | 2019-02-08 14:27 | P.PN ---
Subjective Progress Note Date: 02/08/19 DATE OF SERVICE: 02/08/2019 CHIEF COMPLAINT: Status post sleeve gastrectomy HISTORY OF PRESENT ILLNESS: Joey Chaney is a 48-year-old male status post sleeve gastrectomy, 08/01/2018. He is 6 months out. He has lost 100 pounds in 1 year. His personal goal is to get to 175 pounds. He comes in 216 pounds. He is 40 pounds away from his goal. He denies gastroesophageal reflux disease. He is doing very well. He is getting 90 to 100 grams protein daily. At his height of 5 foot 8.75 inches, his ideal body weight is 163 pounds. He had weighed 319 pounds. Today, he comes in weighing 216 pounds from 234 pounds, 3 months out. He has lost 18 pounds in 3 months. Body mass index was 47.6 now down to 32.1. Lifetime weight loss of 103 pounds. Percent excess weight loss of 66 % lifetime. PHYSICAL EXAM: VITAL SIGNS: Height 5 foot 8.75 inches, weight 216 pounds. BMI 32.1 Vital Signs Temp 98.1 F 02/08/19 14:13 Pulse 69 02/08/19 14:13 Resp 16 02/08/19 14:13 BP 116/69 02/08/19 14:13 Pulse Ox GENERAL: Well-developed in no acute distress. HEENT: No scleral icterus. Extraocular movements grossly intact. Hears conversational speech. No nasal drainage. NECK: Supple without lymphadenopathy. CHEST: Nonlabored respirations with equal bilateral excursions. CARDIOVASCULAR: Regular rate and regular rhythm. Distal 2+ pulses. ABDOMEN: No infection. Soft, non-tender. MUSCULOSKELETAL: No clubbing, cyanosis. NEURO: No focal or lateralizing signs. Cranial nerves 2 through 12 grossly within normal limits. PSYCH: Appropriate affect. Alert and oriented to person, place and time. SKIN: Good skin turgor. Well perfused. LABS: Zinc is low. Copper is low. ASSESSMENT: 1. Morbid obesity due to excess calories 2. Body mass index of 47.0 to 32.1 3. Osteoarthritis of the knees. 4. Osteoarthritis of the hips. 5. Osteoarthritis of the lower back. 6. Obstructive sleep apnea. 7. Hypertensive heart disease. 8. Osteoarthritis of the ankles. 9. Status post sleeve gastrectomy PLAN: 1. Bariatric labs reviewed 2. Follow up in 3 months Objective - Vital Signs Vital signs: Vital Signs Temp 98.1 F 02/08/19 14:13 Pulse 69 02/08/19 14:13 Resp 16 02/08/19 14:13 BP 116/69 02/08/19 14:13 Pulse Ox Intake & Output 02/07/19 02/08/19 02/08/19 18:59 06:59 18:59 Weight 97.976 kg
== END | disposition home or self-care (01) ==
LOC: BARWHC3 13:30
PROVIDERS: ATTEND Surgery Plastic and Reconstructive Surgery
DX: Z48.815 Encounter for surgical aftercare following surgery on the digestive system (principal); E66.01 Morbid (severe) obesity due to excess calories; Z68.32 Body mass index [BMI] 32.0-32.9, adult; M17.9 Osteoarthritis of knee, unspecified; M16.9 Osteoarthritis of hip, unspecified; G47.33 Obstructive sleep apnea (adult) (pediatric); I11.9 Hypertensive heart disease without heart failure; M19.079 Primary osteoarthritis, unspecified ankle and foot
CPT/HCPCS: 99211

== ENCOUNTER → 2019-04-20 | Day surgery (SDC) | payer BC ==
[2019-04-17 17:17] VITALS: BMI 30.7
[~2019-04-20] MED LIST changes: -CHLORHEXIDINE GLUCONATE 15 ML CUP MUCOUS MEM ONE; -ENOXAPARIN 40 MG/0.4 ML SYRINGE SQ STA; -FAMOTIDINE 20 MG/2 ML VIAL IV ONE; +LACTATED RINGERS 1,000 ML IV SCH; +LIDOCAINE 1% 20 ML VIAL (10MG/ML) FOR IV START INTRADERMA ONE; +LIDOCAINE 1% INJ 10MG/ML (20 ML MDV) ONE; +PROPOFOL 10 MG/ML 20 ML VIAL IV ONE; -ceFAZolin 3 GM in SODIUM CHLORIDE 0.9% 100 ML IVPB ONE
[2019-04-20 07:11] VITALS: RESP 16; TEMP 97.6
--- NOTE | 2019-04-20 07:39 | P.GSHP ---
History of Present Illness H&P Date: 04/20/19 CHIEF COMPLAINT: Colon screen HISTORY OF PRESENT ILLNESS: The patient is a 49-year-old male who presents for colon screen. Lower endoscopy was offered for further evaluation and management. PAST MEDICAL HISTORY: Please see list. PAST SURGICAL HISTORY: Please see list. MEDICATIONS: Please see list. ALLERGIES: Please see list. SOCIAL HISTORY: No illicit drug use FAMILY HISTORY: No reports of Crohn disease or ulcerative colitis. REVIEW OF ORGAN SYSTEMS: CONSTITUTIONAL: No reports of fevers or chills. PHYSICAL EXAM: VITAL SIGNS: Stable GENERAL: Well-developed pleasant in no acute distress. HEENT: No scleral icterus. Extraocular movements grossly intact. Moist buccal mucosa. NECK: Supple without lymphadenopathy. CHEST: Unlabored respirations. Equal bilateral excursions. CARDIOVASCULAR: Regular rate and rhythm. Distal 2+ pulses. ABDOMEN: Soft, nontender, nondistended. MUSCULOSKELETAL: No clubbing, cyanosis, or edema. ASSESSMENT: 1. Colon screen. PLAN: 1. Recommend proceeding with a lower endoscopy Past Medical History Past Medical History: GERD/Reflux, Hypertension, Osteoarthritis (OA), Sleep Apnea/CPAP/BIPAP Additional Past Medical History / Comment(s): Hiatal hernia w/ surgery, hx HTN & CRISTELA off Rx w/ wgt loss, arthritis bilateral knees, hips, ankles, low back and R shoulder, CRISTELA with Cpap, Hpylori x2, iron deficiency, vitamin D deficiency, sinus problems in the past, mutliple food allergies. History of Any Multi-Drug Resistant Organisms: None Reported Past Surgical History: Bariatric Surgery, Cholecystectomy, Hernia Repair, Ton sillectomy Additional Past Surgical History / Comment(s): 12/20/17 Maddy Fudoplication, EGD, septoplasty/sinuplasty, deviated septum surgery, vasectomy, circumcision, 12/20/17 Hiatal hernia repair, 02/07/18 cholecystectomy, sleeve gastrectomy 08-01-18 ([facility]) Past Anesthesia/Blood Transfusion Reactions: Previous Problems w/ Anesthesia, Motion Sickness Additional Past Anesthesia/Blood Transfusion Reaction / Comment(s): Difficulty/slow waking up Smoking Status: Never smoker - Past Family History Mother Family Medical History: No Reported History Father Family Medical History: Diabetes Mellitus, Hypertension Additional Family Medical History / Comment(s): Type 2 DM, Brother(s) Family Medical History: Pulmonary Embolus Additional Family Medical History / Comment(s): PE caused Medications and Allergies Home Medications Medication Instructions Recorded Confirmed Type Copper-Zinc 1 tab PO DAILY 04/17/19 04/20/19 History Cyanocobalamin (Vitamin B-12) 5,000 mcg PO DAILY 04/17/19 04/20/19 History [Vitamin B-12] Multivitamins, Thera [Multivitamin 1 tab PO DAILY 04/17/19 04/20/19 History (formulary)] Allergies Allergy/AdvReac Type Severity Reaction Status Date / Time corn Allergy Anaphylaxis Verified 04/20/19 07:13 lactose Allergy Diarrhea Verified 04/20/19 07:13 peas Allergy Anaphylaxis Verified 04/20/19 07:13 pollen extracts Allergy Rash/Hives Verified 04/20/19 07:13 Poultry Allergy Anaphylaxis Verified 04/20/19 07:13 tuna oil Allergy Anaphylaxis Verified 04/20/19 07:13 omeprazole AdvReac Severe "BONE PAIN" Verified 04/20/19 07:13 pantoprazole [From Protonix] AdvReac Severe forearms Verified 04/20/19 07:13 swollen & red,warm adhesive AdvReac Rash/Hives Verified 04/20/19 07:13 tuna Allergy Anaphylaxis Uncoded 04/20/19 07:13 Surgical - Exam Vital Signs Temp Pulse Resp BP Pulse Ox 97.6 F 60 16 105/59 100 04/20/19 07:04 04/20/19 07:04 04/20/19 07:04 04/20/19 07:04 04/20/19 07:04
--- NOTE | 2019-04-20 08:01 | P.PCN ---
Date of Procedure: 04/20/19 Description of Procedure: PREOPERATIVE DIAGNOSIS: Colonoscopy screening, initial POSTOPERATIVE DIAGNOSIS: Colonoscopy screening, initial Tubular adenoma ascending colon Tubular adenoma sigmoid colon OPERATION: Colonoscopy to the ileocecal valve and appendiceal orifice. Colonoscopy with multiple hot snare polypectomies SURGEON: Ximena Caro MD. ANESTHESIA: MAC. INDICATIONS: The patient is an 49-year-old male who presents for his first colonoscopy screening. Benefits and risks were described and informed consent was obtained. DESCRIPTION OF PROCEDURE: The patient had undergone Suprep. He had been brought into the operating room and laid in the left lateral decubitus position. After adequate intravenous sedation, the rectum was examined with 2% lidocaine jelly. The prostate fossa was unremarkable. No external hemorrhoids were encountered. The rectal tone was within normal limits. No lesions were palpated in the rectal vault. An Olympus colonoscope was advanced until the ileocecal valve and appendiceal orifice were clearly viewed. The prep was fair. No sigmoid diverticulosis was encountered. Multiple colonic polyps were found and snare polypectomy. No evidence of focal colitis was found. Retroflexion of the scope demonstrated no internal hemorrhoids. The colon was desufflated. The patient had tolerated the procedure well. Withdrawal time was over 6 minutes. FINDINGS: Aronchick preparation quality scale 1 (1-5) No internal hemorrhoids No external hemorrhoids No arteriovenous malformations. No sigmoid diverticulosis Removal of 2 polyps from the proximal, mid transverse colon and descending colon: - Snare polypectomy ascending colon, 5 mm tubulovillous adenoma polyp. - Snare polypectomy 30 cm from the anal verge, 8 mm flat villous adenoma polyp. No focal colitis. RECOMMENDATIONS: Repeat colonoscopy in 3 years, 2022 Plan - Discharge Summary Discharge Rx Participant: No New Discharge Prescriptions: Continue Multivitamins, Thera [Multivitamin (formulary)] 1 tab PO DAILY Cyanocobalamin (Vitamin B-12) [Vitamin B-12] 5,000 mcg PO DAILY Copper-Zinc 1 tab PO DAILY Discharge Medication List Copper-Zinc 1 tab PO DAILY 04/17/19 [History] Cyanocobalamin (Vitamin B-12) [Vitamin B-12] 5,000 mcg PO DAILY 04/17/19 [History] Multivitamins, Thera [Multivitamin (formulary)] 1 tab PO DAILY 04/17/19 [History] Follow up Appointment(s)/Referral(s): Ximena Caro MD [STAFF PHYSICIAN] - As Needed Patient Instructions/Handouts: Colorectal Polyps (GEN) Activity/Diet/Wound Care/Special Instructions: Repeat colonoscopy 3 years, 2022 Discharge Disposition: HOME SELF-CARE
[2019-04-20 08:11] VITALS: BP 123/75; PULSE 64
== END | disposition home or self-care (01) ==
LOC: ORWHC2ENDO 06:46
PROVIDERS: ATTEND Surgery Plastic and Reconstructive Surgery
DX: Z12.11 Encounter for screening for malignant neoplasm of colon (principal); D12.5 Benign neoplasm of sigmoid colon; K63.5 Polyp of colon; I10 Essential (primary) hypertension; G47.33 Obstructive sleep apnea (adult) (pediatric); K21.9 Gastro-esophageal reflux disease without esophagitis; E55.9 Vitamin D deficiency, unspecified; M17.0 Bilateral primary osteoarthritis of knee; M16.0 Bilateral primary osteoarthritis of hip; M19.011 Primary osteoarthritis, right shoulder; M19.071 Primary osteoarthritis, right ankle and foot; M19.072 Primary osteoarthritis, left ankle and foot; Z79.899 Other long term (current) drug therapy; Z88.8 Allergy status to other drugs, medicaments and biological substances; Z91.09 Other allergy status, other than to drugs and biological substances; Z91.013 Allergy to seafood; Z91.011 Allergy to milk products; Z91.018 Allergy to other foods; Z91.048 Other nonmedicinal substance allergy status; Z87.19 Personal history of other diseases of the digestive system; Z90.49 Acquired absence of other specified parts of digestive tract; Z98.84 Bariatric surgery status; Z90.89 Acquired absence of other organs; Z98.52 Vasectomy status; Z83.3 Family history of diabetes mellitus; Z82.49 Family history of ischemic heart disease and other diseases of the circulatory system
CPT/HCPCS: 88305; 45385; J2001; J2704

== ENCOUNTER → 2019-07-24 | Outpatient (CLI) | payer BC ==
[2019-07-24 11:12] LABS: HGB 13.6 gm/dL (13.0-17.5); MCH 33.4 pg (25.0-35.0); MCHC 33.9 g/dL (31.0-37.0); MCV 98.6 fL (80.0-100.0); Mean Platelet Volume 9.3; Platelet Count 158 k/uL (150-450); RBC 4.06 m/uL (4.30-5.90); RDW 12.5 % (11.5-15.5); WBC 4.9 k/uL (3.8-10.6)
[2019-07-24 11:14] LABS: Partial Thromboplastin Time 25.4 sec (22.0-30.0); Prothrombin Time 10.1 sec (9.0-12.0)
[2019-07-24 17:28] LABS: % Iron Saturation 20.94 (15.00-50.00); African American GFR (CKD) 119.9 (60.0-200.0); Anion Gap 6.7 mmol/L (4.00-12.00); BUN/Creat Ratio 21.25 Ratio (12.00-20.00); Calcium 9.1 mg/dL (8.7-10.3); Carbon Dioxide 30.3 mmol/L (21.6-31.8); Chol/HDL Ratio 2.88; Non-African American GFR(CKD) 103.4 (60.0-200.0); Phosphorus 3.4 mg/dL (2.4-5.1); Potassium 4.2 mmol/L (3.5-5.5); Total Bilirubin 0.8 mg/dL (0.3-1.2)
[2019-07-24 17:44] LABS: Folate, Serum 10.4 ng/mL
[2019-07-24 18:20] LABS: Hemoglobin A1C 4.8 % (4.0-6.0)
[2019-07-26 07:30] LABS: Vitamin A 38 ug/dL (38-106)
[2019-07-26 08:46] LABS: Vit B1(Thiamine) 46 ug/L (38-122)
== END | disposition home or self-care (01) ==
LOC: LABWHC1 08:59
PROVIDERS: ATTEND Surgery Plastic and Reconstructive Surgery
DX: E21.1 Secondary hyperparathyroidism, not elsewhere classified (principal); E89.1 Postprocedural hypoinsulinemia; D50.9 Iron deficiency anemia, unspecified; K90.9 Intestinal malabsorption, unspecified; E55.9 Vitamin D deficiency, unspecified; K74.1 Hepatic sclerosis; N19 Unspecified kidney failure; K50.90 Crohn's disease, unspecified, without complications
CPT/HCPCS: 36415; 80053; 80061; 82306; 82525; 82607; 82728; 82746; 83036; 83540; 83550; 83735; 83970; 84100; 84134; 84255; 84425; 84443; 84590; 84630; 85027; 85610; 85730

== ENCOUNTER → 2019-08-02 | Outpatient (CLI) | payer BC ==
[2019-08-02 15:15] VITALS: BP 102/65; PULSE 49; RESP 16; TEMP 97.8; BMI 29.1
--- NOTE | 2019-09-01 21:10 | P.PN ---
Subjective Progress Note Date: 08/02/19 DATE OF SERVICE: 08/02/2019 CHIEF COMPLAINT: Status post sleeve gastrectomy HISTORY OF PRESENT ILLNESS: Joey Chaney is a 49-year-old male status post sleeve gastrectomy, 08/01/2018. He is 1 year out. He has lost 130 pounds. He can finally eat fatty foods including almonte. He denies any gastroesophageal reflux disease. He completed his bariatric labs. He completed his colonoscopy without sequela. At his height of 5 foot 8.75 inches, his ideal body weight is 163 pounds. He had weighed 319 pounds. Today, he comes in weighing 196 pounds from 216 pounds, 6 months ago. He has lost 20 pounds in 6 months. Body mass index was 47.6 now down to 29.2. Lifetime weight loss of 123 pounds. Percent excess weight loss of 79 % lifetime. PHYSICAL EXAM: VITAL SIGNS: Height 5 foot 8.75 inches, weight 196 pounds. BMI 29.2 Vital Signs Temp 97.8 F 08/02/19 15:12 Pulse 49 L 08/02/19 15:12 Resp 16 08/02/19 15:12 BP 102/65 08/02/19 15:12 Pulse Ox GENERAL: Well-developed in no acute distress. HEENT: No scleral icterus. Extraocular movements grossly intact. Hears conversational speech. No nasal drainage. NECK: Supple without lymphadenopathy. CHEST: Nonlabored respirations with equal bilateral excursions. CARDIOVASCULAR: Regular rate and regular rhythm. Distal 2+ pulses. ABDOMEN: No infection. Soft, non-tender. MUSCULOSKELETAL: No clubbing, cyanosis. NEURO: No focal or lateralizing signs. Cranial nerves 2 through 12 grossly within normal limits. PSYCH: Appropriate affect. Alert and oriented to person, place and time. SKIN: Good skin turgor. Well perfused. LABS: Iron is low. Total protein is low. Vitamin D is low. Copper is low. ASSESSMENT: 1. Morbid obesity due to excess calories 2. Body mass index of 47.0 to 29.2 3. Osteoarthritis of the knees. 4. Osteoarthritis of the hips. 5. Osteoarthritis of the lower back. 6. Obstructive sleep apnea. 7. Hypertensive heart disease. 8. Osteoarthritis of the ankles. 9. Status post sleeve gastrectomy PLAN: 1. Recommend increase iron, copper, vitamin D. 2. Recommend alternative multivitamin for coverage of nutritional needs. 3. Follow-up yearly. Objective - Vital Signs Vital signs: Vital Signs Temp 97.8 F 08/02/19 15:12 Pulse 49 L 08/02/19 15:12 Resp 16 08/02/19 15:12 BP 102/65 08/02/19 15:12 Pulse Ox
== END | disposition home or self-care (01) ==
LOC: BARWHC3 15:00
PROVIDERS: ATTEND Surgery Plastic and Reconstructive Surgery
DX: E66.01 Morbid (severe) obesity due to excess calories (principal); Z68.29 Body mass index [BMI] 29.0-29.9, adult; M17.10 Unilateral primary osteoarthritis, unspecified knee; M16.10 Unilateral primary osteoarthritis, unspecified hip; M19.079 Primary osteoarthritis, unspecified ankle and foot; M47.816 Spondylosis without myelopathy or radiculopathy, lumbar region; G47.33 Obstructive sleep apnea (adult) (pediatric); I11.9 Hypertensive heart disease without heart failure; Z98.84 Bariatric surgery status
CPT/HCPCS: 99211

== ENCOUNTER 2019-12-12 19:36 | Emergency (ER) | payer BC ==
--- NOTE | 2019-12-12 20:35 | ED ---
General Adult HPI - General Chief complaint: Extremity Injury, Lower Stated complaint: L Leg Pain/ Swelling Time Seen by Provider: 12/12/19 19:52 Source: patient, family, RN notes reviewed Mode of arrival: wheelchair Limitations: no limitations - History of Present Illness Initial comments: 49-year-old male presents to the emergency room for the chief complaint of leg pain. Patient reports that 4 days ago he fell about 3 feet off of a ladder injuring the left knee. States he had pain in the anterior and posterior knee. However yesterday started to have some pain in the calf. States that Is tender and swollen. Patient went to urgent care and they recommended an ultrasound to rule out a blood clot. Patient has no other complaints at this time including shortness of breath, chest pain, abdominal pain, nausea or vomiting, headache, or visual changes. - Related Data Home Medications Medication Instructions Recorded Confirmed Copper-Zinc 1 tab PO DAILY 04/17/19 04/20/19 Cyanocobalamin (Vitamin B-12) 5,000 mcg PO DAILY 04/17/19 04/20/19 [Vitamin B-12] Multivitamins, Thera [Multivitamin 1 tab PO DAILY 04/17/19 04/20/19 (formulary)] Allergies Allergy/AdvReac Type Severity Reaction Status Date / Time corn Allergy Anaphylaxis Verified 12/12/19 19:51 lactose Allergy Diarrhea Verified 12/12/19 19:51 peas Allergy Anaphylaxis Verified 12/12/19 19:51 pollen extracts Allergy Rash/Hives Verified 12/12/19 19:51 Poultry Allergy Anaphylaxis Verified 12/12/19 19:51 tuna oil Allergy Anaphylaxis Verified 12/12/19 19:51 omeprazole AdvReac Severe "BONE PAIN" Verified 12/12/19 19:51 pantoprazole [From Protonix] AdvReac Severe forearms Verified 12/12/19 19:51 swollen & red,warm adhesive AdvReac Rash/Hives Verified 12/12/19 19:51 tuna Allergy Anaphylaxis Uncoded 12/12/19 19:51 Review of Systems ROS Statement: Those systems with pertinent positive or pertinent negative responses have been documented in the HPI. ROS Other: All systems not noted in ROS Statement are negative. Past Medical History Past Medical History: GERD/Reflux, Hypertension, Osteoarthritis (OA), Sleep Apnea/CPAP/BIPAP Additional Past Medical History / Comment(s): Hiatal hernia w/ surgery, hx HTN & CRISTELA off Rx w/ wgt loss, arthritis bilateral knees, hips, ankles, low back and R shoulder, CRISTELA with Cpap, Hpylori x2, iron deficiency, vitamin D deficiency, sinus problems in the past, mutliple food allergies. History of Any Multi-Drug Resistant Organisms: None Reported Past Surgical History: Bariatric Surgery, Cholecystectomy, Hernia Repair, Tonsillectomy Additional Past Surgical History / Comment(s): 12/20/17 Maddy Fudoplication, EGD, septoplasty/sinuplasty, deviated septum surgery, vasectomy, circumcision, 12/20/17 Hiatal hernia repair, 02/07/18 cholecystectomy, sleeve gastrectomy 08-01-18 ([facility]) Past Anesthesia/Blood Transfusion Reactions: Previous Problems w/ Anesthesia, Motion Sickness Additional Past Anesthesia/Blood Transfusion Reaction / Comment(s): Difficulty/slow waking up Past Psychological History: No Psychological Hx Reported Smoking Status: Never smoker Past Alcohol Use History: None Reported Past Drug Use History: None Reported - Past Family History Mother Family Medical History: No Reported History Father Family Medical History: Diabetes Mellitus, Hypertension Additional Family Medical History / Comment(s): Type 2 DM, Brother(s) Family Medical History: Pulmonary Embolus Additional Family Medical History / Comment(s): PE caused General Exam Limitations: no limitations General appearance: alert, in no apparent distress Head exam: Present: atraumatic Eye exam: Present: normal appearance, PERRL, EOMI. Absent: scleral icterus, conjunctival injection, periorbital swelling ENT exam: Present: normal exam, mucous membranes moist Neck exam: Present: normal inspection, full ROM. Absent: tenderness, meningismus, lymphadenopathy Respiratory exam: Present: normal lung sounds bilaterally. Absent: respiratory distress, wheezes, rales, rhonchi, stridor Cardiovascular Exam: Present: regular rate, normal rhythm, normal heart sounds. Absent: systolic murmur, diastolic murmur, rubs, gallop, clicks GI/Abdominal exam: Present: soft, normal bowel sounds. Absent: distended, tenderness, guarding, rebound, rigid Extremities exam: Present: full ROM (Full range of motion of the left ankle and knee.), normal capillary refill (Capillary refill less than 2 seconds, DP pulse 2+ in the left lower extremity), calf tenderness (Patient does have tenderness noted to the calf as well as edema. No ecchymosis.), other (Sensation intact left lower extremity.) Course Vital Signs 12/12/19 19:49 Temperature 98.9 F Pulse Rate 59 L Respiratory 16 Rate Blood Pressure 112/73 O2 Sat by Pulse 100 Oximetry Medical Decision Making - Medical Decision Making Ultrasound is negative for DVT however there is an incidental lymph node measuring 4 cm likely reactive. At this time patient likely has dependent edema from knee injury. I recommend he follows up with orthopedics. Recommends he returns here if he has any worsening symptoms that she is agreeable to. I discussed this case with attending Dr. Brand who agrees with this assessment and treatment plan. Disposition Clinical Impression: Leg pain, Inguinal lymphadenopathy Disposition: HOME SELF-CARE Condition: Good Instructions (If sedation given, give patient instructions): Knee Pain (ED) Additional Instructions: Please take Motrin and Tylenol for pain. Please follow-up with primary care and orthopedics in 1-2 days. Return to the emergency room for any worsening symptoms. Is patient prescribed a controlled substance at d/c from ED?: No Referrals: Negro Tam MD [Primary Care Provider] - 1-2 days Laron Finley MD [STAFF PHYSICIAN] - 1-2 days Time of Disposition: 22:16
--- NOTE | 2019-12-12 20:41 | XR ---
EXAMINATION TYPE: XR knee complete LT DATE OF EXAM: 12/12/2019 CLINICAL HISTORY: Pain. TECHNIQUE: Three views of the left knee are obtained. COMPARISON: None. FINDINGS: There is no acute fracture/dislocation evident in left knee. The tri-compartment joint sp aces appear within normal limits. The overlying soft tissue appears unremarkable. IMPRESSION: There is no acute fracture or dislocation in the left knee.
--- NOTE | 2019-12-12 22:06 | US ---
EXAMINATION TYPE: US venous doppler duplex LE LT DATE OF EXAM: 12/12/2019 9:13 PM COMPARISON: NONE CLINICAL HISTORY: pain. Pain x 1 day. Injured leg on 12/09/2019. No hx of DVT. Patient does not take blood thinners. SIDE PERFORMED: Left TECHNIQUE: The lower extremity deep venous system is examined utilizing real time linear array sonog jerzy with graded compression, doppler sonography and color-flow sonography. VESSELS IMAGED: External Iliac Vein (EIV) Common Femoral Vein Deep Femoral Vein Greater Saphenous Vein * Femoral Vein Popliteal Vein Small Saphenous Vein * Proximal Calf Veins (* superficial vessels) Left Leg: Incidental left inguinal lymph node measurin.3 x 2.5 x 1.4 cm., Likely reactive No fabiola dence of DVT in veins imaged at this time from prox calf veins to EIV. IMPRESSION: No evidence of DVT in the left lower extremity.
[2019-12-12 22:33] VITALS: BP 97/66; PULSE 57; RESP 16; TEMP 98
== END 2019-12-12 22:26 | disposition home or self-care (01) ==
LOC: EC 19:36
DX: M79.605 Pain in left leg (principal); R59.0 Localized enlarged lymph nodes; I10 Essential (primary) hypertension; G47.33 Obstructive sleep apnea (adult) (pediatric); Z91.018 Allergy to other foods; Z91.048 Other nonmedicinal substance allergy status; Z91.013 Allergy to seafood; Z88.8 Allergy status to other drugs, medicaments and biological substances; Z98.84 Bariatric surgery status; Z90.49 Acquired absence of other specified parts of digestive tract; Z99.89 Dependence on other enabling machines and devices
CPT/HCPCS: 99284

== ENCOUNTER → 2020-01-23 | Outpatient (CLI) | payer BC | END | disposition home or self-care (01) | LOC: RADCTMAIN 17:37 | PROVIDERS: ATTEND Surgery Plastic and Reconstructive Surgery | DX: Z53.9 Procedure and treatment not carried out, unspecified reason (principal) ==

== ENCOUNTER → 2020-02-01 | Outpatient (CLI) | payer BC ==
--- NOTE | 2020-02-01 16:37 | CT ---
EXAMINATION TYPE: CT pelvis w con DATE OF EXAM: 02/01/2020 COMPARISON: CT abdomen and pelvis February 26, 2017 HISTORY: Follow up for non-hodgkin's lymphoma. CT DLP: 973 mGycm Automated exposure control for dose reduction was used. CONTRAST: Performed with oral and with IV Contrast, patient injected with 100ml mL of Isovue 300. FINDINGS: Oral contrast does not reach colonic level. No suspicious small or large bowel dilatation. Prostate gland remains within normal limits in size with adjacent scattered bilateral pelvic phleboli ths. Surgical clips in the bilateral upper scrotal region from vasectomy are redemonstrated. Visualized portion of the bladder is within normal limits. No concerning pelvic fluid collection. Oss eous structures are intact. A few prominent but subcentimeter lymph nodes in the groin region bilaterally are stable. No new groi n adenopathy or hernia. I see a few prominent subcentimeter lymph nodes along the iliac chain vessels bilaterally. No suspici ous greater than 1 cm pelvic adenopathy. IMPRESSION: No suspicious greater than 1 cm pelvic or groin adenopathy.
== END | disposition home or self-care (01) ==
LOC: RADCTMAIN 13:58
PROVIDERS: ATTEND Surgery Plastic and Reconstructive Surgery
DX: C85.90 Non-Hodgkin lymphoma, unspecified, unspecified site (principal)
CPT/HCPCS: 72193; Q9967

== ENCOUNTER → 2020-12-30 | Outpatient (CLI) | payer BC ==
[2020-12-30 08:35] LABS: INR 0.9 (<1.2); Partial Thromboplastin Time 25.5 sec (22.0-30.0); Prothrombin Time 10.2 sec (9.0-12.0)
[2020-12-30 10:59] LABS: HGB 14.6 g/dL (13.0-17.0); MCH 31.8 pg (27.0-32.0); MCHC 33.2 g/dL (32.0-37.0); MCV 95.9 fL (80.0-97.0); Platelet Count 178 X 10*3/uL (140-440); RBC 4.59 X 10*6/uL (4.40-5.60); RDW 12.3 % (11.5-14.5); WBC 3.73 X 10*3/uL (4.50-10.00)
[2020-12-30 11:51] LABS: % Iron Saturation 38.78 (15.00-50.00); Albumin 4.5 g/dL (3.8-4.9); Albumin/Globulin Ratio 2.14 (1.60-3.17); BUN/Creat Ratio 16.63 Ratio (12.00-20.00); Blood Urea Nitrogen 13.3 mg/dL (9.0-27.0); Calcium 9.5 mg/dL (8.7-10.3); Chol/HDL Ratio 2.41 Ratio; Globulin 2.1 g/dL (1.6-3.3); HDL Cholesterol 64.6 mg/dL (40.00-60.00); Magnesium 2.3 mg/dL (1.5-2.4); Non-African American GFR(CKD) 102.7 (60.0-200.0); Phosphorus 3.3 mg/dL (2.4-5.1); Potassium 4.1 mmol/L (3.5-5.5); Prealbumin 19.5 mg/dL (18.0-42.0); Total Bilirubin 0.7 mg/dL (0.30-1.20); Total Protein 6.6 g/dL (6.2-8.2)
[2020-12-30 12:07] LABS: Prostate Specific Antigen 1.2 ng/mL (0.00-3.50); T4, Free (Free Thyroxine) 1.13 ng/dL (0.800-1.800)
[2020-12-30 12:11] LABS: Triglycerides 45.8 mg/dL (0.00-149.00); VLDL Calculation 9.16 mg/dL (5.00-40.00)
[2020-12-31 12:45] LABS: Zinc, Serum 62 ug/dL (60-130)
[2021-01-01 06:33] LABS: Vit B1(Thiamine) 63 ug/L (38-122)
== END | disposition home or self-care (01) ==
LOC: LABWHC1 07:15
PROVIDERS: ATTEND Family Medicine
DX: R20.2 Paresthesia of skin (principal); Z98.84 Bariatric surgery status; E89.1 Postprocedural hypoinsulinemia; D50.8 Other iron deficiency anemias; E44.0 Moderate protein-calorie malnutrition; E55.9 Vitamin D deficiency, unspecified; K74.1 Hepatic sclerosis; N19 Unspecified kidney failure; K50.90 Crohn's disease, unspecified, without complications
CPT/HCPCS: 36415; 80053; 80061; 82306; 82525; 82607; 82728; 82746; 83540; 83550; 83735; 83970; 84100; 84134; 84153; 84207; 84255; 84425; 84439; 84443; 84481; 84590; 84630; 85027; 85610; 85730

== ENCOUNTER → 2021-08-21 | Outpatient (CLI) | payer BC ==
--- NOTE | 2021-08-21 09:34 | P.PAINPG ---
Objective - Vital Signs Vital signs: Intake & Output 08/20/21 08/21/21 08/21/21 18:59 06:59 18:59 Weight 97.976 kg PQRS Measure Charge Sheet Comment: HISTORY OF PRESENT ILLNESS: 51 yr old male as a referral from Miguel Ángel WHITTAKER presents today with severe and chronic lower neck pain secondary to disc bulges, spondylosis, spinal stenosis and facet arthropathy for evaluation. Patient states his pain is localized to the lower aspects of his cervical spine, constant, burning, pressure in character, 6 out of 10 in intensity with radiation of numbness to the BUE hands. Pain is provoked with gripping & lifting. Pain is relieved with PT 3 mo ago for 6 weeks, massage therapy integrated with PT, heat, medications ( muscle relaxer ), topicals, TESI in the past, lidoderm patches, guided stretches at home, repositioning and rest. PMH: GERD, HTN, OA) Sleep Apnea/CPAP/BIPAP, Iron Deficiency Anemia, Vitamin D Deficiency. PSH: Maddy Dundoplication, EGD, Sinuplasty/Septoplasty, Vasectomy, Gastric Sleeve (2019), HH Repair, Cholecystectomy, Tonsillectomy SH: Negative x 3. FH: Mother- No Reported History. Father- HTN, NIDDM.. Brother(s)- PE/ All: See list Meds: See list REVIEW OF ORGAN SYSTEMS: CONSTITUTIONAL: No fevers or chills. No recent weight loss. NEUROLOGICAL: + numbness and tingling along the distal extremities. No seizure disorders or headaches. MUSCULOSKELETAL: + pain PSYCHIATRIC: Denies current depression or suicidal thoughts. Physical Examinations : Constitutional : Cooperative , not in acute distress . Neurologic : Cranial nerve II to XII intact. No focal neurological deficits. Psychiatric : alert & oriented x 3. Matching mood & appropriate affect. Judgment & insight intact. Musculoskeletal : Cervical Spine Motor strength in the deltoid and biceps: Normal right side. Normal Left side Motor strength biceps and the wrist extensors: Normal right side . Normal left side Motor strength in the triceps muscle: Normal right side. Normal left side Deep tendon reflexes: Normal at the biceps. Normal at Brachioradialis. Normal at triceps Vertebral body tenderness to deep palpation over C6 Cervical facet loading test: positive bilaterally Spurling test: positive bilaterally Neck distraction test: positive bilaterally Zana sign: positive bilaterally Lumbar spine Motor strength lower extremities ,thigh and legs 5/5 Right side , 5/5 Left side Deep tendon reflexes : Normal Knee Jerk. Normal Ankle Jerk Vertebral body tenderness over Lumbar facet Loading Test: positive Right / positive Left Range of motion of the lumbar spine Flexion 30 degrees, extension 10 degrees Straight Leg Raise test: Left/ Right positive at degree Garuav test: positive right / positive left. Severe tenderness over the Sacroiliac joint on the Right / Left sides Gaenslen test: positive bilaterally Seated flexion test: positive bilaterally. Sacral spine : Severe tenderness over the Sacroiliac joint: right side / left side Range of motion: Flexion of the lumbar spine <60 degrees Range of motion: Extension of the lumbar spine <20 degrees Gaenslen's Test positive Michael's Test positive Gaurav test: positive right side / left side Thigh Thrust Test Sacral Thrust Test Imaging: MRI without contrast of the cervical spine reviewed Assessment/ Plan : Cervical spondylosis, cervical stenosis Recommendation of DOE C6-C7. May need a series of injections, up to 3 within a 6 mo period, for optimal pain relief. Risks, benefits of procedure discussed and patient verbalized understanding. Denies aspirin or anti- coagulant use or medical history of diabetes. Protocol for discontinuation/ continuation of med ications randi procedure discussed. All questions answered. I have spent greater than 30 minutes on patient care today. Dr Baxter was available by phone for the evaluation of this patient. The time was used to review the medical records including relevant urine studies and Prescription history (MAPs), review of the available imaging, evaluation and examination of the patient, coordination of care with the medical staff and if applicable referring physicians, as well as creation of the medical record PQRS Narrative: Smoking Status Never smoker Home Medications: Ambulatory Orders Copper-Zinc 1 tab PO DAILY 04/17/19 Multivitamins, Thera [Multivitamin (formulary)] 1 tab PO DAILY 04/17/19 Controlled Substance Measures - Controlled Substance Measures Is patient prescribed a controlled substance at discharge?: No
[2021-08-21 10:05] VITALS: BP 122/76; PULSE 88; RESP 18; TEMP 98.2
== END ==
LOC: PNWHC3 08:30
PROVIDERS: ATTEND Specialist
DX: M48.02 Spinal stenosis, cervical region (principal); M47.812 Spondylosis without myelopathy or radiculopathy, cervical region; I10 Essential (primary) hypertension; M19.90 Unspecified osteoarthritis, unspecified site; Z91.011 Allergy to milk products; Z91.09 Other allergy status, other than to drugs and biological substances; Z91.010 Allergy to peanuts; Z91.018 Allergy to other foods; Z91.048 Other nonmedicinal substance allergy status; Z91.013 Allergy to seafood; Z88.8 Allergy status to other drugs, medicaments and biological substances
CPT/HCPCS: 99211

== ENCOUNTER 2021-09-30 06:27 | Day surgery (SDC) | payer BC ==
[2021-09-26 12:17] VITALS: BMI 31.8
[2021-09-30] MEDS ORDERED: LACTATED RINGERS 1,000 ML IV SCH (06:45)
[2021-09-30 06:58] VITALS: TEMP 97.1
[2021-09-30] MEDS ORDERED: IOPAMIDOL M200 10 ML VIAL ONE (07:18)
[2021-09-30] MEDS ORDERED: DEXAMETHASONE SOD PHOSPHATE 10 MG/ML 1 ML VIAL ONE (07:18)
[2021-09-30] MEDS ORDERED: MIDAZOLAM 2 MG/2 ML VIAL ONE (07:18)
[2021-09-30] MEDS ORDERED: fentaNYL (PF) 50 MCG/ML 2 ML AMP ONE (07:18)
--- NOTE | 2021-09-30 07:27 | P.PCN ---
Date of Procedure: 09/30/21 Procedure(s) Performed: Cervical epidural steroid injection C6-C7 Description of Procedure: PROCEDURE 1. Cervical epidural steroid injection under fluoroscopic guidance, C6-C7 2. Cervical epidurogram. PREOPERATIVE DIAGNOSIS: Cervical radiculopathy POSTOPERATIVE DIAGNOSIS: Cervical radiculopathy Imaging: Fluoroscopy was used, images where saved to the medical record ANESTHESIA: Medication Administered by: Nursing Sedation Type: Moderate sedation Sedation Supervision start time: 719 Sedation Supervision end time: 727 PROCEDURE DESCRIPTION / TECHNIQUE: The patient was seen and identified in the preoperative area. Risks, benefits, and alternatives were discused with the patient and the patient has consented to the procedure. Risks of the procedure include potential for bleeding, infection, nerve damage, and incomplete pain relief were discussed with the patient. All questions were answered for the patient Patient was taken to the OR and time out was completed. The patient was placed in the prone position on the procedure table. A pillow was placed under the patients chest to increase the cervical interlaminar space. The cervical area was prepped and draped in the usual sterile fashion. Vital signs were closely monitored during the procedure. Using anterior-posterior fluoroscopy, the C6-C7 interlaminar space was identified and the skin over this site was marked and then infiltrated with 1% lidocaine subcutaneously. Subsequently, a 20-gauge 3-1/2-inch Tuohy epidural needle was inserted and advanced toward the epidural space by means of the [id number] technique and guided by AP and lateral fluoroscopy. The correct needle position in the epidural space was verified with the injection of 1 mL of the water soluble contrast dye Isovue-180 and observing an excellent epidurogram with the epidural spread of the dye, after negative aspiration for blood and CSF and in the absence of paresthesias. Again after negative aspiration, a mixture containing 10 mg Dexamethasone and 2 ml of preservative- free normal saline injected and a washout of epidurogram was seen. Needle was withdrawn intact, skin was cleansed, and bandages were applied. Complications: none. Disposition: patient was placed in supine position and transferred to the recovery room area in stable condition and there was no evidence of upper or lower extremity motor or sensory deficit after the procedure patient was discharged from recovery room after discharge criteria met and home discharge instructions was given by the staff and patient will follow with the pain as directed.
[2021-09-30] MEDS ORDERED: IV FLUID CONTINUATION 1,000 ML IV ONE ×2 (07:35→07:50)
[2021-09-30 08:18] VITALS: BP 109/75; PULSE 61; RESP 16
--- NOTE | 2021-09-30 08:29 | FL ---
Fluoroscopy History: CERVICAL EPI INJ DOE FL TIME 4 SECS
== END 2021-09-30 08:20 | disposition home or self-care (01) ==
LOC: ORPAIN 06:27
PROVIDERS: ATTEND Hospitalist
DX: M54.12 Radiculopathy, cervical region (principal)
CPT/HCPCS: 62321; J2250; J1100; J3010; Q9966

== ENCOUNTER 2022-01-01 06:28 | Emergency (ER) | payer BC ==
[2022-01-01 06:43] VITALS: BP 123/85; PULSE 66; RESP 16; TEMP 97.9
[2022-01-01] MEDS ORDERED: LIDOCAINE 1% INJ 10MG/ML (30 ML VIAL-PF) SQ ONE (06:47)
--- NOTE | 2022-01-01 07:06 | ED ---
Wound/Laceration HPI - General Chief Complaint: Wound/Laceration Stated Complaint: Laceration on left wrist Time Seen by Provider: 01/01/22 06:40 Source: patient, RN notes reviewed Mode of arrival: ambulatory Limitations: no limitations - History of Present Illness Initial Comments: Patient is a 51 year old male presenting to the ER with a chief complaint of wrist laceration. Patient reports moving a piece of wood with a metal plate on it in his barn and the metal plate cut his wrist. He states this happened about an hour ago. He held pressure on the cut to stop the bleeding. The patient tried holding it together with a bandage but it bleed through. Patient denies numbness or tingling or limited ROM in wrist or fingers. His last tetanus vaccination was 3 years ago. - Related Data Home Medications Medication Instructions Recorded Confirmed Venlafaxine HCl [Effexor XR] 75 mg PO DAILY 09/26/21 10/13/21 Allergies Allergy/AdvReac Type Severity Reaction Status Date / Time corn Allergy Anaphylaxis Verified 10/13/21 08:57 lactose Allergy Diarrhea Verified 10/13/21 08:57 peas Allergy Anaphylaxis Verified 10/13/21 08:57 pollen extracts Allergy Rash/Hives Verified 10/13/21 08:57 Poultry Allergy Anaphylaxis Verified 10/13/21 08:57 tuna oil Allergy Anaphylaxis Verified 10/13/21 08:57 omeprazole AdvReac Severe "BONE PAIN" Verified 10/13/21 08:57 pantoprazole [From Protonix] AdvReac Severe forearms Verified 10/13/21 08:57 swollen & red,warm adhesive AdvReac Rash/Hives Verified 10/13/21 08:57 tuna Allergy Anaphylaxis Uncoded 10/13/21 08:57 Review of Systems ROS Statement: Those systems with pertinent positive or pertinent negative responses have been documented in the HPI. ROS Other: All systems not noted in ROS Statement are negative. Past Medical History Past Medical History: GERD/Reflux, Hypertension, Osteoarthritis (OA), Sleep Apnea/CPAP/BIPAP Additional Past Medical History / Comment(s): Hiatal hernia w/ surgery, hx HTN & CRISTELA off Rx w/ wgt loss, arthritis bilateral knees, hips, ankles, low back and R shoulder, CRISTELA with Cpap, Hpylori x2, iron deficiency, vitamin D deficiency, sinus problems in the past, mutliple food allergies. History of Any Multi-Drug Resistant Organisms: None Reported Past Surgical History: Bariatric Surgery, Cholecystectomy, Hernia Repair, Tonsillectomy Additional Past Surgical History / Comment(s): 12/20/17 Maddy Fudoplication, EGD, septoplasty/sinuplasty, deviated septum surgery, vasectomy, circumcision, 12/20/17 Hiatal hernia repair, 02/07/18 cholecystectomy, sleeve gastrectomy 08-01-18 ([facility]) Past Anesthesia/Blood Transfusion Reactions: Previous Problems w/ Anesthesia, Motion Sickness Additional Past Anesthesia/Blood Transfusion Reaction / Comment(s): Difficulty/slow waking up Past Psychological History: No Psychological Hx Reported Smoking Status: Never smoker Past Alcohol Use History: None Reported Past Drug Use History: None Reported - Past Family History Mother Family Medical History: No Reported History Father Family Medical History: Diabetes Mellitus, Hypertension Additional Family Medical History / Comment(s): Type 2 DM, Brother(s) Family Medical History: Pulmonary Embolus Additional Family Medical History / Comment(s): PE caused General Exam Limitations: no limitations General appearance: alert, in no apparent distress Respiratory exam: Present: normal lung sounds bilaterally. Absent: respiratory distress, wheezes, rales, rhonchi, stridor Cardiovascular Exam: Present: regular rate, normal rhythm, normal heart sounds. Absent: systolic murmur, diastolic murmur, rubs, gallop, clicks Neurological exam: Present: alert, oriented X3, CN II-XII intact Psychiatric exam: Present: normal affect, normal mood Skin exam: Present: warm, normal color, other (laceration to left lateral wrist over ulnar styloid , full ROM, full strength ) Course Vital Signs 01/01/22 06:39 Temperature 97.9 F Pulse Rate 66 Respiratory 16 Rate Blood Pressure 123/85 O2 Sat by Pulse 99 Oximetry Procedures - Laceration Laceration #1 Consent Obtained: verbal consent Indication: laceration Site: upper extremity Size (cm): 3 Description: irregular Depth: simple, single layer Anesthetic Used: lidocaine 1% Anesthesia Technique: local infiltration Amount (mls): 4 Pre-repair: wound explored, irrigated extensively, deep structures intact Type of Sutures: nylon Size of Sutures: 4-0 Number of Sutures: 3 Technique: simple, interrupted Patient Tolerated Procedure: well, no complications Medical Decision Making - Medical Decision Making Laceration was repeared no complications patient had no tendon involvement. Patient's neurovascular intact was discharged with wound care instructions. Disposition Clinical Impression: Laceration of left wrist Disposition: HOME SELF-CARE Condition: Stable Instructions (If sedation given, give patient instructions): Care For Your Stitches (ED), Laceration (ED) Additional Instructions: Have sutures removed in 10 days.Please return to the Emergency Department if symptoms worsen or any other concerns. Is patient prescribed a controlled substance at d/c from ED?: No Referrals: Negro Tam MD [Primary Care Provider] - 1-2 days Time of Disposition: 07:06
== END 2022-01-01 07:28 | disposition home or self-care (01) ==
LOC: EC 06:28
DX: S61.512A Laceration without foreign body of left wrist, initial encounter (principal); K21.9 Gastro-esophageal reflux disease without esophagitis; I10 Essential (primary) hypertension; L23.1 Allergic contact dermatitis due to adhesives; M19.90 Unspecified osteoarthritis, unspecified site; G47.30 Sleep apnea, unspecified; Z91.018 Allergy to other foods; Z91.011 Allergy to milk products; Z91.010 Allergy to peanuts; Z91.013 Allergy to seafood; Z88.8 Allergy status to other drugs, medicaments and biological substances; W26.8XXA Contact with other sharp object(s), not elsewhere classified, initial encounter
CPT/HCPCS: 12002; 99282; J2001

== ENCOUNTER 2022-01-13 02:56 | Emergency (ER) | payer BC ==
[2022-01-13] MEDS ORDERED: ETODOLAC 400 MG TAB PO STA (03:07)
[2022-01-13] MEDS ORDERED: HYDROmorphone 1 MG/ML 1 ML SYRINGE IM STA (03:07)
--- NOTE | 2022-01-13 03:08 | ED ---
Recheck HPI - General Chief Complaint: Neck Pain/Injury Stated Complaint: Neck and back pain Time Seen by Provider: 01/13/22 03:05 Source: patient, RN notes reviewed, old records reviewed Mode of arrival: ambulatory Limitations: no limitations - History of Present Illness Initial Comments: This is a 51-year-old male DF for evaluation. Patient presents today for evaluation regards to overall not feeling well. Severe neck pain that woke him from sleep today. Patient's been dealing with some neck pain on outpatient basis also severe headache no nausea no vomiting no recent tingling of her feet and hands symptoms were severe and worsened during comment to the hospital MD Complaint: medication refill request, other (Recheck for neck pain) -: hour(s) Returns Today for: persistent/worsening pain related to initial visit Symptoms Since Prior Visit: worsening pain Context: planned re-check Associated Symptoms: none Treatments Prior to Arrival: Given Pain Meds on - Related Data Home Medications Medication Instructions Recorded Confirmed Venlafaxine HCl [Effexor XR] 75 mg PO DAILY 09/26/21 10/13/21 Allergies Allergy/AdvReac Type Severity Reaction Status Date / Time corn Allergy Anaphylaxis Verified 01/13/22 02:57 lactose Allergy Diarrhea Verified 01/13/22 02:57 peas Allergy Anaphylaxis Verified 01/13/22 02:57 pollen extracts Allergy Rash/Hives Verified 01/13/22 02:57 Poultry Allergy Anaphylaxis Verified 01/13/22 02:57 tuna oil Allergy Anaphylaxis Verified 01/13/22 02:57 omeprazole AdvReac Severe "BONE PAIN" Verified 01/13/22 02:57 pantoprazole [From Protonix] AdvReac Severe forearms Verified 01/13/22 02:57 swollen & red,warm adhesive AdvReac Rash/Hives Verified 01/13/22 02:57 tuna Allergy Anaphylaxis Uncoded 01/13/22 02:57 Review of Systems ROS Statement: Those systems with pertinent positive or pertinent negative responses have been documented in the HPI. ROS Other: All systems not noted in ROS Statement are negative. Past Medical History Past Medical History: GERD/Reflux, Hypertension, Osteoarthritis (OA), Sleep Apnea/CPAP/BIPAP Additional Past Medical History / Comment(s): Hiatal hernia w/ surgery, hx HTN & CRISTELA off Rx w/ wgt loss, arthritis bilateral knees, hips, ankles, low back and R shoulder, CRISTELA with Cpap, Hpylori x2, iron deficiency, vitamin D deficiency, sinus problems in the past, mutliple food allergies. History of Any Multi-Drug Resistant Organisms: None Reported Past Surgical History: Bariatric Surgery, Cholecystectomy, Hernia Repair, Ton sillectomy Additional Past Surgical History / Comment(s): 12/20/17 Maddy Fudoplication, EGD, septoplasty/sinuplasty, deviated septum surgery, vasectomy, circumcision, 12/20/17 Hiatal hernia repair, 02/07/18 cholecystectomy, sleeve gastrectomy 08-01-18 ([facility]) Past Anesthesia/Blood Transfusion Reactions: Previous Problems w/ Anesthesia, Motion Sickness Additional Past Anesthesia/Blood Transfusion Reaction / Comment(s): Difficulty/slow waking up Past Psychological History: No Psychological Hx Reported Smoking Status: Never smoker Past Alcohol Use History: None Reported Past Drug Use History: None Reported - Past Family History Mother Family Medical History: No Reported History Father Family Medical History: Diabetes Mellitus, Hypertension Additional Family Medical History / Comment(s): Type 2 DM, Brother(s) Family Medical History: Pulmonary Embolus Additional Family Medical History / Comment(s): PE caused General Exam Limitations: no limitations General appearance: alert, in no apparent distress, anxious Head exam: Present: atraumatic, normocephalic, normal inspection Eye exam: Present: normal appearance, PERRL, EOMI. Absent: scleral icterus, conjunctival injection, periorbital swelling ENT exam: Present: normal exam, mucous membranes moist Neck exam: Present: normal inspection. Absent: tenderness, meningismus, lymphadenopathy Respiratory exam: Present: normal lung sounds bilaterally. Absent: respiratory distress, wheezes, rales, rhonchi, stridor Cardiovascular Exam: Present: regular rate, normal rhythm, normal heart sounds. Absent: systolic murmur, diastolic murmur, rubs, gallop, clicks GI/Abdominal exam: Present: soft, normal bowel sounds. Absent: distended, tenderness, guarding, rebound, rigid Extremities exam: Present: normal inspection, full ROM, normal capillary refill. Absent: tenderness, pedal edema, joint swelling, calf tenderness Back exam: Present: normal inspection Neurological exam: Present: alert, oriented X3, CN II-XII intact Psychiatric exam: Present: normal affect, normal mood Skin exam: Present: warm, dry, intact, normal color. Absent: rash Course Vital Signs 01/13/22 01/13/22 01/13/22 02:57 03:08 04:45 Temperature 97.8 F 97.7 F 98.4 F Pulse Rate 102 H 98 66 Respiratory 16 22 16 Rate Blood Pressure 122/68 117/79 126/85 O2 Sat by Pulse 98 100 96 Oximetry - Reevaluation(s) Reevaluation #1: 01/13/22 Medical record is reviewed Patient symptoms improved in the emergency room Patient informed of results and questions answered Medical Decision Making - Medical Decision Making 48 female DF for evaluation patient presents today for evaluation of headache severe headache and neck pain. Patient has CT scans and lab values done which were all normal here in the ER. Patient feels well currently and can be discharged home - Lab Data Result diagrams: 01/13/22 03:26 01/13/22 03:26 Lab Results 01/13/22 01/13/22 01/13/22 Range/Units 03:26 03:26 03:26 WBC 5.7 (3.8-10.6) k/uL RBC 4.59 (4.30-5.90) m/uL Hgb 14.9 (13.0-17.5) gm/dL Hct 42.1 (39.0-53.0) % MCV 91.6 (80.0-100.0) fL MCH 32.5 (25.0-35.0) pg MCHC 35.5 (31.0-37.0) g/dL RDW 12.5 (11.5-15.5) % Plt Count 232 (150-450) k/uL MPV 9.0 Neutrophils % 50 % Lymphocytes % 35 % Monocytes % 6 % Eosinophils % 5 % Basophils % 1 % Neutrophils # 2.8 (1.3-7.7) k/uL Lymphocytes # 2.0 (1.0-4.8) k/uL Monocytes # 0.4 (0-1.0) k/uL Eosinophils # 0.3 (0-0.7) k/uL Basophils # 0.0 (0-0.2) k/uL PT 10.4 (9.0-12.0) sec INR 0.9 (<1.2) APTT 24.9 (22.0-30.0) sec Sodium 139 (137-145) mmol/L Potassium 3.3 L (3.5-5.1) mmol/L Chloride 107 (98-107) mmol/L Carbon Dioxide 19 L (22-30) mmol/L Anion Gap 13 mmol/L BUN 17 (9-20) mg/dL Creatinine 0.62 L (0.66-1.25) mg/dL Est GFR (CKD-EPI)AfAm >90 (>60 ml/min/1.73 sqM) Est GFR (CKD-EPI)NonAf >90 (>60 ml/min/1.73 sqM) Glucose 111 H (74-99) mg/dL Calcium 9.3 (8.4-10.2) mg/dL Phosphorus 1.7 L (2.5-4.5) mg/dL Magnesium 2.1 (1.6-2.3) mg/dL Total Bilirubin 0.8 (0.2-1.3) mg/dL AST 43 (17-59) U/L ALT 31 (4-49) U/L Alkaline Phosphatase 87 (38-126) U/L Troponin I (0.000-0.034) ng/mL Total Protein 6.9 (6.3-8.2) g/dL Albumin 4.6 (3.5-5.0) g/dL 01/13/22 Range/Units 03:26 WBC (3.8-10.6) k/uL RBC (4.30-5.90) m/uL Hgb (13.0-17.5) gm/dL Hct (39.0-53.0) % MCV (80.0-100.0) fL MCH (25.0-35.0) pg MCHC (31.0-37.0) g/dL RDW (11.5-15.5) % Plt Count (150-450) k/uL MPV Neutrophils % % Lymphocytes % % Monocytes % % Eosinophils % % Basophils % % Neutrophils # (1.3-7.7) k/uL Lymphocytes # (1.0-4.8) k/uL Monocytes # (0-1.0) k/uL Eosinophils # (0-0.7) k/uL Basophils # (0-0.2) k/uL PT (9.0-12.0) sec INR (<1.2) APTT (22.0-30.0) sec Sodium (137-145) mmol/L Potassium (3.5-5.1) mmol/L Chloride (98-107) mmol/L Carbon Dioxide (22-30) mmol/L Anion Gap mmol/L BUN (9-20) mg/dL Creatinine (0.66-1.25) mg/dL Est GFR (CKD-EPI)AfAm (>60 ml/min/1.73 sqM) Est GFR (CKD-EPI)NonAf (>60 ml/min/1.73 sqM) Glucose (74-99) mg/dL Calcium (8.4-10.2) mg/dL Phosphorus (2.5-4.5) mg/dL Magnesium (1.6-2.3) mg/dL Total Bilirubin (0.2-1.3) mg/dL AST (17-59) U/L ALT (4-49) U/L Alkaline Phosphatase (38-126) U/L Troponin I <0.012 (0.000-0.034) ng/mL Total Protein (6.3-8.2) g/dL Albumin (3.5-5.0) g/dL - Radiology Data Radiology results: report reviewed (CT brain CTA, was negative for acute disease), image reviewed Disposition Clinical Impression: Cervical radiculopathy, Headache, Neck pain, Paresthesia Disposition: HOME SELF-CARE Condition: Good Instructions (If sedation given, give patient instructions): Acute Headache (ED), Cervical Radiculopathy (ED), Acute Neck Pain (ED) Is patient prescribed a controlled substance at d/c from ED?: No Referrals: Negro Tam MD [Primary Care Provider] - 1-2 days Time of Disposition: 05:35
[2022-01-13] MEDS ORDERED: SODIUM CHLORIDE 0.9% 1,000 ML IV STA (03:21)
[2022-01-13] MEDS ORDERED: HYDROmorphone 1 MG/ML 1 ML SYRINGE IVP STA (03:21)
[2022-01-13] MEDS ORDERED: PROCHLORPERAZINE INJ 10 MG/2 ML VIAL IVP STA (03:21)
[2022-01-13 03:37] LABS: Basophils % (A) 1 %; Eosinophils # (A) 0.3 k/uL (0-0.7); Eosinophils % (A) 5 %; HCT 42.1 % (39.0-53.0); HGB 14.9 gm/dL (13.0-17.5); Lymphocytes % (A) 35 %; MCH 32.5 pg (25.0-35.0); MCHC 35.5 g/dL (31.0-37.0); MCV 91.6 fL (80.0-100.0); Monocytes # (A) 0.4 k/uL (0-1.0); Monocytes % (A) 6 %; Neutrophils # (A) 2.8 k/uL (1.3-7.7); Neutrophils % (A) 50 %; Platelet Count 232 k/uL (150-450); RBC 4.59 m/uL (4.30-5.90); RDW 12.5 % (11.5-15.5); WBC 5.7 k/uL (3.8-10.6)
[2022-01-13 03:43] LABS: ALT 31 U/L (4-49); AST 43 U/L (17-59); African American GFR (CKD) >90 (>60 ml/min/1.73 sqM); Albumin 4.6 g/dL (3.5-5.0); Alkaline Phosphatase 87 U/L (38-126); Anion Gap 13 mmol/L; Blood Urea Nitrogen 17 mg/dL (9-20); Calcium 9.3 mg/dL (8.4-10.2); Carbon Dioxide 19 mmol/L (22-30); Chloride 107 mmol/L (98-107); Glucose 111 mg/dL (74-99); Magnesium 2.1 mg/dL (1.6-2.3); Non-African American GFR(CKD) >90 (>60 ml/min/1.73 sqM); Phosphorus 1.7 mg/dL (2.5-4.5); Potassium 3.3 mmol/L (3.5-5.1); Sodium 139 mmol/L (137-145); Total Bilirubin 0.8 mg/dL (0.2-1.3); Total Protein 6.9 g/dL (6.3-8.2)
[2022-01-13 03:47] LABS: INR 0.9 (<1.2); Partial Thromboplastin Time 24.9 sec (22.0-30.0); Prothrombin Time 10.4 sec (9.0-12.0)
--- NOTE | 2022-01-13 04:16 | CT ---
EXAMINATION TYPE: CT brain [facility] wo con DATE OF EXAM: 01/13/2022 COMPARISON: 05/29/2018 HISTORY: Neck and back pain, numbness to all extremities. CT DLP: 1514.3 mGycm Automated exposure control for dose reduction was used. Images obtained of the brain and cervical spine without contrast. Ventricles have normal size. There is no mass effect or midline shift. No sign of intracranial hemorr feliciano. There is some mucosal thickening left maxillary sinus. There is normal aeration of the mastoid sinuses. No evidence of cerebral edema. The cervical vertebra have normal alignment. Posterior elements are intact. There is some degenerativ e disc space narrowing at C5-6 and C6-7 with spurring of the endplates. No compression fracture. IMPRESSION: Negative CT scan of the brain. Mild left maxillary sinusitis with a changing pattern compared to old exam. No acute intracranial abnormality. Mild degenerative disc changes in the lower cervical spine. No fracture.
--- NOTE | 2022-01-13 04:20 | CT ---
EXAMINATION TYPE: CT angio [facility] DATE OF EXAM: 01/13/2022 COMPARISON: None HISTORY: Neck and back pain, numbness to all extremities. CT DLP: 1603 mGycm Automated exposure control for dose reduction was used. CONTRAST: Performed with IV Contrast, patient injected with 100ml mL of Isovue 370. Images obtained from the skull base to the vertex of the brain with the IV contrast. There are Three- D postprocessed images. There is arterial flow in both internal carotid arteries. There is arterial flow in the anterior midd le and posterior cerebral arteries bilaterally. There is no mass effect. No evidence of intracranial hemodynamic arterial stenosis. There is arterial flow in the vertebrobasilar artery system. No eviden ce of aneurysm or neovascularity. There is flow seen in both distal vertebral arteries. The left post erior cerebral artery appears to fill mostly through the left posterior communicating artery. There i s normal enhancement of the venous sinuses. IMPRESSION: Negative CT angiogram of the brain. Mild maxillary and ethmoid sinusitis.
[2022-01-13 04:46] VITALS: BP 126/85; PULSE 66; RESP 16; TEMP 98.4
== END 2022-01-13 05:34 | disposition home or self-care (01) ==
LOC: EC 02:56
DX: M54.12 Radiculopathy, cervical region (principal); R51.9 Headache, unspecified; R20.2 Paresthesia of skin; G47.33 Obstructive sleep apnea (adult) (pediatric); M54.2 Cervicalgia; I10 Essential (primary) hypertension; Z91.018 Allergy to other foods; Z91.011 Allergy to milk products; Z88.8 Allergy status to other drugs, medicaments and biological substances; Z91.013 Allergy to seafood; Z91.048 Other nonmedicinal substance allergy status
CPT/HCPCS: 99284; 96374; 96375; 96361; 36415; 80053; 83735; 84100; 84484; 85025; 85610; 85730; 72125; 70496; 70450; J0780; J1170; Q9967

== ENCOUNTER → 2022-03-26 | Outpatient (CLI) | payer BC ==
[2022-03-26 13:47] LABS: INR 0.9 (<1.2); Partial Thromboplastin Time 23.9 sec (22.0-30.0); Prothrombin Time 9.8 sec (9.0-12.0)
[2022-03-26 18:27] LABS: HCT 48.7 % (39.6-50.0); HGB 15.9 g/dL (13.0-17.0); MCH 31.8 pg (27.0-32.0); MCHC 32.6 g/dL (32.0-37.0); MCV 97.4 fL (80.0-97.0); Mean Platelet Volume 11.3 fL (9.5-12.2); NRBC Per 100 WBC 0 /100 WBCS (0.0-0.0); Platelet Count 209 X 10*3/uL (140-440); RDW 12.5 % (11.5-14.5); WBC 5.38 X 10*3/uL (4.50-10.00)
[2022-03-26 18:53] LABS: Rheumatoid Factor, Qnt <10 IU/mL (0-15)
[2022-03-26 18:56] LABS: Erythrocyte Sedimentation Rate 4 mm/Hr (0-20)
[2022-03-26 19:03] LABS: % Iron Saturation 14.37 (15.00-50.00); ALT 36 U/L (10-49); AST 36 U/L (14-35); African American GFR (CKD) 98.5 (60.0-200.0); Albumin 4.9 g/dL (3.8-4.9); Albumin/Globulin Ratio 1.88 (1.60-3.17); Alkaline Phosphatase 76 U/L (41-126); Blood Urea Nitrogen 19.3 mg/dL (9.0-27.0); Calcium 9.9 mg/dL (8.7-10.3); Carbon Dioxide 26.9 mmol/L (20.0-27.5); Chloride 102 mmol/L (96-109); Globulin 2.6 g/dL (1.6-3.3); Glucose 100 mg/dL (70-110); Iron 53 ug/dL (65-175); Magnesium 2.2 mg/dL (1.5-2.4); Non-African American GFR(CKD) 84.9 (60.0-200.0); Phosphorus 3.6 mg/dL (2.4-5.1); Potassium 4.6 mmol/L (3.5-5.5); Sodium 141 mmol/L (135-145); Total Iron Binding Capacity 365 ug/dL (228-460); Total Protein 7.5 g/dL (6.2-8.2)
[2022-03-26 19:31] LABS: C Reactive Protein <0.30 mg/dL (0.00-0.80); Chol/HDL Ratio 3.04 Ratio; Creatine Kinase 140 U/L (35-257); LDL Cholesterol,Calculated 105.9 mg/dL (0.0-131.0); Prealbumin 23.6 mg/dL (18.0-42.0); VLDL Calculation 17.54 mg/dL (5.00-40.00)
[2022-03-27 12:11] LABS: Zinc, Serum 56 ug/dL (60-130)
== END | disposition home or self-care (01) ==
LOC: LABWHC1 12:37
PROVIDERS: ATTEND Family Medicine
DX: E66.01 Morbid (severe) obesity due to excess calories (principal); M79.10 Myalgia, unspecified site; Z90.3 Acquired absence of stomach [part of]; E04.1 Nontoxic single thyroid nodule; E89.1 Postprocedural hypoinsulinemia; D50.8 Other iron deficiency anemias; E44.0 Moderate protein-calorie malnutrition; E45 Retarded development following protein-calorie malnutrition; E55.9 Vitamin D deficiency, unspecified; K74.1 Hepatic sclerosis; N19 Unspecified kidney failure; T56.894A Toxic effect of other metals, undetermined, initial encounter; K50.90 Crohn's disease, unspecified, without complications
CPT/HCPCS: 36415; 80053; 80061; 82306; 82525; 82550; 82607; 82728; 82746; 83036; 83540; 83550; 83735; 83970; 84100; 84134; 84255; 84425; 84439; 84443; 84481; 84590; 84630; 85027; 85610; 85652; 85730; 86038; 86140; 86431

== ENCOUNTER → 2022-04-15 | Outpatient (CLI) | payer BC ==
--- NOTE | 2022-04-15 15:47 | P.BASOAP ---
Subjective Progress Note Date: 04/15/22 DATE OF SERVICE: 04/15/2022 CHIEF COMPLAINT: Status post sleeve gastrectomy HISTORY OF PRESENT ILLNESS: Joey Chaney is a 52-year-old male status post sleeve gastrectomy, 08/01/2018. He is 4 years out. He has been lost to follow up for 2 years. He comes in with new complaints of atypical chest pain and was hospitalized 1 month ago. He has epigastric pain to chest pain. He has trouble eating with dysphagia. He reports moderate to severe pain. He presents for management of his symptoms. He comes in with weight gain. At his height of 5 foot 8.75 inches, his ideal body weight is 163 pounds. He had weighed 319 pounds. Today, he comes in weighing 234 pounds from 223 pounds, 2 years ago. He has gained 11 pounds in 2 years. Body mass index is 47.6 down to 34.8. Lifetime weight loss of 85 pounds. Percent excess weight loss of 55 % lifetime. PAST MEDICAL HISTORY: 1. Morbid obesity. 2. Body mass index of 47.6, initial 3. Osteoarthritis of the knees. 4. Osteoarthritis of the hips. 5. Osteoarthritis of the lower back. 6. Obstructive sleep apnea. 7. Hypertensive heart disease. 8. Osteoarthritis of the ankles. 9. Gastroesophageal reflux disease. 10. Osteoarthritis of the right shoulder. 11. H pylori gastritis. 12. Lipoma of the abdominal wall. PAST SURGICAL HISTORY: 1. Rhinoplasty. 2. Vasectomy. 3. Tonsillectomy. 4. Upper endoscopy 5. Hiatal hernia repair 6. Cholecystectomy 7. Sleeve gastrectomy HOME MEDICATIONS: Home Medications Medication Instructions Recorded Confirmed Venlafaxine HCl [Effexor XR] 75 mg PO PC-LUNCH 09/26/21 05/13/22 HYDROcodone/APAP 10-325MG [[place] 1 tab PO Q6HR PRN 04/28/22 05/13/22 10-325] methocarbamoL [Methocarbamol] 750 mg PO TID PRN 04/28/22 05/13/22 Diclofenac Sodium [Voltaren 1 applic TOPICAL DAILY 05/13/22 05/13/22 Arthritis Pain 1% Gel] Previous Rx's Medication Instructions Recorded Acetaminophen Tab [Tylenol] 650 mg PO Q6HR PRN tab 02/05/23 Hyoscyamine Elixir [Levsin 0.125 mg PO TID #10 ml 04/15/22 0.125MG/ML Drops] Sucralfate [Carafate] 1 gm PO TID #90 tab 05/04/22 ALLERGIES: Allergies Allergy/AdvReac Type Severity Reaction Status Date / Time corn Allergy Anaphylaxis Verified 05/11/22 12:58 lactose Allergy Diarrhea Verified 05/11/22 12:58 peas Allergy Anaphylaxis Verified 05/11/22 12:58 pollen extracts Allergy Rash/Hives Verified 05/11/22 12:58 Poultry Allergy Anaphylaxis Verified 05/11/22 12:58 tuna oil Allergy Anaphylaxis Verified 05/11/22 12:58 omeprazole AdvReac Severe "BONE PAIN" Verified 05/11/22 12:58 pantoprazole [From Protonix] AdvReac Severe forearms Verified 05/11/22 12:58 swollen & red,warm adhesive AdvReac Rash/Hives Verified 05/11/22 12:58 famotidine [From Pepcid] AdvReac bone & Verified 05/11/22 12:58 muscle pain tuna Allergy Anaphylaxis Uncoded 05/11/22 12:58 SOCIAL HISTORY: No active tobacco use. FAMILY HISTORY: No family history of ulcerative colitis disease or Crohn's disease. Family history of morbid obesity. No lupus in the family. No reports of stomach or esophageal cancer. Family history of diabetes type 2. Has family history of PE and DVTs. REVIEW OF ORGAN SYSTEMS: CONSTITUTIONAL: At his height of 5 foot 8.75 inches, his ideal body weight is 163 pounds. He comes was 319 pounds. Body mass index was 47.6. HEENT: Denies any active troubles with vision or hearing. Has troubles with swallowing. ENDOCRINE: No diabetes. No hypothyroidism. CARDIOVASCULAR: No reports of palpitations or heart attacks or chest pain. RESPIRATORY: Has daytime somnolence. No asthma. Has obstructive sleep apnea. GI: Denies any bright red blood per rectum. No diarrhea or constipation. Has gastroesophageal reflux disease. MUSCULOSKELETAL: Has lower back pain and joint pain. Has osteoarthritis of the knees. NEURO: No headaches. No seizure disorders. PSYCH: No depression or suicidal ideation. RHEUMATOLOGIC: No lupus. No rheumatoid arthritis. HEMATOLOGIC: Denies any abnormal bleeding or bruising. No personal history of DVTs. Has family history of PE and DVTs. SKIN: No rash. No skin cancer. PHYSICAL EXAM: VITAL SIGNS: Height 5 foot 8.75 inches, weight 234 pounds. BMI 34.8 Vital Signs Temp 98.6 F 04/15/22 16:07 Pulse 75 04/15/22 16:07 Resp 16 04/15/22 16:07 BP 124/79 04/15/22 16:07 Pulse Ox FiO2 GENERAL: Well-developed in no acute distress. HEENT: No scleral icterus. Extraocular movements grossly intact. Hears conversational speech. No nasal drainage. NECK: Supple without lymphadenopathy. CHEST: Nonlabored respirations with equal bilateral excursions. CARDIOVASCULAR: Regular rate and regular rhythm. Distal 2+ pulses. ABDOMEN: No infection. Soft, non-tender. MUSCULOSKELETAL: No clubbing, cyanosis. NEURO: No focal or lateralizing signs. Cranial nerves 2 through 12 grossly within normal limits. PSYCH: Appropriate affect. Alert and oriented to person, place and time. SKIN: Good skin turgor. Well perfused. REPORTS: CT scans from [facility] reviewed with hiatal hernia described. ASSESSMENT: 1. Morbid obesity due to excess calories 2. Body mass index of 47.0 to 34.8 3. Osteoarthritis of the knees. 4. Osteoarthritis of the hips. 5. Osteoarthritis of the lower back. 6. Obstructive sleep apnea. 7. Hypertensive heart disease. 8. Osteoarthritis of the ankles. 9. Status post sleeve gastrectomy 10. Vitamin A deficiency 11. Copper deficiency 12. Atypical chest pain 13. Epigastric pain 14. Dysphagia 15. Screening for malignant neoplasm PLAN: 1. Recommend Levsin GI cocktail for epigastric pain and prescribed. 2. Recommend EGD for dysphagia 3. He is evaluating for colonoscopy as he is due. 4. Recommend esophogram for dysmotility and atypical chest pain. Assessment/Plan Plan: Date: Initial Weight: 143.29 kg Initial BMI: Current Weight: Current BMI: Type of Surgery: Total Volume in Band: Previous Volume: Volume Removed: Volume Added: Band Size:
[2022-04-15 16:10] VITALS: BP 124/79; PULSE 75; RESP 16; TEMP 98.6; BMI 34.8
== END ==
LOC: BARWHC3 13:16
PROVIDERS: ATTEND Surgery Plastic and Reconstructive Surgery
DX: E66.01 Morbid (severe) obesity due to excess calories (principal); R13.10 Dysphagia, unspecified; E61.0 Copper deficiency; E50.9 Vitamin A deficiency, unspecified; G47.33 Obstructive sleep apnea (adult) (pediatric); R07.9 Chest pain, unspecified; I11.0 Hypertensive heart disease with heart failure; Z68.42 Body mass index [BMI] 45.0-49.9, adult; Z98.84 Bariatric surgery status; Z91.010 Allergy to peanuts; Z88.5 Allergy status to narcotic agent; Z91.013 Allergy to seafood; Z88.2 Allergy status to sulfonamides; Z88.8 Allergy status to other drugs, medicaments and biological substances; Z91.048 Other nonmedicinal substance allergy status
CPT/HCPCS: 99211

== ENCOUNTER 2022-05-04 07:26 | Day surgery (SDC) | payer BC ==
[2022-04-28 09:08] VITALS: BMI 34.7
[~2022-05-04 07:26] MED LIST changes: +LIDOCAINE 1% (10MG/ML) FOR IV START INTRADERMA PRN; -LIDOCAINE 1% 20 ML VIAL (10MG/ML) FOR IV START INTRADERMA ONE; -LIDOCAINE 1% INJ 10MG/ML (20 ML MDV) ONE; -PROPOFOL 10 MG/ML 20 ML VIAL IV ONE
--- NOTE | 2022-05-04 07:37 | P.GSHP ---
History of Present Illness H&P Date: 05/04/22 CHIEF COMPLAINT: GERD and colon screen HISTORY OF PRESENT ILLNESS: The patient is a 52-year-old male who presents with gastroesophageal reflux disease and need for colon screen. Upper and lower endoscopy were offered for further evaluation and management. PAST MEDICAL HISTORY: Please see list. PAST SURGICAL HISTORY: Please see list. MEDICATIONS: Please see list. ALLERGIES: Please see list. SOCIAL HISTORY: No illicit drug use FAMILY HISTORY: No reports of Crohn disease or ulcerative colitis. REVIEW OF ORGAN SYSTEMS: CONSTITUTIONAL: No reports of fevers or chills. GI: Denies any blood in stools or constipation. PHYSICAL EXAM: VITAL SIGNS: Stable GENERAL: Well-developed pleasant in no acute distress. HEENT: No scleral icterus. Extraocular movements grossly intact. Moist buccal mucosa. NECK: Supple without lymphadenopathy. CHEST: Unlabored respirations. Equal bilateral excursions. CARDIOVASCULAR: Regular rate and rhythm. Distal 2+ pulses. ABDOMEN: Soft, nondistended. MUSCULOSKELETAL: No clubbing, cyanosis, or edema. ASSESSMENT: 1. Gastroesophageal reflux disease 2. Colon screen. PLAN: 1. Recommend proceeding with an upper and lower endoscopy Past Medical History Past Medical History: GERD/Reflux, Hearing Disorder / Deafness, Hypertension, Osteoarthritis (OA), Sleep Apnea/CPAP/BIPAP, Thyroid Disorder Additional Past Medical History / Comment(s): Hx hiatal hernia w/ surgery. Hx H TN and CRISTELA - no medications or sleep apnea device since weight loss. Arthritis bilateral knees, hips, ankles, low back and right shoulder. Hx H Pylori X2, iron deficiency, Vitamin D deficiency. Hx sinus problems. Mutliple food allergies. Spinal stenosis - having cervical fusion. Thyroid nodule. Left ear Tinnitus/30% hearing loss. History of Any Multi-Drug Resistant Organisms: None Reported Past Surgical History: Bariatric Surgery, Cholecystectomy, Hernia Repair, Tonsillectomy Additional Past Surgical History / Comment(s): 12/20/17 Maddy Fundoplication, EGD, septoplasty/sinuplasty, deviated septum surgery, vasectomy, circumcision, sleeve gastrectomy 08-01-18 ([facility]). Past Anesthesia/Blood Transfusion Reactions: Previous Problems w/ Anesthesia, Motion Sickness Additional Past Anesthesia/Blood Transfusion Reaction / Comment(s): Difficulty/slow waking up. Past Psychological History: Depression Smoking Status: Never smoker Past Alcohol Use History: None Reported Past Drug Use History: None Reported - Past Family History Mother Family Medical History: No Reported History Father Family Medical History: Diabetes Mellitus, Hypertension Additional Family Medical History / Comment(s): Type 2 DM. Brother(s) Family Medical History: Pulmonary Embolus Additional Family Medical History / Comment(s): PE caused Medications and Allergies Home Medications Medication Instructions Recorded Confirmed Type Venlafaxine HCl [Effexor XR] 75 mg PO PC-LUNCH 09/26/21 04/28/22 History Acetaminophen Tab [Tylenol] 650 mg PO Q6HR PRN tab 03/29/22 04/28/22 Rx Hyoscyamine Elixir [Levsin 0.125 mg PO TID #10 ml 04/15/22 04/28/22 Rx 0.125MG/ML Drops] Sucralfate [Carafate] 1 gm PO BID #480 ml 04/15/22 04/28/22 Rx HYDROcodone/APAP 10-325MG [[place] 1 tab PO Q6HR PRN 04/28/22 04/28/22 History 10-325] Ketorolac [Toradol] 10 mg PO Q6HR PRN 04/28/22 04/28/22 History methocarbamoL [Methocarbamol] 750 mg PO TID PRN 04/28/22 04/28/22 History Allergies Allergy/AdvReac Type Severity Reaction Status Date / Time corn Allergy Anaphylaxis Verified 04/28/22 09:09 lactose Allergy Diarrhea Verified 04/28/22 09:09 peas Allergy Anaphylaxis Verified 04/28/22 09:09 pollen extracts Allergy Rash/Hives Verified 04/28/22 09:09 Poultry Allergy Anaphylaxis Verified 04/28/22 09:09 tuna oil Allergy Anaphylaxis Verified 04/28/22 09:09 omeprazole AdvReac Severe "BONE PAIN" Verified 04/28/22 09:09 pantoprazole [From Protonix] AdvReac Severe forearms Verified 04/28/22 09:09 swollen & red,warm adhesive AdvReac Rash/Hives Verified 04/28/22 09:09 famotidine [From Pepcid] AdvReac bone & Verified 04/28/22 09:09 muscle pain tuna Allergy Anaphylaxis Uncoded 04/28/22 09:09
[2022-05-04 08:02] VITALS: TEMP 97
[2022-05-04] MEDS ORDERED: PROPOFOL 10 MG/ML 20 ML VIAL IV ONE (08:08)
[2022-05-04] MEDS ORDERED: LIDOCAINE 2% INJ 20 MG/ML (2 ML VIAL) ONE (08:08)
--- NOTE | 2022-05-04 08:43 | P.PCN ---
Date of Procedure: 05/04/22 Description of Procedure: PREOPERATIVE DIAGNOSIS: Gastroesophageal reflux disease. Obesity due to excess calories, BMI 33.6 History of sleeve gastrectomy POSTOPERATIVE DIAGNOSIS: Gastroesophageal reflux disease with erosive esophagitis Esophageal ulcer Falcno's esophagus Obesity due to excess calories, BMI 33.6 Gastritis. Diaphragmatic hiatal hernia OPERATION: Esophagogastroduodenoscopy with biopsies along antrum, esophagus and duodenum SURGEON: Ximena Caro MD ANESTHESIA: MAC. INDICATIONS: The patient is a 52-year-old male who presents with reflux disease. Benefits and risks of the procedure were described. Informed consent was obtained. DESCRIPTION: The patient was brought into the endoscopy suite and laid in the left lateral decubitus position. An Olympus gastroscope was passed along the posterior oropharynx down to the distal esophagus where the squamocolumnar junction was en countered at 27 cm from the incisors from Falcon's esophagus to 37 cm from the incisors. The stomach was entered and no bile reflux was found. Additional findings are listed below. Biopsies with cold forceps were obtained of the antrum. The first through third portion of the duodenum was examined. Retroflexion of the scope sleeve gastrectomy of appropriate size. The squamocolumnar junction demonstrated LA grade D erosive esophagitis. The stomach was desufflated. The patient tolerated the procedure well. FINDINGS: Squamocolumnar junction 27 cm from the incisors. Falcon's esophagus 27-37 cm from the incisors with ulcer at 37 cm from the incisors, 2 cm 2 acute on chronic without bleeding Diaphragmatic hiatus at 40 cm. Hiatal hernia, 3-cm Sleeve reservoir appropriate caliber LA grade D erosive esophagitis. Biopsies obtained of duodenal biopsies obtained Chronic gastritis with biopsies obtained RECOMMENDATIONS: Recommend Carafate 1 g 3 times daily for 2 months Repeat upper endoscopy in 4-6 weeks
[2022-05-04 08:47] VITALS: RESP 16
--- NOTE | 2022-05-04 08:47 | P.PCN ---
Date of Procedure: 05/04/22 Description of Procedure: PREOPERATIVE DIAGNOSIS: Personal history colon polyps Colonoscopy screening. POSTOPERATIVE DIAGNOSIS: Colonoscopy screening. Diverticulosis, scattered. OPERATION: Colonoscopy to the cecum, ileocecal valve and appendiceal orifice. SURGEON: Ximena Caro MD. ANESTHESIA: MAC. INDICATIONS: The patient is a 52-year-old female who presents for colonoscopy screening. Benefits and risks were described and informed consent was obtained. DESCRIPTION OF PROCEDURE: The patient had undergone Sutab prep. The patient had been brought into the operating room and laid in the left lateral decubitus position. After adequate intravenous sedation, the rectum was examined with 2% lidocaine jelly. The prostate was unremarkable. External hemorrhoids were encountered. The rectal tone was within normal limits. No lesions were palpated in the rectal vault. An Olympus colonoscope was advanced until the cecum, ileocecal valve and appendiceal orifice were clearly viewed. The prep was good. Scattered diverticulosis was encountered. No colonic polyps were found. No evidence of f ocal colitis was found. Retroflexion of the scope demonstrated grade 2 internal hemorrhoids without active bleeding or inflammation. The colon was desufflated. The patient had tolerated the procedure well. Withdrawal time was over 6 minutes. FINDINGS: Aronchick preparation quality scale 2 (1-5) Internal hemorrhoids, grade 2 External prolapsed hemorrhoids, grade 2 No arteriovenous malformations. No adenomatous polyps. Scattered sigmoid diverticulosis No focal colitis. RECOMMENDATIONS: Lower endoscopy in 5 years, 2027 Plan - Discharge Summary Discharge Rx Participant: No New Discharge Prescriptions: New Sucralfate [Carafate] 1 gm PO TID #90 tab Continue Venlafaxine HCl [Effexor XR] 75 mg PO PC-LUNCH Acetaminophen Tab [Tylenol] 650 mg PO Q6HR PRN tab PRN Reason: Mild Pain Or Fever > 100.5 Hyoscyamine Elixir [Levsin 0.125MG/ML Drops] 0.125 mg PO TID #10 ml HYDROcodone/APAP 10-325MG [[place] 10-325] 1 tab PO Q6HR PRN PRN Reason: Pain methocarbamoL [Methocarbamol] 750 mg PO TID PRN PRN Reason: Muscle Spasm Discontinued Ketorolac [Toradol] 10 mg PO Q6HR PRN PRN Reason: Pain Sucralfate [Carafate] 1 gm PO BID #480 ml Discharge Medication List Venlafaxine HCl [Effexor XR] 75 mg PO PC-LUNCH 09/26/21 [History] Acetaminophen Tab [Tylenol] 650 mg PO Q6HR PRN tab 03/29/22 [Rx] Hyoscyamine Elixir [Levsin 0.125MG/ML Drops] 0.125 mg PO TID #10 ml 04/15/22 [Rx] HYDROcodone/APAP 10-325MG [[place] 10-325] 1 tab PO Q6HR PRN 04/28/22 [History] methocarbamoL [Methocarbamol] 750 mg PO TID PRN 04/28/22 [History] Sucralfate [Carafate] 1 gm PO TID #90 tab 05/04/22 [Rx] Follow up Appointment(s)/Referral(s): [facility] [[facility]-STAFF] - 05/20/22 Patient Instructions/Handouts: Peptic Ulcer (GEN), Gastritis (DC), Hiatal Hernia (DC), Diverticulosis Diet (GEN), Diverticulosis (DC) Activity/Diet/Wound Care/Special Instructions: Repeat colonoscopy in 5 years, 2027 Discharge Disposition: HOME SELF-CARE
[2022-05-04 09:09] VITALS: BP 121/78; PULSE 73
== END 2022-05-04 09:46 | disposition home or self-care (01) ==
LOC: ORWHC2ENDO 07:26
PROVIDERS: ATTEND Surgery Plastic and Reconstructive Surgery
DX: Z12.11 Encounter for screening for malignant neoplasm of colon (principal); K64.1 Second degree hemorrhoids; K64.4 Residual hemorrhoidal skin tags; K44.9 Diaphragmatic hernia without obstruction or gangrene; K57.30 Diverticulosis of large intestine without perforation or abscess without bleeding; K22.70 Barrett's esophagus without dysplasia; E66.09 Other obesity due to excess calories; Z68.33 Body mass index [BMI] 33.0-33.9, adult; Z79.899 Other long term (current) drug therapy; Z86.010 Personal history of colon polyps
CPT/HCPCS: 45378; 88305; 43239; J2704; J2001

== ENCOUNTER → 2022-05-13 | Outpatient (CLI) | payer BC ==
[2022-05-13 16:42] VITALS: BP 122/81; PULSE 82; TEMP 98.1; BMI 36.0
--- NOTE | 2022-05-13 17:09 | P.PN ---
Progress Note - Text Progress Note Date: 05/13/22 To whom it may concern: Joey Chaney is under my surgical care. He is clear to undergo cervical fusion. Please avoid oral NSAIDs due to large acute esophageal ulcer. Please continue Carafate. Regards, Ximena Caro MD FACS
--- NOTE | 2022-05-13 17:11 | P.BASOAP ---
Subjective Progress Note Date: 05/13/22 Large ulcer. Severe reflux disease with new kwon's. Recommend continue carafate. Recommend gastric bypass. Objective - Vital Signs Vital signs: Vital Signs Temp 98.1 F 05/13/22 16:38 Pulse 82 05/13/22 16:38 Resp BP 122/81 05/13/22 16:38 Pulse Ox FiO2 Intake & Output 05/12/22 05/13/22 05/13/22 18:59 06:59 18:59 Weight 109.769 kg Assessment/Plan Plan: Date: 05/13/22 Initial Weight: 143.29 kg Initial BMI: 47.0 Current Weight: 109.769 kg Current BMI: 36.0 Type of Surgery: Total Volume in Band: Previous Volume: Volume Removed: Volume Added: Band Size:
== END ==
LOC: BARWHC3 15:54
PROVIDERS: ATTEND Surgery Plastic and Reconstructive Surgery
DX: E66.01 Morbid (severe) obesity due to excess calories (principal); Z68.36 Body mass index [BMI] 36.0-36.9, adult; Z91.018 Allergy to other foods; Z91.048 Other nonmedicinal substance allergy status
CPT/HCPCS: 99211

== ENCOUNTER 2022-07-27 07:53 | Day surgery (SDC) | payer BC ==
[2022-07-24 08:45] VITALS: BMI 35.4
--- NOTE | 2022-07-27 07:04 | P.GSHP ---
History of Present Illness H&P Date: 07/27/22 CHIEF COMPLAINT: GERD HISTORY OF PRESENT ILLNESS: The patient is a 52-year-old male who presents reports gastroesophageal reflux disease. Upper endoscopy was offered for further evaluation and management. PAST MEDICAL HISTORY: Please see list. PAST SURGICAL HISTORY: Please see list. MEDICATIONS: Please see list. ALLERGIES: Please see list. SOCIAL HISTORY: No illicit drug use FAMILY HISTORY: No reports of Crohn disease or ulcerative colitis. REVIEW OF ORGAN SYSTEMS: CONSTITUTIONAL: No reports of fevers or chills. GI: Denies any blood in stools or constipation. PHYSICAL EXAM: VITAL SIGNS: Stable GENERAL: Well-developed and pleasant in no acute distress. HEENT: No scleral icterus. Extraocular movements grossly intact. Moist buccal mucosa. NECK: Supple without lymphadenopathy. CHEST: Unlabored respirations. Equal bilateral excursions. CARDIOVASCULAR: Regular rate and rhythm. Distal 2+ pulses. ABDOMEN: Soft, nondistended. MUSCULOSKELETAL: No clubbing, cyanosis, or edema. ASSESSMENT: 1. Gastroesophageal reflux disease PLAN: 1. Recommend proceeding with an upper endoscopy Past Medical History Past Medical History: GERD/Reflux, Hearing Disorder / Deafness, Osteoarthritis (OA), Sleep Apnea/CPAP/BIPAP, Thyroid Disorder Additional Past Medical History / Comment(s): Hx hiatal hernia w/ surgery. Hx HTN and CRISTELA - no medications or sleep apnea device since weight loss. Arthritis bilateral knees, hips, ankles, low back and right shoulder. Hx H Pylori X2, iron deficiency, Vitamin D deficiency. Hx sinus problems. Mutliple food allergies. Spinal stenosis - having cervical fusion. Thyroid nodule. Left ear Tinnitus/30% hearing loss. History of Any Multi-Drug Resistant Organisms: None Reported Past Surgical History: Bariatric Surgery, Cholecystectomy, Hernia Repair, Tonsillectomy Additional Past Surgical History / Comment(s): 12/20/17 Maddy Fundoplication, EGD, septoplasty/sinuplasty, deviated septum surgery, vasectomy, circumcision, sleeve gastrectomy 08-01-18 ([facility]). cervical fusion c5 through c7 june 05/2023 Past Anesthesia/Blood Transfusion Reactions: Previous Problems w/ Anesthesia, Motion Sickness Additional Past Anesthesia/Blood Transfusion Reaction / Comment(s): Difficulty/slow waking up. no blood transfusions Smoking Status: Never smoker - Past Family History Mother Family Medical History: No Reported History Father Family Medical History: Diabetes Mellitus, Hypertension Additional Family Medical History / Comment(s): Type 2 DM. Brother(s) Family Medical History: Pulmonary Embolus Additional Family Medical History / Comment(s): PE caused Medications and Allergies Home Medications Medication Instructions Recorded Confirmed Type Acetaminophen Tab [Tylenol] 650 mg PO Q6HR PRN tab 03/29/22 07/24/22 Rx HYDROcodone/APAP 10-325MG [[place] 1 tab PO Q6HR PRN 04/28/22 07/24/22 History 10-325] methocarbamoL [Methocarbamol] 750 mg PO TID PRN 04/28/22 07/24/22 History Diclofenac Sodium [Voltaren 1 applic TOPICAL DAILY 05/13/22 07/24/22 History Arthritis Pain 1% Gel] Hyoscyamine Elixir [Levsin 0.125 mg PO TID PRN 07/24/22 07/24/22 History 0.125MG/ML Drops] Sucralfate [Carafate] 1 gm PO TID 07/24/22 07/24/22 History Allergies Allergy/AdvReac Type Severity Reaction Status Date / Time corn Allergy Anaphylaxis Verified 07/24/22 08:32 lactose Allergy Diarrhea Verified 07/24/22 08:32 peas Allergy Anaphylaxis Verified 07/24/22 08:32 pollen extracts Allergy Rash/Hives Verified 07/24/22 08:32 Poultry Allergy Anaphylaxis Verified 07/24/22 08:32 tuna oil Allergy Anaphylaxis Verified 07/24/22 08:32 omeprazole AdvReac Severe "BONE PAIN" Verified 07/24/22 08:32 pantoprazole [From Protonix] AdvReac Severe forearms Verified 07/24/22 08:32 swollen & red,warm adhesive AdvReac Rash/Hives Verified 07/24/22 08:32 famotidine [From Pepcid] AdvReac bone & Verified 07/24/22 08:32 muscle pain tuna Allergy Anaphylaxis Uncoded 05/11/22 12:58
[2022-07-27] MEDS ORDERED: LACTATED RINGERS 1,000 ML IV ONE (08:01)
[2022-07-27] MEDS ORDERED: LIDOCAINE 1% (10MG/ML) FOR IV START INTRADERMA PRN (08:03)
[2022-07-27] MEDS ORDERED: LACTATED RINGERS 1,000 ML IV SCH (08:03)
[2022-07-27 08:20] VITALS: TEMP 98.6
[2022-07-27] MEDS ORDERED: LIDOCAINE 2% INJ 20 MG/ML (2 ML VIAL) ONE (08:50)
[2022-07-27] MEDS ORDERED: PROPOFOL 10 MG/ML 20 ML VIAL IV ONE (08:50)
[2022-07-27 09:11] VITALS: PULSE 78
--- NOTE | 2022-07-27 09:20 | P.PCN ---
Date of Procedure: 07/27/22 Description of Procedure: PREOPERATIVE DIAGNOSIS: Gastroesophageal reflux disease. Morbid obesity. Falcon's esophagus History of sleeve gastrectomy POSTOPERATIVE DIAGNOSIS: Gastroesophageal reflux disease. History of sleeve gastrectomy Morbid obesity. Gastritis. Diaphragmatic hiatal hernia, recurrent Falcon's esophagus OPERATION: Esophagogastroduodenoscopy with biopsies along antrum, esophagus, duodenum. SURGEON: Ximena Caro MD ANESTHESIA: MAC. INDICATIONS: The patient is a 52-year-old male who presents with Falcon's esophagus with severe reflux disease. Benefits and risks of the procedure were described. Informed consent was obtained. DESCRIPTION: The patient was brought into the endoscopy suite and laid in the left lateral decubitus position. An Olympus gastroscope was passed along the posterior oropharynx down to the distal esophagus where the squamocolumnar junction was encountered at 28 cm from the incisors. The stomach was entered and no bile reflux was found. Additional findings are listed below. Biopsies with cold forceps were obtained of the antrum. The first through third portion of the duodenum was examined.the sleeve reservoir was within normal limits. The squamocolumnar junction demonstrated LA grade D erosive esophagitis. The stomach was desufflated. The patient tolerated the procedure well. FINDINGS: Squamocolumnar junction 28 cm from the incisors. Falcon's esophagus 28 to 38 cm from the incisors Hiatal hernia, 3 cm Sleeve reservoir within normal LA grade D erosive esophagitis. Biopsies obtained duodenal Chronic gastritis with biopsies obtained RECOMMENDATIONS: Repeat upper endoscopy 3 years, 2025 May benefit from antireflux operation. Plan - Discharge Summary Discharge Rx Participant: No New Discharge Prescriptions: Continue Acetaminophen Tab [Tylenol] 650 mg PO Q6HR PRN tab PRN Reason: Mild Pain Or Fever > 100.5 Hyoscyamine Elixir [Levsin 0.125MG/ML Drops] 0.125 mg PO TID PRN PRN Reason: Pain HYDROcodone/APAP 10-325MG [[place] 10-325] 1 tab PO Q6HR PRN PRN Reason: Pain methocarbamoL [Methocarbamol] 750 mg PO TID PRN PRN Reason: Muscle Spasm Diclofenac Sodium [Voltaren Arthritis Pain 1% Gel] 1 applic TOPICAL DAILY Sucralfate [Carafate] 1 gm PO TID Discharge Medication List Acetaminophen Tab [Tylenol] 650 mg PO Q6HR PRN tab 03/29/22 [Rx] HYDROcodone/APAP 10-325MG [[place] 10-325] 1 tab PO Q6HR PRN 04/28/22 [History] methocarbamoL [Methocarbamol] 750 mg PO TID PRN 04/28/22 [History] Diclofenac Sodium [Voltaren Arthritis Pain 1% Gel] 1 applic TOPICAL DAILY 05/13/22 [History] Hyoscyamine Elixir [Levsin 0.125MG/ML Drops] 0.125 mg PO TID PRN 07/24/22 [History] Sucralfate [Carafate] 1 gm PO TID 07/24/22 [History] Follow up [facility]ment(s[facility] [place] [facility] Patient Instructions/Handouts: *Surgery [facility] - (Anesthesia) Discharge Instructions Outpatient Surgery, Upper Endoscopy (DC) Discharge Disposition: HOME SELF-CARE
[2022-07-27 09:32] VITALS: BP 115/78; RESP 18
== END 2022-07-27 09:59 | disposition home or self-care (01) ==
LOC: ORWHC2ENDO 07:53
PROVIDERS: ATTEND Surgery Plastic and Reconstructive Surgery
DX: K31.89 Other diseases of stomach and duodenum (principal); K21.00 Gastro-esophageal reflux disease with esophagitis, without bleeding; E66.01 Morbid (severe) obesity due to excess calories; K22.70 Barrett's esophagus without dysplasia; K44.9 Diaphragmatic hernia without obstruction or gangrene; M19.90 Unspecified osteoarthritis, unspecified site; G47.30 Sleep apnea, unspecified; I10 Essential (primary) hypertension; E07.9 Disorder of thyroid, unspecified; Z90.49 Acquired absence of other specified parts of digestive tract; Z90.89 Acquired absence of other organs; Z98.1 Arthrodesis status; Z98.890 Other specified postprocedural states; Z79.899 Other long term (current) drug therapy; Z83.3 Family history of diabetes mellitus; Z79.1 Long term (current) use of non-steroidal anti-inflammatories (NSAID); Z68.35 Body mass index [BMI] 35.0-35.9, adult
CPT/HCPCS: 43239; J2704; J2001; 88305

== ENCOUNTER → 2022-08-05 | Outpatient (CLI) | payer BC ==
[2022-08-05 15:54] VITALS: BP 111/88; PULSE 73; TEMP 98.3; BMI 36.7
--- NOTE | 2022-08-05 16:03 | P.BASOAP ---
Subjective Progress Note Date: 08/05/22 He reports severe fatigue. Plan for repeat blood work for severe anemia. Needs repeat carafate. Sent cholecysteramine for diarrhea. Objective - Vital Signs Vital signs: Vital Signs Temp 98.3 F 08/05/22 15:50 Pulse 73 08/05/22 15:50 Resp BP 111/88 08/05/22 15:50 Pulse Ox FiO2 Intake & Output 08/04/22 08/05/22 08/05/22 18:59 06:59 18:59 Weight 112.037 kg Assessment/Plan Plan: Date: 08/05/22 Initial Weight: 143.29 kg Initial BMI: 47.0 Current Weight: 112.037 kg Current BMI: 36.7 Type of Surgery: Total Volume in Band: Previous Volume: Volume Removed: Volume Added: Band Size:
== END ==
LOC: BARWHC3 14:51
PROVIDERS: ATTEND Surgery Plastic and Reconstructive Surgery
DX: E66.01 Morbid (severe) obesity due to excess calories (principal); Z68.36 Body mass index [BMI] 36.0-36.9, adult; Z91.018 Allergy to other foods; Z91.048 Other nonmedicinal substance allergy status; Z88.8 Allergy status to other drugs, medicaments and biological substances; Z91.014 Allergy to mammalian meats; Z91.011 Allergy to milk products
CPT/HCPCS: 99211

== ENCOUNTER → 2022-08-06 | Outpatient (CLI) | payer BC ==
[2022-08-06 09:06] LABS: INR 0.9 (<1.2); Partial Thromboplastin Time 24.9 sec (22.0-30.0); Prothrombin Time 10.1 sec (9.0-12.0)
[2022-08-06 11:04] LABS: HCT 46.7 % (39.6-50.0); HGB 15.1 d/dL (12.0-15.0); MCH 31.5 pg (27.0-32.0); MCHC 32.3 d/dL (32.0-37.0); MCV 97.3 FL (80.0-97.0); Mean Platelet Volume 11.3 FL (9.5-12.2); NRBC Per 100 WBC 0 X 10*3/uL (0.00-0.01); Platelet Count 204 X 10*3/uL (140-440); RDW 12.3 % (11.5-14.5); WBC 4.71 X 10*3/uL (4.50-10.00)
[2022-08-06 14:18] LABS: Prealbumin 23.2 mg/dL (18.0-42.0)
[2022-08-06 14:39] LABS: % Iron Saturation 26.38 (15.00-50.00); ALT 25 U/L (10-49); AST 25 U/L (14-35); Albumin 4.7 d/dL (3.8-4.9); Albumin/Globulin Ratio 2.14 Ratio (1.60-3.17); Alkaline Phosphatase 76 U/L (41-126); BUN/Creat Ratio 16.38 Ratio (12.00-20.00); Blood Urea Nitrogen 13.1 mg/dL (9.0-27.0); Calcium 9.7 mg/dL (8.7-10.3); Carbon Dioxide 25.6 mmol/L (21.6-31.8); Chloride 105 mmol/L (96-109); Chol/HDL Ratio 3.24 Ratio; Globulin 2.2 d/dL (1.6-3.3); Glucose 90 mg/dL (70-110); Iron 86 UG/DL (65-175); LDL Cholesterol,Calculated 107.4 mg/dL (0.0-131.0); Magnesium 2.3 mg/dL (1.5-2.4); Phosphorus 3.4 mg/dL (2.4-5.1); Sodium 144 mmol/L (135-145); Total Bilirubin 0.5 mg/dL (0.3-1.2); Total Iron Binding Capacity 326 UG/DL (228-460); Total Protein 6.9 d/dL (6.2-8.2); VLDL Calculation 18.54 mg/dL (5.00-40.00)
[2022-08-09 11:05] LABS: Zinc, Serum 78 ug/dL (60-130)
== END | disposition home or self-care (01) ==
LOC: LABWHC1 07:51
PROVIDERS: ATTEND Surgery Plastic and Reconstructive Surgery
DX: E66.01 Morbid (severe) obesity due to excess calories (principal); D50.8 Other iron deficiency anemias; K91.2 Postsurgical malabsorption, not elsewhere classified; E44.0 Moderate protein-calorie malnutrition; E44.1 Mild protein-calorie malnutrition; E45 Retarded development following protein-calorie malnutrition; E55.9 Vitamin D deficiency, unspecified; K74.1 Hepatic sclerosis; N19 Unspecified kidney failure; T56.894A Toxic effect of other metals, undetermined, initial encounter; K50.90 Crohn's disease, unspecified, without complications
CPT/HCPCS: 36415; 80053; 80061; 82306; 82525; 82607; 82728; 82746; 83036; 83540; 83550; 83735; 83970; 84100; 84134; 84255; 84425; 84443; 84590; 84630; 85027; 85610; 85730

== ENCOUNTER → 2023-04-21 | Outpatient (CLI) | payer BC ==
[2023-04-22 11:02] LABS: Gluten IgE Class CLASS 0/1; Yellow Jacket IgE Class CLASS 0/1
[2023-04-22 11:03] LABS: Honeybee Venom IgE Class CLASS 0/1
== END | disposition home or self-care (01) ==
LOC: LABWHC1 13:54
PROVIDERS: ATTEND Nurse Practitioner Family
DX: Z91.018 Allergy to other foods (principal); Z91.030 Bee allergy status
CPT/HCPCS: 36415; 86003

== ENCOUNTER 2023-05-21 14:47 | Emergency (ER) | payer OTHER, BC ==
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
[2023-05-21] MEDS: ACETAMINOPHEN TAB 500 MG TAB PO STA (15:18)
[2023-05-21 15:19] VITALS: RESP 18
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
[2023-05-21 16:29] VITALS: BP 111/68; PULSE 72; TEMP 98.1
== END 2023-05-21 15:54 | disposition home or self-care (01) ==
LOC: EC 14:47
DX: M54.2 Cervicalgia (principal); Z91.011 Allergy to milk products; Z91.010 Allergy to peanuts; Z88.5 Allergy status to narcotic agent; Z88.8 Allergy status to other drugs, medicaments and biological substances; V49.40XA Driver injured in collision with unspecified motor vehicles in traffic accident, initial encounter; Y92.410 Unspecified street and highway as the place of occurrence of the external cause
CPT/HCPCS: 70450; 72125; 99283